=== PATIENT | male | born 1935 | race Caucasian/White ===

== ENCOUNTER 2019-06-08 06:17 | Inpatient (IN) ==
--- NOTE | 2019-05-16 09:43 | Anesthesiology Consultation ---
Date of Service May 16, 2019 Assessment & Plan (1) Encounter for pre-operative examination: - Awaiting review preop testing. - Awaiting surgeon-ordered PCP clearance done 05/11 (Dr. Verdin). Chart Review Chart Review: Patient seen in Pre Admission Testing Teaching & Discussion Pre-Anesthesia Teaching/Discussion Notes: Instructed NPO after midnight before surgery,except medications with 15 cc of water. Medication instructions provided according to the PAT guidelines. History Surgery Operation Date: 06/08/19 08:55 Proposed Procedures p Left Total Knee Arthroplasty - Flash Vogt MD Height/Weight Height: 5 ft 4 in Weight: 75.1 kg Allergies Allergy/AdvReac Type Severity Reaction Status Date / Time No Known Allergies Allergy Unknown Verified 05/10/19 10:14 Medications Home Medications Medication Instructions Recorded Confirmed Last Taken No Known Home Medications 05/09/18 05/10/19 Unknown Past Medical History Medical History Hearing deficit Osteoarthritis Prostate cancer 1993 s/p prostatectomy (per patient, unable to cath d/t scar tissue), no chemo/XRT Exercise / Class Metabolic Activity III < 4 Walking/Shop/Light housework Past Surgical History Surgical History H/O prostatectomy History of appendectomy History of cataract extraction right/left Hx of left inguinal hernia repair incarcerated hernia with bowel obstruction Past Anesthesia History No Family Hx of Anesthesia Complications and Other "Awareness" with colonoscopy/cataracts extraction. History of PONV No Hx of PONV and Hx of Motion Sickness ("seasick" x 1) Social History Smoking Status: Former smoker Do You Dip or Chew Tobacco: No Smoking End Date: QUIT 1985 Hx Alcohol Use: Yes Alcohol type: wine alcohol intake frequency: a few times a month Hx Substance Use: No substance use type: does not use Review of Systems Patient denies chest pain, shortness of breath, reflux, cough, wheezing, palpitations. Physical Exam Vital Signs VITALS BP 154/84 (Patient advised to followup with PCP regarding elevated BP) P 66 TEMP 97.5 SP02 95%RA RESP 16 PHYSICAL Full neck and c-spine range of motion. Full TMJ range of motion. TMD 3 finger breaths Mallampati Score 2 Dentition: full dentures upper/lower; edentulous Lungs: clear throughout to auscultation Cardiac: regular rate and rhythm, no murmurs noted Spine: normal Carotid arteries: negative bruit Extremities: no edema Testing Laboratory Results 05/16/19 10:03 05/16/19 10:03 PT 10.5 Seconds (9.0-12.0) 05/16/19 10:03 INR 1.0 (0.9-1.1) 05/16/19 10:03 APTT 26.9 Seconds (21.0-31.0) 05/16/19 10:03 Urine Color Yellow 05/16/19 10:03 Urine Appearance Clear (Clear) 05/16/19 10:03 Urine pH 7.0 (4.5-7.5) 05/16/19 10:03 Ur Specific Meade 1.015 (1.000-1.030) 05/16/19 10:03 Urine Protein Negative (Negative) 05/16/19 10:03 Urine Glucose (UA) Negative (Negative) 05/16/19 10:03 Urine Ketones Negative (Negative) 05/16/19 10:03 Urine Nitrite Negative (Negative) 05/16/19 10:03 Ur Leukocyte Esterase Negative (Negative) 05/16/19 10:03 Blood Type A Positive 05/16/19 10:03 Antibody Screen NEGATIVE 05/16/19 10:03 Electrocardiogram Date: 05/11/19 Findings: + NSR @ (68)
--- NOTE | 2019-05-16 10:49 | XRay Report ---
XR chest Pre-admission PA/Lat CLINICAL HISTORY: PAT preoperative COMPARISON STUDY: 01/23/2015 FINDINGS: The bones soft tissues and hemidiaphragms are normal. The cardiomediastinal silhouette is n ormal. The lungs are clear. The pulmonary vasculature is normal. IMPRESSION: Negative chest. The above report was generated using voice recognition software. It may contain grammatical, syntax or spelling errors. Electronically signed by: Omar Lindsay M.D. 05/16/2019 10:48 AM
[2019-05-16 10:54] LABS: Basophils # (auto) 0.01 K/uL (0-0.2); Basophils % (auto) 0.2 %; Eosinophils # (auto) 0.09 K/uL (0-0.5); Eosinophils % (auto) 2.1 %; Hematocrit (blood only) 38.3 % (42-52); Hemoglobin 12.7 g/dL (14.0-18.0); Immature Granulocytes # (auto) 0.02 K/uL (0.00-0.02); Immature Granulocytes % (auto) 0.5 %; Lymphocytes # (auto) 1.24 K/uL (1.2-3.4); Lymphocytes % (auto) 29.2 %; Mean Corpuscular Hemoglobin 30.6 pg (25-34); Mean Corpuscular Hgb Conc 33.2 g/dL (32-36); Mean Corpuscular Volume 92.3 fL (80-100); Mean Platelet Volume 11.3 fL (7.4-10.4); Monocytes # (auto) 1.02 K/uL (0.11-0.59); Monocytes % (auto) 24.1 %; Neutrophils # (auto) 1.86 K/uL (1.4-6.5); Neutrophils % (auto) 43.9 %; Platelet Count 230 K/uL (130-400); RDW Coefficient of Variation 12.7 % (11.5-14.5); RDW Standard Deviation 42.8 fL (36.4-46.3); Red Blood Count 4.15 M/uL (4.7-6.1); White Blood Count 4.24 K/uL (4.8-10.8)
[2019-05-16 10:57] LABS: Appearance Urine Clear (Clear); Bilirubin Urine Negative (Negative); Blood Urine Negative (Negative); Color Urine Yellow; Glucose Urine UA Negative (Negative); Ketones Urine Negative (Negative); Leukocyte Esterase Urine Negative (Negative); Nitrite Urine Negative (Negative); Protein Urine Negative (Negative); Specific Gravity Urine 1.015 (1.000-1.030); Urobilinogen Urine Negative (Negative)
[2019-05-16 11:02] LABS: BUN Creatinine Ratio 18.4 (10-20); Creatinine Clr Calc Pharmacy 56.7 ml/min; Est GFR (African American) 90.6; Est GFR (Non-African American) 78.2; Potassium 4.4 mmol/L (3.5-5.1)
[2019-05-16 11:09] LABS: Partial Thromboplastin Time 26.9 Seconds (21.0-31.0); Prothrombin Time 10.5 Seconds (9.0-12.0)
--- NOTE | 2019-05-17 15:47 | History and Physical Report ---
DATE OF ADMISSION: 06/08/2019 PATIENT OF: Flash Vogt MD. CHIEF COMPLAINT: Left knee pain. HISTORY OF PRESENT ILLNESS: This 83-year-old white male presents with his for evaluation of his left knee. He has had a longstanding history of left knee pain. He has been dealing with it for many years. He initially tried cortisone injections and viscosupplementation injections with fairly good relief. His last series in December did not change his knee pain. He has tried activity modification as well as oral pain medication without lasting improvement. He elects to proceed with total knee arthroplasty in hopes of alleviating his pain. Pain is worse with weightbearing. It is affecting his ADLs. No numbness or tingling. He denies any swelling. Frequent night pain. Preoperative imaging has been obtained. PAST MEDICAL HISTORY: Significant for osteoarthritis, history of prostate cancer, actinic keratosis and tinea corporis. FAMILY HISTORY: Significant for liver disease and hypertension. Parents are . SOCIAL HISTORY: The patient is . Retired. No tobacco use, quit smoking in 1985. Occasional ETOH use. PAST SURGICAL HISTORY: Cataract surgery, colonoscopy, prostatectomy, inguinal hernia repair in 2014. REVIEW OF SYSTEMS: A total of 10 systems are reviewed and are significant only for above-stated conditions. PHYSICAL EXAMINATION: VITAL SIGNS: Height 164 cm, weight 75.5 kg, temperature 98.2 oral, pulse 67, BP 150/80, O2 sat 97% on room air. GENERAL: Well-developed, well-nourished elderly white male in no acute distress. Sitting in a chair. Alert and oriented. SKIN: Warm and dry with good turgor. No rashes or lesions. No ecchymosis or erythema. No intraarticular effusion. HEENT: Normocephalic, atraumatic. Eyes PERRLA, EOMI. Nares patent bilaterally without turbinate enlargement. Oropharynx without erythema or exudate. No lesions noted. Uvula midline. Oral mucosa moist. Upper and lower denture plates are noted. Hearing aids are present bilaterally. HEART: RRR. No MGR. LUNGS: Clear to auscultation bilaterally. No crackles, rhonchi or wheezing. Good air movement. ABDOMEN: Bowel sounds present x4, soft, nontender. No organomegaly. No masses. MUSCULOSKELETAL: Left knee evaluation reveals obvious arthritic changes. He has palpable and audible crepitus with motion. Full terminal extension. Flexion to greater than 110 degrees. Strength is 5/5 with fairly good quad tone. Varus alignment. Lateral subluxation of the tibia. MCL and LCL are intact with stressing. Pseudovalgus laxity. No defect in the patellar tendon or quadriceps tendon. He does have discomfort with palpation over the medial and lateral joint lines today. Medial is worst. Ambulatory with an antalgic gait. NEUROLOGIC: Cranial nerves II through XII are intact. Gross sensation is intact across both lower extremities by soft touch. Peripheral pulses are 2+. DATA: Radiographic imaging previously obtained shows end-stage DJD of the left knee. Periarticular osteophytes, subchondral sclerosis, and joint space narrowing are all present. Marked subluxation of the tibia. IMPRESSION: Left knee end-stage degenerative joint disease. PLAN: Postoperative prescription for Percocet and Coumadin will be provided at discharge from the hospital. Anticipate discharge to home with home health services. He already has a walker. Preoperative lab work, EKG, and chest x-ray have been ordered. He has already seen his PCP for medical clearance.
[~2019-06-08 06:17] MED LIST: LR 15ML/HR IV SCH; LR 60ML/HR IV SCH; ROPIVACAINE 0.5% HCL/PF 150 MG, BUPIVACAINE 0.5% MPF 30 ML, EPINEPHrine 0.15 MG, Ketoro... INFIL SCH; TRANEXAMIC ACID 1,000 MG **IV Pre-op IV SCH
[2019-06-08] MEDS ORDERED: EPINEPHrine INJ 1 MG/ML AMP ONE (06:31)
[2019-06-08] MEDS ORDERED: ROPIVACAINE 0.5% 5 MG/ML 30 ML VIAL ONE (06:31)
[2019-06-08] MEDS ORDERED: BUPIVACAINE 0.5 % 5 MG/1 ML PF 10ML VIAL ONE (06:31)
--- NOTE | 2019-06-08 06:34 | History & Physical Bridge Note ---
Date of Service June 08, 2019 History & Physical Bridge Note I have examined the patient, reviewed the History & Physical and in the interval since the performance of the History & Physical I have noted the following changes of clinical significance: consent verified.no changes noted
[2019-06-08] MEDS ORDERED: LACTATED RINGER'S 500 ML IV ONE (07:14)
[2019-06-08] MEDS ORDERED: fentaNYL citrate 100 MCG/2 ML VIAL ONE (07:54)
[2019-06-08] MEDS ORDERED: MIDAZOLAM HCL 1 MG/ML 2ML VIAL ONE (07:54)
[2019-06-08] MEDS ORDERED: fentaNYL citrate 100 MCG/2 ML VIAL IV PRN (08:24)
[2019-06-08] MEDS ORDERED: ATROPINE SULFATE 0.1 MG/ML 10ML SYR IV PRN (08:24)
[2019-06-08] MEDS ORDERED: LABETALOL HCL IV 5 MG/ML 20ML IV PRN (08:24)
[2019-06-08] MEDS ORDERED: HYDROmorphone INJ 1 MG/ML SYRINGE IV PRN (08:24)
[2019-06-08] MEDS ORDERED: ePHEDrine sulfate 50 MG/ML AMP IV PRN (08:24)
[2019-06-08] MEDS ORDERED: ONDANSETRON INJ 2 MG/ML 2 ML VIAL IV PRN ×2 (08:24→11:56)
[2019-06-08] MEDS ORDERED: PHENYLEPHRINE 100MCG/ML 5ML SYR IV PRN (08:24)
[2019-06-08] MEDS ORDERED: PROPOFOL IV EMULSION 10 MG/ML 20 ML VIAL IV ONE ×2 (08:42→10:31)
[2019-06-08] MEDS ORDERED: ONDANSETRON INJ 2 MG/ML 2 ML VIAL ONE (08:42)
[2019-06-08] MEDS ORDERED: ORTHO JOINT ANESTHETIC ONE (08:43)
[2019-06-08] MEDS: CEFAZOLIN 2000MG 2,000 MG/15 ML SYR IV SCH ×3 (09:04→17:09)
[2019-06-08] MEDS ORDERED: CEFAZOLIN 250 MG/ML 1 GM VIAL ONE (10:08)
--- NOTE | 2019-06-08 10:37 | Post Operative Brief Note ---
Immediate Post Op Note v1 Date of Surgery June 08, 2019 Pre & Post Diagnosis Operation Date: 06/08/19 08:50 Pre-Op Diagnosis: Left Knee Degenerative Joint Disease Post-Op Diagnosis: Left Knee Degenerative Joint Disease Procedure Operation Date: 06/08/19 08:50 Actual Procedures p Left Total Knee Arthroplasty(Left) - Flash Vogt MD Surgeon Flash Vogt MD Chlorine Cell Tender tiffany/erlinda Estimated Blood Loss 50 Findings Consistent with Post-Op Diagnosis
--- NOTE | 2019-06-08 10:45 | Operative Report ---
Post Operative Report Pre & Post Diagnosis Operation Date: 06/08/19 08:50 Pre-Op Diagnosis: Left Knee Degenerative Joint Disease Post-Op Diagnosis: Left Knee Degenerative Joint Disease Procedure Operation Date: 06/08/19 08:50 Actual Procedures p Left Total Knee Arthroplasty(Left) - Flash Vogt MD Surgeon Flash Vogt MD Head Of Academic Technology tiffany/erlinda Estimated Blood Loss 50 Findings Consistent with Post-Op Diagnosis Specimens As per the procedure notes Disposition Accompanied Patient To Recovery: Yes Disposition: Recovery Room Description of Procedure Supine, standard prep and drape, tourniquet, timeout for patient safety Left total knee arthroplasty Please see Dr. Vogt's procedure notes for specific details I was present throughout the case, assisted for wound closure, and transfer the patient to PACU in stable condition. I attest to the content of the Intraoperative Record and any orders documented therein. Any exceptions are noted below.
--- NOTE | 2019-06-08 10:49 | Operative Report ---
Post Operative Report Pre & Post Diagnosis Operation Date: 06/08/19 08:50 Pre-Op Diagnosis: Left Knee Degenerative Joint Disease Post-Op Diagnosis: Left Knee Degenerative Joint Disease Procedure Operation Date: 06/08/19 08:50 Actual Procedures p Left Total Knee Arthroplasty(Left) - Flash Vogt MD Surgeon HUY Vogt MD Hazardous Materials Driver tiffany/erlinda Estimated Blood Loss 50 Findings Consistent with Post-Op Diagnosis Specimens see operative report Drains none Complications none Disposition Accompanied Patient To Recovery: Yes Disposition: Recovery Room Indications This 83-year-old white male presented to the office with complaints of intractable left knee pain. He had tried conservative care measures including activity modification, Visco supplementation and steroid injections without lasting relief. He elected to proceed with surgical intervention after being educated about potential risks and outcomes. Preoperative imaging was obtained. Description of Procedure Patient was administered a spinal anesthetic and then taken to the operating room where he was given sedation. He was prepped and draped in usual sterile fashion. Please see Dr. Vogt's operative report for specifics of the procedure. I was present for the entire case from initial patient positioning through final wound closure. Assistance was provided in tissue retraction, hemostasis, trial implant placement, final implant placement, and final wound closure. Patient was taken to the recovery room in satisfactory condition. I attest to the content of the Intraoperative Record and any orders documented therein. Any exceptions are noted below.
[2019-06-08] MEDS ORDERED: VANCOMYCIN HCL 1,000 MG in SODIUM CHLORIDE 0.9% 250 ML IV SCH (11:00)
--- NOTE | 2019-06-08 11:08 | Operative Report ---
DATE OF OPERATION: 06/08/2019 SURGEON: Flash Vogt MD SCREEN CLEANER: Vianey. SECOND SCREEN CLEANER: Davey Paris PA-C PREOPERATIVE DIAGNOSIS: Osteoarthritis with varus flexion deformity, left knee. POSTOPERATIVE DIAGNOSIS: Osteoarthritis with varus flexion deformity, left knee. OPERATION PERFORMED: Cemented left knee replacement. SUMMARY OF IMPLANTS: Size 3 left femur, posterior cruciate substituting size 4 mobile bearing tray, size 3 insert to match the femur, 10 mm thick posterior cruciate substituting patella resurfacing 38 three peg patella, 2 bags of Palacos G cement. ESTIMATED BLOOD LOSS: 50 mL. CRYSTALLOID: Per anesthesia. PATHOLOGY: Pending on resections. PERIOPERATIVE SITUATION: Medically cleared male with intractable knee pain, has bilateral severe knee disease with marked flexion varus deformity. At this point in time, x-rays reveal tricompartmental disease. He wished to proceed with the left since that is more symptomatic. He understands the risks and consequences, see consent. DESCRIPTION OF PROCEDURE: The patient appropriately identified, site verified, consent verified. Antibiotics confirmed as being given. The left lower extremity was prepped and draped in usual routine fashion. Tourniquet was inflated to 300 mmHg after exsanguination of limb with a rubber Esmarch bandage for a total of 52 minutes. Midline exposure utilized. Parapatellar arthrotomy performed. Synovectomy completed. Osteophytes resected. During resection, one of the medial osteophytes went airborn and may have inadvertently hit the light or my head set; because The area irrigated was with Betadine and gave an additional gram of Ancef at the end of the case; the area was also covered with fresh sheets. The femur was resected 14 mm. The tibia was resected 4 mm. The extension gap was excellent. The issue noted above occurred after the distal femur was resected. Once the extension gap was excellent, the femur was sized to between 4 and 3, was measured 4 cut 3. There was no notching. The flexion gap was then checked. It was excellent. The box cut was then made. The size 3 fit well. The tibia was broached and reamed to a size 4 and a trial spacer placed 10 mm. That allowed excellent extension, mid range flexion and full flexion stability and alignment was anatomic. The patella was then everted. The area was trimmed of any extra synovium resected leaving 15 mm and a 38 button fit best. Seating holes made and trial tracked well. The knee was then injected with the Orthomix anteriorly posteriorly. Through the notch, 2 syringes were placed back. The wound was irrigated with Betadine Pulsavac and then the implants were then cemented in position, tibia, femur and patella in that sequence. After 12 minutes, the tourniquet deflated. Minor bleeding points controlled with electrocautery. The wound was then irrigated with Betadine and Pulsavac after the trial liner was removed. There was no need for any cement removal. The permanent liner was then seated. The knee reduced and closed with #2 Vicryl and 2-0 Vicryl and stainless steel clips. Appropriate dressing applied. The patient transferred to recovery room in satisfactory condition having tolerated the procedure well. Pathology pending on bone. DVT prophylaxis per protocol. I attest to the content of the Intraoperative Record and any orders documented therein. Any exceptions are noted below. DIOMEDES
--- NOTE | 2019-06-08 11:11 | Anesthesiology Progress Note ---
Date of Service June 08, 2019 Anesthesia Post Procedure Vital Signs Vital Signs: Temp Pulse Pulse Resp BP Pulse Ox 06/08/19 11:00 71 16 125/74 94 06/08/19 10:50 73 14 126/71 96 06/08/19 10:44 36.0 C L 77 17 113/58 L 99 06/08/19 06:45 36.7 C 75 18 159/87 H 96 Pain Intensity Left Knee: Pain Intensity: 1 Transfer of Care Handoff Completed per policy Notes Mental Status: alert / awake / arousable Patient Amnestic to Procedure: Yes Nausea / Vomiting: adequately controlled Pain: adequately controlled Airway Patency, RR, SpO2: stable & adequate BP & HR: stable & adequate Hydration State: stable & adequate Neuraxial Anesthesia: was administered and sensory block is resolving Anesthetic Complications: no major complications apparent and Pt Satisfied with anesthetic care
--- NOTE | 2019-06-08 11:17 | XRay Report ---
XR knee LT 2V routine HISTORY: 83 years-old Male Surgical Post Op [total joint arthroplasty. History of degenerative joint disease COMPARISON: [Radiographs 05/16/2019 TECHNIQUE: 2 views of the left knee FINDINGS: Left knee total joint arthroplasty with patellar resurfacing. Satisfactory alignment without acute fr acture or retained foreign body. Anterior midline skin elizabeth with expected postsurgical soft tissue swelling and deep tissue air. IMPRESSION: Satisfactory alignment of the left knee total joint arthroplasty. The above report was generated using voice recognition software. It may contain grammatical, syntax o r spelling errors. Electronically signed by: Patrice Villaseñor M.D. 06/08/2019 11:15 AM
[2019-06-08] MEDS ORDERED: MAGNESIUM HYDROXIDE SUSP 30 ML UDC PO PRN (11:56)
[2019-06-08] MEDS ORDERED: OXYCODONE HCL IR 5 MG TAB (IMMEDIATE RELEASE) PO PRN (11:56)
[2019-06-08] MEDS ORDERED: ALUMINUM/MAGNESIUM SUSP 30 ML UDC PO PRN (11:56)
[2019-06-08] MEDS ORDERED: bisacodyL 10 MG SUPP PR PRN (11:56)
[2019-06-08] MEDS ORDERED: NALOXONE HCL 0.4 MG/1 ML VIAL/CARP IV PRN (11:56)
[2019-06-08] MEDS ORDERED: SODIUM CHLORIDE 0.9% 1000ML 1,000 ML IV SCH (11:56)
[2019-06-08] MEDS ORDERED: TAMSULOSIN HCL 0.4 MG CAP PO PRN (11:56)
[2019-06-08] MEDS ORDERED: METOCLOPRAMIDE HCL INJ 5 MG/ML 2 ML VIAL IV PRN (11:56)
[2019-06-08] MEDS ORDERED: DiphenhydrAMINE HCL 50 MG/ML VIAL IV PRN (11:56)
[2019-06-08] MEDS ORDERED: HYDROmorphone INJ 0.5 MG/0.5 ML SYR IV PRN (11:56)
[2019-06-08] MEDS: KETOROLAC TROMETHAMINE 15 MG/ML VIAL IV SCH ×2 (12:46→17:34)
[2019-06-08] MEDS ORDERED: ORTHO WARFARIN NOMOGRAM SCH (14:00)
[2019-06-08] MEDS ORDERED: WARFARIN SOD 5 MG TAB PO ONE (14:15)
[2019-06-08] MEDS: ORTHO WARFARIN NOMOGRAM SCH (14:18)
[2019-06-08] MEDS: ACETAMINOPHEN 500 MG TAB PO SCH ×2 (14:24→22:14)
[2019-06-08] MEDS ORDERED: TRANEXAMIC ACID 1,000 MG in 0.9 % SODIUM CHLORIDE 100 ML IV SCH (16:50)
[2019-06-08] MEDS: FERROUS GLUCONATE 324 MG TAB PO SCH (17:33)
[2019-06-08] MEDS: ASCORBIC ACID 500 MG TAB PO SCH (17:33)
--- NOTE | 2019-06-08 17:42 | Progress Note ---
DATE: 06/08/2019 Postop check status post left total knee replacement. The patient is doing extremely well, sitting up in bed, is happy, has minimal discomfort. He notes no nausea, vomiting, chest pain, shortness of breath, fever or chills. Vital signs are stable. He is afebrile. Neurovascular check femoral sciatic nerve is normal. Wound dressing clean, dry and intact. Postop x-rays look excellent. ASSESSMENT: Doing well. Continue with care pathway. Mobilize in the hallway with walking. Wear a knee immobilizer for the first 48-72 hours when he is up and walking only. I will discharge tomorrow. Saline lock IV fluids.
[2019-06-08] MEDS: DOCUSATE SODIUM 100 MG CAP PO SCH (20:22)
[2019-06-08] MEDS ORDERED: SENNA 8.6 MG TAB PO SCH (21:00)
--- NOTE | 2019-06-08 21:53 | Discharge Summary ---
CHIEF COMPLAINT: Left knee pain. HISTORY OF PRESENT ILLNESS: The patient underwent elective left total knee replacement. Today, his hospital course has been uneventful. He is sitting up in chair, eating, drinking, voiding and no issues. PAST MEDICAL HISTORY: Remarkable for osteoarthritis, prostate cancer, actinic keratosis, tinea corporis. FAMILY HISTORY: Remarkable for liver disease, hypertension. Parents are . SOCIAL HISTORY: Reveals he is , retired. No tobacco or alcohol use. Previous smoker, quit in 1985. PAST SURGICAL HISTORY: Remarkable for cataract surgery, colonoscopy, prostatectomy, inguinal hernia repair. REVIEW OF SYSTEMS: Reveals no chest pain, shortness of breath, fever, chills, nausea, vomiting or headache. HOSPITAL COURSE: Has been uneventful. At this point in time, he is up ambulatory. He is voiding. He is eating, is drinking well. Saline lock his IV. His x-rays look excellent postop. DVT prophylaxis per protocol and discharged tomorrow.
[2019-06-09] MEDS: CEFAZOLIN 2000MG 2,000 MG/15 ML SYR IV SCH (00:43)
[2019-06-09] MEDS: KETOROLAC TROMETHAMINE 15 MG/ML VIAL IV SCH ×2 (00:43→06:14)
[2019-06-09 05:35] LABS: Hematocrit (blood only) 31.4 % (42-52); Hemoglobin 10.8 g/dL (14.0-18.0); Mean Corpuscular Hemoglobin 31.6 pg (25-34); Mean Corpuscular Hgb Conc 34.4 g/dL (32-36); Mean Corpuscular Volume 91.8 fL (80-100); Mean Platelet Volume 10.9 fL (7.4-10.4); Platelet Count 193 K/uL (130-400); RDW Coefficient of Variation 12.5 % (11.5-14.5); RDW Standard Deviation 42.2 fL (36.4-46.3); Red Blood Count 3.42 M/uL (4.7-6.1); White Blood Count 9.52 K/uL (4.8-10.8)
[2019-06-09 06:02] LABS: INR 1.2 (0.9-1.1); Prothrombin Time 12.1 Seconds (9.0-12.0)
[2019-06-09 06:04] LABS: BUN Creatinine Ratio 15.4 (10-20); Calcium 7.9 mg/dl (8.5-10.1); Est GFR (African American) 83.8; Est GFR (Non-African American) 72.3; Potassium 4.1 mmol/L (3.5-5.1)
[2019-06-09] MEDS: ACETAMINOPHEN 500 MG TAB PO SCH (06:14)
--- NOTE | 2019-06-09 07:19 | Progress Note ---
DATE: 06/09/2019 SUBJECTIVE: Doing well status post left total knee replacement. He is active, is out of bed, moving around in the room, walking in the halls. He denies chest pain, shortness of breath, fever, chills, nausea, vomiting or headache. OBJECTIVE: Vital signs are stable. He is afebrile. Neurovascular check femoral sciatic nerve is normal. Can do straight leg raise. Wound dressing is clean, dry and intact. Calves nontender. Hematocrit stable at 31. INR is 1.2. Glucoses are good. ASSESSMENT AND PLAN: Doing well. Discharge to home today after PT, OT. Change dressing by PA today. Discharge on 4 mg Coumadin. Check INR on Thursday.
[2019-06-09] MEDS: ASCORBIC ACID 500 MG TAB PO SCH (07:51)
[2019-06-09] MEDS: FERROUS GLUCONATE 324 MG TAB PO SCH (07:52)
[2019-06-09] MEDS: DOCUSATE SODIUM 100 MG CAP PO SCH (07:52)
[2019-06-09] MEDS ORDERED: dexAMETHasone 10 MG in SYRINGE 0 ML IV SCH (08:00)
--- NOTE | 2019-06-09 08:21 | Anesthesiology Progress Note ---
Date of Service June 09, 2019 Anesthesia Post Procedure Vital Signs Vital Signs: Temp Pulse Pulse Resp BP Pulse Ox 06/09/19 07:18 36.5 C 68 16 127/75 97 06/09/19 03:55 36.5 C 66 18 130/72 96 06/09/19 00:13 36.5 C 70 17 117/64 95 06/08/19 20:05 36.3 C L 79 17 118/81 93 06/08/19 15:55 36.4 C L 75 18 143/77 H 92 06/08/19 13:46 36.4 C L 64 18 147/80 H 95 06/08/19 12:48 57 L 16 154/81 H 97 06/08/19 12:15 58 L 16 161/77 H 95 06/08/19 11:45 36.4 C L 64 16 149/77 H 96 06/08/19 11:30 66 15 139/76 96 06/08/19 11:20 36.2 C L 64 17 123/88 96 06/08/19 11:10 70 12 140/74 97 06/08/19 11:00 71 16 125/74 94 06/08/19 10:50 73 14 126/71 96 06/08/19 10:44 36.0 C L 77 17 113/58 L 99 Pain Intensity Left Knee: Pain Intensity: 0 Notes Mental Status: alert / awake / arousable and participated in evaluation Patient Amnestic to Procedure: Yes Nausea / Vomiting: adequately controlled Pain: adequately controlled Airway Patency, RR, SpO2: stable & adequate BP & HR: stable & adequate Hydration State: stable & adequate Neuraxial Anesthesia: was administered and sensory block resolved Anesthetic Complications: no major complications apparent
[2019-06-09] MEDS ORDERED: MULTIVITAMIN TAB PO SCH (09:00)
--- NOTE | 2019-06-09 10:11 | Orthopedic Progress Note ---
Date of Service June 09, 2019 Assessment & Plan (1) S/P total knee arthroplasty: Dressing was changed by me this morning. He will remain in place until Thursday and then change as needed for soiling. PT/OT this morning prior to discharge. Discharge to home with home health services. Coumadin 4 mg daily through the weekend and recheck his blood on Thursday Continue ANDRES hose for 20 hours a day Follow-up in the office in 2 weeks as scheduled Call the office with any other concerns Prescription was provided for a wheeled walker. He will use this at all times when ambulating. Subjective Patient is seen in his room this morning. He is in good spirits. He has already been out of bed and walked around the hallway with his walker. He feels ready for discharge. He states his knee pain is no worse than it was preop. No other complaints at this time. No chest pain, shortness of breath, nausea, vomiting, numbness, or tingling. Review of Systems Review of Systems: Unchanged from preop Physical Exam Physical Exam: General: Well-developed, well-nourished, elderly white male, in no acute distress. Laying in bed. Alert and oriented. Conversive. Skin: Bulky postop dressing is intact on the left leg. Upon removal, he has expected postoperative edema at the knee. No ecchymosis. No active drainage. Scant dry drainage on his dressings. Deion are intact. Wound edges well approximated. No warmth. Musculoskeletal: Patient has intact motor function to his ankles and toes. He is able to perform a straight leg raise without assistance. Very good knee flexion. Neurologic: Gross sensation is intact across all aspects of the left leg by soft touch. Peripheral pulses are 2+. Results & Data Vital Signs (Past 12 Hours) Vital Signs Temp Pulse Resp BP Pulse Ox 06/09/19 07:18 36.5 C 68 16 127/75 97 06/09/19 03:55 36.5 C 66 18 130/72 96 06/09/19 00:13 36.5 C 70 17 117/64 95 Laboratory Results H&H 10.8 and 31.4. INR 1.2. Glucose 115.
[2019-06-09] MEDS: ORTHO WARFARIN NOMOGRAM SCH (10:59)
[2019-06-09] MEDS ORDERED: WARFARIN SOD 5 MG TAB PO ONE (16:00)
== END 2019-06-09 11:53 | disposition home health service (06) | DRG 470 ==
LOC: ASU 06:17 → 3E 10:54

== ENCOUNTER 2022-04-19 07:20 | Inpatient (IN) ==
[2022-04-19 08:15] LABS: Basophils # (auto) 0.03 K/uL (0-0.2); Basophils % (auto) 0.5 %; Eosinophils # (auto) 0.48 K/uL (0-0.50); Eosinophils % (auto) 8.5 %; Hematocrit (blood only) 34.1 % (40.1-51.0); Hemoglobin 11.8 g/dl (14.0-18.0); Immature Granulocytes # (auto) 0.04 K/uL (0.00-0.02); Immature Granulocytes % (auto) 0.7 %; Lymphocytes # (auto) 1.62 K/uL (1.2-3.4); Lymphocytes % (auto) 28.5 %; Mean Corpuscular Hemoglobin 30.6 pg (25.0-34.0); Mean Corpuscular Hgb Conc 34.6 g/dL (32.0-36.0); Mean Corpuscular Volume 88.3 fL (80.0-100.0); Mean Platelet Volume 10.6 fL (9.4-12.4); Monocytes # (auto) 1.17 K/uL (0.24-0.82); Monocytes % (auto) 20.6 %; Neutrophils # (auto) 2.34 K/uL (1.4-6.5); Neutrophils % (auto) 41.2 %; Platelet Count 274 K/uL (130-400); RDW Coefficient of Variation 12.5 % (11.5-14.5); RDW Standard Deviation 40.1 fL (36.4-46.3); Red Blood Count 3.86 M/uL (4.63-6.08); White Blood Count 5.68 K/ul (4.8-10.8)
--- NOTE | 2022-04-19 08:26 | CT Scan Report ---
HEAD CT NONCONTRAST CT DOSE: HISTORY: dizziness TECHNIQUE: Multiaxial CT images of the head were performed without the use of intravenous contrast. A utomated exposure control was utilized for this study. A dose lowering technique was utilized adheri ng to the principles of ALARA. Comparison: None. Findings: Mild mucosal thickening within the right maxillary sinus. The mastoid air cells are clear. Prior bilateral lens replacement. The calvarium and skull base are intact. There is no mass, hematoma , midline shift, acute infarct. White matter hypodensity is nonspecific but suggestive of microvascul ar ischemic change. The ventricles and sulci demonstrate mild age-related involutional changes. 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 Impression: No acute intracranial abnormality. Atrophy and microvascular ischemic changes. ACT 112: Negative or not required by law. Electronically signed by: Zeferino Kruger M.D. 04/19/2022 8:24 AM
--- NOTE | 2022-04-19 08:28 | CT Scan Report ---
CT SCAN OF THE ABDOMEN AND PELVIS WITHOUT IV CONTRAST CLINICAL HISTORY: Left lower quadrant abdominal pain. COMPARISON STUDY: Abdominal CT dated 02/19/2021. TECHNIQUE: CT scan of the abdomen and pelvis is performed from the lung bases to the proximal femora. Images are reviewed in the axial, sagittal, and coronal planes. IV contrast was not administered for this examination. Note that the examination was performed in suboptimal fashion without oral and IV contrast. A dose lowering technique was utilized adhering to the principles of ALARA. CT DOSE: 963.90 mGy.cm FINDINGS: Lung bases: The heart is mildly enlarged and without pericardial effusion. The coronary arteries are densely calcified. Emphysematous change is suspected. There is bibasilar scarring/atelectasis. The sage ng bases are otherwise clear. There is a tiny hiatal hernia. Liver: The unenhanced liver is normal in size, contour, and attenuation. There is no intrahepatic paolo iary ductal dilatation. Gallbladder: The gallbladder is distended but otherwise normal as imaged. Spleen: Normal in size and attenuation. Pancreas: The unenhanced pancreas is atrophic. There is peripancreatic infiltration. No perihepatic f luid collection is identified. Adrenal glands: Unremarkable. Kidneys: The unenhanced kidneys demonstrate mild cortical atrophy and are without hydronephrosis. The re are no renal calculi identified. There is no evidence of contour deforming renal mass lesion. Abdominal vasculature: The abdominal aorta is normal in course and caliber noting advanced atheroscle rotic calcification. Bowel: There is advanced colonic diverticulosis without CT evidence of acute diverticulitis. Moderate fecal retention is noted throughout the colon. The appendix is not identified and reported surgical ly absent. There are numerous pericolonic lymph nodes adjacent to the sigmoid which measure up to 9 m m. Peritoneum: There is no intraperitoneal free air or abdominal ascites. There is a fat-containing umbi lical hernia. Lymphadenopathy: None. Pelvic viscera: The bladder is decompressed around a suprapubic catheter and not well evaluated. The prostate gland is surgically absent. Surgical clips are seen throughout the pelvis. Skeletal structures: The skeletal structures are osteopenic. There is mild number sacral spondylosis. No lytic or blastic lesions are seen. IMPRESSION: 1. 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 Correlate with clinical findings and se rum amylase/lipase levels for evidence of acute pancreatitis. 2. Advanced colonic diverticulosis without CT evidence of acute diverticulitis. 3. Moderate constipation. 4. There are numerous mildly enlarged pericolonic lymph nodes above the sigmoid. These are pathologic ally indeterminant but new as compared to 02/19/2021. These may be reactive. If warranted, a colonosco py could be considered for assessment of the underlying colon. Also consider correlation with serum P SA levels given the pelvic location and history of prostatectomy. 5. A suprapubic bladder catheter is in place. 6. Additional findings as above. ACT 112: Negative or not required by law. Electronically signed by: Matthieu Villa M.D. 04/19/2022 8:27 AM
[2022-04-19 08:47] LABS: BUN Creatinine Ratio 16.7 (10-20); Creatinine Clr Calc Pharmacy 55.9 ml/min; Est GFR (African American) 94.1 ml/min; Est GFR (Non-African American) 81.2 ml/min; Potassium 3.6 mmol/L (3.5-5.1)
[2022-04-19 08:51] LABS: Appearance Urine Cloudy (Clear); Bacteria Urine Automated 2+ (Negative); Bilirubin Urine Negative (Negative); Blood Urine Negative (Negative); Color Urine Yellow; Glucose Urine UA Negative (Negative); Ketones Urine Negative (Negative); Leukocyte Esterase Urine 2+ (Negative); Nitrite Urine Positive (Negative); RBC Urine Automated 0-4 /hpf (0-4); Specific Gravity Urine 1.016 (1.000-1.030); Urobilinogen Urine Negative (Negative); WBC Urine Automated >30 /hpf (0-5)
[2022-04-19 08:53] LABS: Protein Urine 1+ (Negative)
[2022-04-19 09:02] LABS: Triple Phosphate Crystal Urine Present (None Prsent)
[2022-04-19] MEDS ORDERED: SODIUM CHLORIDE 0.9% 1000ML 1,000 ML IV SCH (09:30)
--- NOTE | 2022-04-19 10:52 | History & Physical Report ---
Date of Service April 19, 2022 Assessment & Plan (1) Unsteady gait: Plan: Associated with inability to use upper extremities properlyunclear etiology; possible posterior circulation cerebrovascular ischemiaaspirin, lipid panel; carotid duplex; MRI brain nonacute; neurology input pending (2) Urinary retention: Plan: With some pericatheter bleeding; urology input; at present nothing to suggest fr ank UTIdefer antibiotics (3) Elevated lipase: Plan: Unclear significance; possible low-grade pancreatitis; noted CT scan findings; at some point might merit PET scan/MRI given history of prostate cancer; clear liquids for now; continue fluids (4) Hypertension: Plan: Hold thiazide (5) Constipation: Plan: Treat; magnesium citrate not feasible; later proper bowel regimen Plan DNR; SCDs Aileen surrogate decision maker History of Present Illness Chief Complaint: Gait unsteadiness, hand weakness Primary Care Provider: Avni Verdin DO 86-year-old male with a history of hypertension, prostate cancer, 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 that has resolved; in addition, has had some nausea, vomiting; abdominal discomfort 4 to 5 days and bleeding around suprapubic catheter since about a week. No bleeding into the bag. He does additionally report constipation. No known fever. No other specific symptoms. In the ER, basic work-up showed mild anemia mild hyponatremia, urinary abnormalities, mildly elevated lipase. CT brain was nonacute, CT abdomen showed some peripancreatic infiltration, constipation, pericolonic lymph nodes. Please refer to our service for admission for further management Allergies Allergy/AdvReac Type Severity Reaction Status Date / Time No Known Drug Allergies Allergy NKDA Verified 04/19/22 15:26 pollen AdvReac Intermediate nasal Uncoded 04/19/22 15:26 congestion Home Medications Medication Instructions Recorded Confirmed Type acetaminophen 325 mg tablet 650 mg PO QID PRN Pain 09/16/21 04/19/22 History (Tylenol) hydrochlorothiazide 12.5 mg capsule 12.5 mg PO DAILY 09/16/21 04/19/22 History cranberry 400 mg capsule 0 mg PO DAILY PRN .. 04/19/22 04/19/22 History diphenhydramine 25 1 tab PO HS PRN Sleep 04/19/22 04/19/22 History mg-acetaminophen 500 mg tablet (Tylenol PM Extra Strength) Past Med/Surg History Medical History Arthritis Chronic anemia Isaac catheter in place Placed 4 weeks ago d/t urinary retention Hearing deficit History of prostate cancer 1993 s/p prostatectomy (per patient, unable to cath d/t scar tissue), no chemo/XRT Hx of vertigo Hypertension Osteoarthritis Tinea corporis Surgical History H/O prostate biopsy H/O prostatectomy History of appendectomy History of cataract extraction R/L History of colonoscopy History of cystoscopy Internal Urethrotomy (DVIU) and Incision of Bladder Neck (02/28/21): MAC at [facility] History of tooth extraction History of total knee replacement Left TKA (06/08/19): SAB at L3/L4 (x1 attempt) + PNB at [facility] Hx of left inguinal hernia repair Incarcerated hernia with bowel obstruction Family History Father Prostate cancer Hypertension Mother Liver disease Brother Lung cancer Hypertension Other No family history of adverse response to anesthesia Social History Smoking Status: Former smoker Second Hand Exposure: Yes (IN THE PAST); Hx Alcohol Use: Yes Alcohol type: wine Preferred Language: Japanese Communication Ability: Impaired Visual Impairment: No Limitations Hearing Ability: Normal Quality Assurance Representative Required: No Beliefs That Will Affect Care: None marital status: Current Living Situation: Spouse current occupational status: retired Feels Safe at Home: Yes Assistive Devices: Denture - Upper, Denture - Lower, Glasses and Hearing Aid - Bilateral Review of Systems Review of Systems: All systems reviewed, negative except as noted in history of present illness Physical Exam Physical Exam: Constitutional and general: No acute distress, looks biologic age Head and face: No puffiness, atraumatic Eyes: No scleral icterus, extraocular movements normal Neck: Supple, no JVD Musculoskeletal: No acute joint swelling, no bony abnormalities Skin/dermatologic/integument: No rash, no purpura Hematologic and lymphatic: pallor +, no petechia Gastrointestinal/abdomen: Nondistended, soft, nonacute Neurologic: Cranial nerves intact, nonfocal Psychiatry: Awake, alert, pleasant, communicative Cardiovascular: Heart rhythm regular, no rub, no murmur, no gallop Respiratory: Chest movements equal, no use of accessory muscles, no adventitious sounds Extremities: No edema, no cyanosis Suprapubic catheter in place with some pericatheter bleeding Results & Data Results & Data ([facility]) Vital Signs (Past 12 Hours) Vital Signs Temp Pulse Pulse Resp BP BP Pulse Ox 04/19/22 10:00 72 19 131/85 99 04/19/22 07:42 97 04/19/22 07:42 71 19 131/85 97 04/19/22 07:42 36.5 C 73 19 131/85 96 O2 Del Method 04/19/22 10:00 Room Air 04/19/22 07:42 Room Air 04/19/22 07:42 Room Air 04/19/22 07:42 Room Air Laboratory Results Laboratory Results - last 24 hr 04/19/22 04/19/22 04/19/22 07:50 07:50 07:50 WBC 5.68 RBC 3.86 L Hgb 11.8 L Hct 34.1 L MCV 88.3 MCH 30.6 MCHC 34.6 RDW Std Deviation 40.1 RDW Coeff of Latasha 12.5 Plt Count 274 MPV 10.6 Immature Gran % (Auto) 0.7 Neut % (Auto) 41.2 Lymph % (Auto) 28.5 [place] % (Auto) 20.6 Eos % (Auto) 8.5 Baso % (Auto) 0.5 Neut # (Auto) 2.34 Lymph # (Auto) 1.62 [place] # (Auto) 1.17 H Eos # (Auto) 0.48 Baso # (Auto) 0.03 Immature Gran # (Auto) 0.04 H Sodium 135 L Potassium 3.6 Chloride 101 Carbon Dioxide 27 Anion Gap 7 BUN 13 Creatinine 0.78 Est Cr Clr Drug Dosing 55.9 Est GFR ( Amer) 94.1 Est GFR (Non-Af Amer) 81.2 BUN/Creatinine Ratio 16.7 Glucose 132 H Calcium 9.0 Lipase 160 H Urine Color Urine Appearance Urine pH Ur Specific [place] Urine Protein Urine Glucose (UA) Urine Ketones Urine Blood Urine Nitrite Urine Bilirubin Urine Urobilinogen Ur Leukocyte Esterase Urine WBC (Auto) Urine RBC (Auto) U Hyaline Cast (Auto) U Epithel Cells (Auto) Urine Bacteria (Auto) Triple Phos Crystals SARS-CoV-2, RNA, NAAT 04/19/22 04/19/22 08:38 09:25 WBC RBC Hgb Hct MCV MCH MCHC RDW Std Deviation RDW Coeff of [place]asha Plt Count MPV Immature Gran % (Auto) Neut % (Auto) Lymph % (Auto) [place] % (Auto) Eos % (Auto) Baso % (Auto) Neut # (Auto) Lymph # (Auto) [place] # (Auto) Eos # (Auto) Baso # (Auto) Immature Gran # (Auto) Sodium Potassium Chloride Carbon Dioxide Anion Gap BUN Creatinine Est Cr Clr Drug Dosing Est GFR ( Amer) Est GFR (Non-Af Amer) BUN/Creatinine Ratio Glucose Calcium Lipase Urine Color Yellow Urine Appearance Cloudy A Urine pH 8.0 H Ur Specific [place] 1.016 Urine Protein 1+ H Urine Glucose (UA) Negative Urine Ketones Negative Urine Blood Negative Urine Nitrite Positive A Urine Bilirubin Negative Urine Urobilinogen Negative Ur Leukocyte Esterase 2+ H Urine WBC (Auto) >30 H Urine RBC (Auto) 0-4 U Hyaline Cast (Auto) 1-5 U Epithel Cells (Auto) 5-10 H Urine Bacteria (Auto) 2+ H Triple Phos Crystals Present A SARS-CoV-2, RNA, NAAT NEGATIVE Diagnostic Findings Abdomen/Pelvis CT 04/19/22 07:47 CT SCAN OF THE ABDOMEN AND PELVIS WITHOUT IV CONTRAST CLINICAL HISTORY: Left lower quadrant abdominal pain. COMPARISON STUDY: Abdominal CT dated 02/19/2021. TECHNIQUE: CT scan of the abdomen and pelvis is performed from the lung bases to the proximal femora. Images are reviewed in the axial, sagittal, and coronal planes. IV contrast was not administered for this examination. Note that the examination was performed in suboptimal fashion without oral and IV contrast. A dose lowering technique was utilized adhering to the principles of ALARA. CT DOSE: 963.90 mGy.cm FINDINGS: Lung bases: The heart is mildly enlarged and without pericardial effusion. The coronary arteries are densely calcified. Emphysematous change is suspected. There is bibasilar scarring/atelectasis. The lung bases are otherwise clear. There is a tiny hiatal hernia. Liver: The unenhanced liver is normal in size, contour, and attenuation. There is no intrahepatic biliary ductal dilatation. Gallbladder: The gallbladder is distended but otherwise normal as imaged. Spleen: Normal in size and attenuation. Pancreas: The unenhanced pancreas is atrophic. There is peripancreatic infiltration. No perihepatic fluid collection is identified. Adrenal glands: Unremarkable. Kidneys: The unenhanced kidneys demonstrate mild cortical atrophy and are without hydronephrosis. There are no renal calculi identified. There is no evidence of contour deforming renal mass lesion. Abdominal vasculature: The abdominal aorta is normal in course and caliber noting advanced atherosclerotic calcification. Bowel: There is advanced colonic diverticulosis without CT evidence of acute diverticulitis. Moderate fecal retention is noted throughout the colon. The appendix is not identified and reported surgically absent. There are numerous pericolonic lymph nodes adjacent to the sigmoid which measure up to 9 mm. Peritoneum: There is no intraperitoneal free air or abdominal ascites. There is a fat-containing umbilical hernia. Lymphadenopathy: None. Pelvic viscera: The bladder is decompressed around a suprapubic catheter and not well evaluated. The prostate gland is surgically absent. Surgical clips are seen throughout the pelvis. Skeletal structures: The skeletal structures are osteopenic. There is mild number sacral spondylosis. No lytic or blastic lesions are seen. IMPRESSION: 1. 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 Correlate with clinical findings and serum amylase/lipase levels for evidence of acute pancreatitis. 2. Advanced colonic diverticulosis without CT evidence of acute diverticulitis. 3. Moderate constipation. 4. There are numerous mildly enlarged pericolonic lymph nodes above the sigmoid. These are pathologically indeterminant but new as compared to 02/19/2021. These may be reactive. If warranted, a colonoscopy could be considered for assessment of the underlying colon. Also consider correlation with serum PSA levels given the pelvic location and history of prostatectomy. 5. A suprapubic bladder catheter is in place. 6. Additional findings as above. ACT 112: Negative or not required by law. Electronically signed by: Matthieu Villa M.D. 04/19/2022 8:[address] 04/19/22 07:[address] DOSE: HISTORY: dizziness TECHNIQUE: Multiaxial CT images of the head were performed without the use of intravenous contrast. Automated exposure control was utilized for this study. A dose lowering technique was utilized adhering to the principles of ALARA. Comparison: None. Findings: Mild mucosal thickening within the right maxillary sinus. The mastoid air cells are clear. Prior bilateral lens replacement. The calvarium and skull base are intact. There is no mass, hematoma, midline shift, acute infarct. White matter hypodensity is nonspecific but suggestive of microvascular ischemic change. The ventricles and sulci demonstrate mild age-related involutional changes. 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 Impression: No acute intracranial abnormality. Atrophy and microvascular ischemic changes. ACT 112: Negative or not required by law. Electronically signed by: Zeferino Kruger M.D. 04/19/2022 8:24 AM Code Status & VTE Plan Code Status DNR PG Care Time/CCT Total # of Minutes Spent Total Time Spent with Patient: Total time spent is greater than 50% in coordination of care (as documented) at patient's floor/unit and/or counseling patient: Coding Level of Care Code 11986 Initial Inpt Care Lvl 2 Diagnoses Unsteady gait R26.81 Urinary retention R33.9 Elevated lipase R74.8 Hypertension I10 Constipation K59.00
[2022-04-19] MEDS ORDERED: ASPIRIN 81 MG CHEW PO STA (12:02)
--- NOTE | 2022-04-19 12:02 | Emergency Department Note ---
History of Present Illness General Chief complaint: Dizziness Stated complaint: Dizziness Time Seen by Provider: 04/19/22 07:30 History of Present Illness Provider complaint: Dizziness Onset (ago): hour(s) 1 Associated symptoms: + nausea/vomiting and + weakness; no chest pain, no cough, no fever/chills, no headaches or no shortness of breath 86-year-old male presents emergency department dizziness. Patient states he woke up approximately 1 hour ago and felt like the room was spinning. Patient reports nausea and vomiting. The patient reports he felt like his hands were not working and he could not move them. The patient denies any recent falls or traumas. No blood thinners. No difficulty speaking. No numbness. No chest pain or difficulty breathing. Patient does report more blood and discoloration of his urine from his suprapubic catheter. Home Medications Medication Instructions Recorded Confirmed Type acetaminophen 325 mg tablet 650 mg PO QID PRN Pain 09/16/21 12/31/21 History (Tylenol) hydrochlorothiazide 12.5 mg capsule 12.5 mg PO DAILY 09/16/21 12/31/21 History Allergies Allergy/AdvReac Type Severity Reaction Status Date / Time No Known Drug Allergies Allergy Verified 12/31/21 09:01 pollen AdvReac Intermediate nasal Uncoded 12/31/21 09:01 congestion Past Med/Surg History Medical History Arthritis Chronic anemia Isaac catheter in place Placed 4 weeks ago d/t urinary retention Hearing deficit History of prostate cancer 1993 s/p prostatectomy (per patient, unable to cath d/t scar tissue), no chemo/XRT Hx of vertigo Hypertension Osteoarthritis Tinea corporis Surgical History H/O prostate biopsy H/O prostatectomy History of appendectomy History of cataract extraction R/L History of colonoscopy History of cystoscopy Internal Urethrotomy (DVIU) and Incision of Bladder Neck (02/28/21): MAC at [facility] History of tooth extraction History of total knee replacement Left TKA (06/08/19): SAB at L3/L4 (x1 attempt) + PNB at [facility] Hx of left inguinal hernia repair Incarcerated hernia with bowel obstruction Family History Father Prostate cancer Hypertension Mother Liver disease Brother Lung cancer Hypertension Other No family history of adverse response to anesthesia Social History Smoking Status: Former smoker Second Hand Exposure: Yes (IN THE PAST); Hx Alcohol Use: Yes Alcohol type: wine Preferred Language: Luxembourgish Communication Ability: Effective Visual Impairment: No Limitations Hearing Ability: Normal Manager Learning Required: No Beliefs That Will Affect Care: None marital status: Current Living Situation: Spouse current occupational status: retired Feels Safe at Home: Yes Assistive Devices: Denture - Upper, Denture - Lower, Glasses and Hearing Aid - Bilateral Review of Systems A total of 10 systems reviewed and were otherwise negative Physical Exam Vital Signs Vital Signs - 24 hr 04/19/22 07:42 04/19/22 07:42 04/19/22 07:42 Temperature 36.5 C Temperature Source Oral Pulse Rate 73 Pulse Rate [Apical] 71 Pulse Rhythm Regular Pulse Rhythm [Apical] Pulse Strength Normal Pulse Strength [Apical] Respiratory Rate 19 19 Respiratory Effort / Characteristics Non-Labored Non-Labored Respiratory Depth Normal Normal Respiratory Pattern Regular Regular Blood Pressure 131/85 Blood Pressure [Left Arm] 131/85 Blood Pressure Mean 100 Blood Pressure Mean [Left Arm] 100 Blood Pressure Position Lying Blood Pressure Position [Left Arm] Lying Pulse Oximetry 96 97 97 Oxygen Delivery Method Room Air Room Air Room Air Sepsis Recent Fever Within 48 Hours No Sepsis New/Unexplained Change in Mental Status No Sepsis Action Taken by Nursing No Action Required 04/19/22 10:00 Temperature Temperature Source Pulse Rate Pulse Rate [Apical] 72 Pulse Rhythm Pulse Rhythm [Apical] Regular Pulse Strength Pulse Strength [Apical] Normal Respiratory Rate 19 Respiratory Effort / Characteristics Non-Labored Respiratory Depth Normal Respiratory Pattern Regular Blood Pressure Blood Pressure [Left Arm] 131/85 Blood Pressure Mean Blood Pressure Mean [Left Arm] 100 Blood Pressure Position Blood Pressure Position [Left Arm] Lying Pulse Oximetry 99 Oxygen Delivery Method Room Air Sepsis Recent Fever Within 48 Hours Sepsis New/Unexplained Change in Mental Status Sepsis Action Taken by Nursing Physical Exam GENERAL: He is oriented to person, place, and time. He appears well-developed and well-nourished. He does not appear distressed. HENT: Exam performed. - Head: Normocephalic and atraumatic. - Right Ear: External ear normal. No mastoid tenderness. - Left Ear: External ear normal. No mastoid tenderness. - Mouth/Throat: The oropharynx is clear and moist. No trismus in the jaw. No dental abscesses or uvula swelling. No oropharyngeal exudate or tonsillar abscesses. EYES: Conjunctivae and EOM are normal. Pupils are equal, round, and reactive to light. Right eye exhibits no discharge. Left eye exhibits no discharge. No scleral icterus. NECK: Normal range of motion. Neck supple. No JVD present. No spinous process tenderness present. No carotid bruit present. No rigidity. No tracheal deviation and normal range of motion present. No Brudzinski's sign and no Kernig's sign noted. CV: Normal rate, regular rhythm, normal heart sounds and intact distal pulses. There is no peripheral edema. Palpable radial pulses bue. PULM/CHEST: Effort normal and breath sounds normal. No respiratory distress. No stridor. He has no wheezes. He has no rales. - Chest Wall: He exhibits no tenderness. ABD: The abdomen is soft. Bowel sounds are normal. He has no distension. No mass is present. There is tenderness to palpation of the left lower quadrant. There is no rebound, no guarding, no Muñoz's sign and no tenderness at McBurney's point. Rovsig negative. Suprapubic catheter present. MUSC/SKEL: Normal range of motion. There is no peripheral edema, tenderness or deformity. LYMPH: No cervical adenopathy. NEURO: He is alert and oriented to person, place, and time. He has normal strength. No cranial nerve deficit or sensory deficit. GCS eye subscore is 4. GCS verbal subscore is 5. GCS motor subscore is 6. NIHSS: 0 cerebellar tests wnl. SKIN: Skin is warm and dry. He is not diaphoretic. PSYCH: He has a normal mood and affect. Behavior is normal. Judgment and thought content normal. Course Course 07: The patient was evaluated in room B7. A complete history and physical exam was performed Cardiac monitoring: An order was placed for continuous cardiac monitoring. The monitor shows a rate of 70 with sinus rhythm Patient's symptoms have completely resolved. NIHSS 0. No code stroke called at this time. 0915: Vital signs stable. Patient CT of the head was within normal limits. CT of the abdomen was conducted which showed some possible inflammation of the pancreas. Serum lipase was added to the blood work that was sent down on the patient. Patient's lipase is 160. Thought that the patient could be suffering from pancreatitis given the CT findings as well as elevated lipase. There is also thought that the patient had a TIA given his neurologic symptoms have returned to baseline he has no upper extremity weakness at this time. Patient states his dizziness is improved. Discussed with patient and family members, [facility]. Administered Medications Sodium Chloride (Nss 1000ml) 1,000 mls @ 125 mls/hr IV .Q8H CARLOS Stop: 05/19/22 09:29 Last Admin: 04/19/22 10:32 Dose: 125 mls/hr Documented By: JUANITA Medical Decision Making Laboratory Data Result diagrams: 04/19/22 07:50 04/19/22 07:50 Lab Results 04/19/22 04/19/22 04/19/22 Range/Units 07:50 07:50 07:50 WBC 5.68 (4.8-10.8) K/ul RBC 3.86 L (4.63-6.08) M/uL Hgb 11.8 L (14.0-18.0) g/dl Hct 34.1 L (40.1-51.0) % MCV 88.3 (80.0-100.0) fL MCH 30.6 (25.0-34.0) pg MCHC 34.6 (32.0-36.0) g/dL RDW Std Deviation 40.1 (36.4-46.3) fL RDW Coeff of Latasha 12.5 (11.5-14.5) % Plt Count 274 (130-400) K/uL MPV 10.6 (9.4-12.4) fL Immature Gran % (Auto) 0.7 % Neut % (Auto) 41.2 % Lymph % (Auto) 28.5 % Perry % (Auto) 20.6 % Eos % (Auto) 8.5 % Baso % (Auto) 0.5 % Neut # (Auto) 2.34 (1.4-6.5) K/uL Lymph # (Auto) 1.62 (1.2-3.4) K/uL Perry # (Auto) 1.17 H (0.24-0.82) K/uL Eos # (Auto) 0.48 (0-0.50) K/uL Baso # (Auto) 0.03 (0-0.2) K/uL Immature Gran # (Auto) 0.04 H (0.00-0.02) K/uL Sodium 135 L (136-145) mmol/L Potassium 3.6 (3.5-5.1) mmol/L Chloride 101 (98-107) mmol/L Carbon Dioxide 27 (21-32) mmol/L Anion Gap 7 (3-11) BUN 13 (6-23) mg/dl Creatinine 0.78 (0.6-1.4) mg/dl Est Cr Clr Drug Dosing 55.9 ml/min Est GFR ( Amer) 94.1 ml/min Est GFR (Non-Af Amer) 81.2 ml/min BUN/Creatinine Ratio 16.7 (10-20) Glucose 132 H (70-99(Fasting)) mg/dl Calcium 9.0 (8.5-10.1) mg/dl Lipase 160 H (11-82) U/L Urine Color Urine Appearance (Clear) Urine pH (4.5-7.5) Ur Specific Rudyard (1.000-1.030) Urine Protein (Negative) Urine Glucose (UA) (Negative) Urine Ketones (Negative) Urine Blood (Negative) Urine Nitrite (Negative) Urine Bilirubin (Negative) Urine Urobilinogen (Negative) Ur Leukocyte Esterase (Negative) Urine WBC (Auto) (0-5) /hpf Urine RBC (Auto) (0-4) /hpf U Hyaline Cast (Auto) (0-5) /lpf U Epithel Cells (Auto) (0-5) /lpf Urine Bacteria (Auto) (Negative) Triple Phos Crystals (None Prsent) SARS-CoV-2, RNA, NAAT (NEGATIVE) 04/19/22 04/19/22 Range/Units 08:38 09:25 WBC (4.8-10.8) K/ul RBC (4.63-6.08) M/uL Hgb (14.0-18.0) g/dl Hct (40.1-51.0) % MCV (80.0-100.0) fL MCH (25.0-34.0) pg MCHC (32.0-36.0) g/dL RDW Std Deviation (36.4-46.3) fL RDW Coeff of Latasha (11.5-14.5) % Plt Count (130-400) K/uL MPV (9.4-12.4) fL Immature Gran % (Auto) % Neut % (Auto) % Lymph % (Auto) % Perry % (Auto) % Eos % (Auto) % Baso % (Auto) % Neut # (Auto) (1.4-6.5) K/uL Lymph # (Auto) (1.2-3.4) K/uL Perry # (Auto) (0.24-0.82) K/uL Eos # (Auto) (0-0.50) K/uL Baso # (Auto) (0-0.2) K/uL Immature Gran # (Auto) (0.00-0.02) K/uL Sodium (136-145) mmol/L Potassium (3.5-5.1) mmol/L Chloride (98-107) mmol/L Carbon Dioxide (21-32) mmol/L Anion Gap (3-11) BUN (6-23) mg/dl Creatinine (0.6-1.4) mg/dl Est Cr Clr Drug Dosing ml/min Est GFR ( Amer) ml/min Est GFR (Non-Af Amer) ml/min BUN/Creatinine Ratio (10-20) Glucose (70-99(Fasting)) mg/dl Calcium (8.5-10.1) mg/dl Lipase (11-82) U/L Urine Color Yellow Urine Appearance Cloudy A (Clear) Urine pH 8.0 H (4.5-7.5) Ur Specific Rudyard 1.016 (1.000-1.030) Urine Protein 1+ H (Negative) Urine Glucose (UA) Negative (Negative) Urine Ketones Negative (Negative) Urine Blood Negative (Negative) Urine Nitrite Positive A (Negative) Urine Bilirubin Negative (Negative) Urine Urobilinogen Negative (Negative) Ur Leukocyte Esterase 2+ H (Negative) Urine WBC (Auto) >30 H (0-5) /hpf Urine RBC (Auto) 0-4 (0-4) /hpf U Hyaline Cast (Auto) 1-5 (0-5) /lpf U Epithel Cells (Auto) 5-10 H (0-5) /lpf Urine Bacteria (Auto) 2+ H (Negative) Triple Phos Crystals Present A (None Prsent) SARS-CoV-2, RNA, NAAT NEGATIVE (NEGATIVE) Imaging Data Radiologist's Impression: Abdomen/Pelvis CT 04/19/22 07:47 CT SCAN OF THE ABDOMEN AND PELVIS WITHOUT IV CONTRAST CLINICAL HISTORY: Left lower quadrant abdominal pain. COMPARISON STUDY: Abdominal CT dated 02/19/2021. TECHNIQUE: CT scan of the abdomen and pelvis is performed from the lung bases to the proximal femora. Images are reviewed in the axial, sagittal, and coronal planes. IV contrast was not administered for this examination. Note that the examination was performed in suboptimal fashion without oral and IV contrast. A dose lowering technique was utilized adhering to the principles of ALARA. CT DOSE: 963.90 mGy.cm FINDINGS: Lung bases: The heart is mildly enlarged and without pericardial effusion. The coronary arteries are densely calcified. Emphysematous change is suspected. There is bibasilar scarring/atelectasis. The lung bases are otherwise clear. There is a tiny hiatal hernia. Liver: The unenhanced liver is normal in size, contour, and attenuation. There is no intrahepatic biliary ductal dilatation. Gallbladder: The gallbladder is distended but otherwise normal as imaged. Spleen: Normal in size and attenuation. Pancreas: The unenhanced pancreas is atrophic. There is peripancreatic infiltration. No perihepatic fluid collection is identified. Adrenal glands: Unremarkable. Kidneys: The unenhanced kidneys demonstrate mild cortical atrophy and are without hydronephrosis. There are no renal calculi identified. There is no evidence of contour deforming renal mass lesion. Abdominal vasculature: The abdominal aorta is normal in course and caliber not ing advanced atherosclerotic calcification. Bowel: There is advanced colonic diverticulosis without CT evidence of acute diverticulitis. Moderate fecal retention is noted throughout the colon. The appendix is not identified and reported surgically absent. There are numerous pericolonic lymph nodes adjacent to the sigmoid which measure up to 9 mm. Peritoneum: There is no intraperitoneal free air or abdominal ascites. There is a fat-containing umbilical hernia. Lymphadenopathy: None. Pelvic viscera: The bladder is decompressed around a suprapubic catheter and not well evaluated. The prostate gland is surgically absent. Surgical clips are seen throughout the pelvis. Skeletal structures: The skeletal structures are osteopenic. There is mild number sacral spondylosis. No lytic or blastic lesions are seen. IMPRESSION: 1. 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 Correlate with c linical findings and serum amylase/lipase levels for evidence of acute pancreatitis. 2. Advanced colonic diverticulosis without CT evidence of acute diverticulitis. 3. Moderate constipation. 4. There are numerous mildly enlarged pericolonic lymph nodes above the sigmoid. These are pathologically indeterminant but new as compared to 02/19/2021. These may be reactive. If warranted, a colonoscopy could be considered for assessment of the underlying colon. Also consider correlation with serum PSA levels given the pelvic location and history of prostatectomy. 5. A suprapubic bladder catheter is in place. 6. Additional findings as above. ACT 112: Negative or not required by law. Electronically signed by: Matthieu Villa M.D. 04/19/2022 8:[address] 04/19/22 07:[address] DOSE: HISTORY: dizziness TECHNIQUE: Multiaxial CT images of the head were performed without the use of intravenous contrast. Automated exposure control was utilized for this study. A dose lowering technique was utilized adhering to the principles of ALARA. Comparison: None. Findings: Mild mucosal thickening within the right maxillary sinus. The mastoid air cells are clear. Prior bilateral lens replacement. The calvarium and skull base are intact. There is no mass, hematoma, midline shift, acute infarct. White matter hypodensity is nonspecific but suggestive of microvascular ischemic change. The ventricles and sulci demonstrate mild age-related involutional changes. 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 Impression: No acute intracranial abnormality. Atrophy and microvascular ischemic changes. ACT 112: Negative or not required by law. Electronically signed by: Zeferino Kruger M.D. 04/19/2022 8:24 AM ECG Data Indication: + abdominal pain and + weakness Rate (beats per minute): 71 Rhythm: + normal sinus ECG Intervals/blocks: + Normal QRS, + Normal MS and + Normal QT-c ECG ST segments: + Normal ST segments MDM Narrative 0730: The patient was evaluated in room B7. A complete history and physical exam was performed Cardiac monitoring: An order was placed for continuous cardiac monitoring. The monitor shows a rate of 70 with sinus rhythm Patient's symptoms have completely resolved. NIHSS 0. No code stroke called at this time. 0915: Vital signs stable. Patient CT of the head was within normal limits. CT of the abdomen was conducted which showed some possible inflammation of the pancreas. Serum lipase was added to the blood work that was sent down on the patient. Patient's lipase is 160. Thought that the patient could be suffering from pancreatitis given the CT findings as well as elevated lipase. There is also thought that the patient had a TIA given his neurologic symptoms have returned to baseline he has no upper extremity weakness at this time. Patient states his dizziness is improved. Discussed with patient and family members, the patient will be brought into the [facility] hospitalist team for further evaluation for TIA and pancreatitis. [facility]. Impression & Plan TIA (transient ischemic attack), Acute pancreatitis Discharge Plan Visit Data Chief Complaint: Dizziness Stated Complaint: Dizziness ED Provider: Diego Muñoz Discharge Problem: TIA (transient ischemic attack), Acute pancreatitis Patient Disposition: Being Evaluated by Hospitalist Forms Stand Alone Forms: [facility] Prescriptions Prescriptions: No Action acetaminophen [Tylenol] 325 mg Tablet 650 mg PO QID PRN (Reason: Pain) hydrochlorothiazide 12.5 mg capsule 12.5 mg PO DAILY Referrals Referrals: Avni Verdin DO [Primary Care Provider] - : Acute pancreatitis Qualifiers: Pancreatitis type: unspecified pancreatitis type Acute pancreatitis complicati on: unspecified Qualified Code(s): K85.90 - Acute pancreatitis without necrosis or infection, unspecified
[2022-04-19] MEDS ORDERED: ASPIRIN 81 MG ECTAB PO SCH (13:57)
[2022-04-19] MEDS ORDERED: MAGNESIUM HYDROXIDE SUSP 30 ML UDC PO ONE (13:57)
--- NOTE | 2022-04-19 15:06 | Magnetic Resonance Report ---
MRI OF THE BRAIN WITHOUT IV CONTRAST CLINICAL HISTORY: Upper extremity weakness. Gait instability. COMPARISON STUDY: CT of the brain performed the same day 04/19/2022. TECHNIQUE: MRI of the brain was performed utilizing various T1 and T2-weighted sequences in the axial , sagittal, and coronal planes. IV contrast was not administered for this examination. FINDINGS: Brain parenchyma: There is age-related involutional change noting moderate subcortical and periventri cular microangiopathic disease. There is no hemorrhage or mass effect. There is no restricted diffusi on to suggest acute ischemia. There are tiny chronic lacunar infarcts within both cerebellar hemisphe res, as well as the left thalamus and left basal ganglia. Seymour-white matter differentiation is preser fransisco. No extra-axial fluid collection is seen. The cerebellar tonsils are normal in configuration. Ventricles, sulci, and cisterns: Prominent secondary to involutional change. Pituitary and sella: Unremarkable. Intracranial vasculature: Normal flow voids are maintained at the skull base. There is dolichoectasia of the basilar artery. Orbits: The bony orbits are grossly intact. Orbital contents are normal in appearance noting bilatera l ocular lens implants. Sinuses and mastoids: Mild mucosal thickening is noted within the right maxillary antrum and the ethm oid sinuses. The mastoid air cells are clear. Calvarium: Unremarkable. Cervical cord: Partially visualized cervical spinal cord is normal in morphology and signal intensity . IMPRESSION: No acute intracranial abnormality. ACT 112: Negative or not required by law. Electronically signed by: Matthieu Villa M.D. 04/19/2022 3:03 PM
[2022-04-19] MEDS: LACTATED RINGER'S 1,000 ML IV SCH (15:32)
[2022-04-19] MEDS ORDERED: bisacodyL 10 MG SUPP PR STA (18:24)
--- NOTE | 2022-04-19 18:31 | Neurology Consultation ---
Date of Consultation April 19, 2022 Assessment & Plan (1) Vertigo: Impression: The patient had short lasting really vertigo this morning, with additional nausea, vomiting, unsteady gait, and altered coordination of upper extremities, which resolved in 15 to 20 minutes, without additional neurological symptoms. Underlying etiology is unclear at this time. Posterior circulation TIA and short lasting canalith detachment are in differential. Plan: CT angiography of head and neck to assess primarily posterior circulation. We will start patient on aspirin 81 mg daily. We will reassess the patient if the patient experienced similar symptoms. Thank you for the consultation. History of Present Illness Reason for Consultation: Vertigo Requesting Physician: Maria Ines Wilkinson MD Attending Physician: Maria Ines Wilkinson MD History of Present Illness The patient is a 86-year-old pleasant gentleman, who woke up this morning and went to the bathroom. After emptying urostomy bag, he felt pubic pain, then suddenly felt vertiginous, which was described as room spinning. He was hardly walking with unsteadiness, had nausea and vomiting. He was having difficulty using hands but some coordination problems. After laying down and resting, symptoms resolved gradually in 15 minutes. He has not noticed any additional neurological symptoms including facial asymmetry, speech disturbance, sensory or motor dysfunction. He has no history of stroke symptoms. In the past, he had 1 similar occasion, which was considered to be related to dehydration. In emergency department, the patient was back to his baseline. He was admitted for further evaluation. Urinalysis showed questionable findings for urinary tract infection. Brain MRI was negative for acute pathology. Telemetry monitoring has been showing sinus rhythm. Other laboratory work-up did not show abnormality to explain the patient's symptoms. The patient is currently symptom-free, eats well without nausea. He can ambulate independently without any difficulty. I have reviewed the patient's chart including imaging studies and visualized them personally. I have discussed the case with the patient and hospitalist physician. Allergies Allergy/AdvReac Type Severity Reaction Status Date / Time No Known Drug Allergies Allergy NKDA Verified 04/19/22 15:26 pollen AdvReac Intermediate nasal Uncoded 04/19/22 15:26 congestion Home Medications Medication Instructions Recorded Confirmed Type acetaminophen 325 mg tablet 650 mg PO QID PRN Pain 09/16/21 04/19/22 History (Tylenol) hydrochlorothiazide 12.5 mg capsule 12.5 mg PO DAILY 09/16/21 04/19/22 History cranberry 400 mg capsule 0 mg PO DAILY PRN .. 04/19/22 04/19/22 History diphenhydramine 25 1 tab PO HS PRN Sleep 04/19/22 04/19/22 History mg-acetaminophen 500 mg tablet (Tylenol PM Extra Strength) Patient History Medical History Arthritis Chronic anemia Isaac catheter in place Placed 4 weeks ago d/t urinary retention Hearing deficit History of prostate cancer 1993 s/p prostatectomy (per patient, unable to cath d/t scar tissue), no chemo/XRT Hx of vertigo Hypertension Osteoarthritis Tinea corporis Surgical History H/O prostate biopsy H/O prostatectomy History of appendectomy History of cataract extraction R/L History of colonoscopy History of cystoscopy Internal Urethrotomy (DVIU) and Incision of Bladder Neck (02/28/21): MAC at [facility] History of tooth extraction History of total knee replacement Left TKA (06/08/19): SAB at L3/L4 (x1 attempt) + PNB at [facility] Hx of left inguinal hernia repair Incarcerated hernia with bowel obstruction Family History Father Prostate cancer Hypertension Mother Liver disease Brother Lung cancer Hypertension Other No family history of adverse response to anesthesia Social History Smoking Status: Former smoker Second Hand Exposure: Yes (IN THE PAST); Hx Alcohol Use: Yes Alcohol type: wine Preferred Language: Portuguese Communication Ability: Impaired Visual Impairment: No Limitations Hearing Ability: Normal 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 HENT: Normal exam with inspection. Wearing hearing aids. CV: Hearth rhtyhm is regular. Neck: Supple, no carotid bruits. Lungs: Non-labored and comfortable breathing. Abdomen: Soft, non-tender, non-distended. Some suprapubic discomfort with palpation. Skin: No rash or ecchymosis. Extremities: No edema or cyanosis NEUROLOGICAL EXAMINATION: Mental Status: Alert and oriented to place, person and time. Cranial Nerves: II-XII are intact except bilateral SNHI. No nystagmus. Funduscopy: Normal looking optic discs. Motor: 5/5 in all extremities without asymmetry. Tone: Normal without spasticity or rigidity. Sensory: Intact grossly. Coordination: No dysmetria with FTN testing. Speech: Fluent. Comprehension is intact. Gait: Normal. No ataxia or abnormal walking pattern. Musculoskeletal: Normal muscle bulk, no atrophy. Luis-Hallpike: Negative bilaterally. Results & Data ([facility]) Vital Signs (Past 12 Hours) Vital Signs Temp Pulse Pulse Resp BP BP Pulse Ox 04/19/22 16:42 36.6 C 84 18 142/80 H 94 04/19/22 15:00 76 19 134/85 97 04/19/22 15:36 74 19 134/85 97 04/19/22 15:36 04/19/22 13:02 69 18 160/80 H 99 04/19/22 10:00 72 19 131/85 99 04/19/22 07:42 97 04/19/22 07:42 71 19 131/85 97 04/19/22 07:42 36.5 C 73 19 131/85 96 Pulse Ox O2 Del Method O2 Del Method 04/19/22 16:42 Room Air 04/19/22 15:00 Room Air 04/19/22 15:36 Room Air 04/19/22 15:36 97 Room Air 04/19/22 13:02 Room Air 04/19/22 10:00 Room Air 04/19/22 07:42 Room Air 04/19/22 07:42 Room Air 04/19/22 07:42 Room Air Laboratory Results Laboratory Results - last 24 hr 04/19/22 04/19/22 04/19/22 07:50 07:50 07:50 WBC 5.68 RBC 3.86 L Hgb 11.8 L Hct 34.1 L MCV 88.3 MCH 30.6 MCHC 34.6 RDW Std Deviation 40.1 RDW Coeff of Latasha 12.5 Plt Count 274 MPV 10.6 Immature Gran % (Auto) 0.7 Neut % (Auto) 41.2 Lymph % (Auto) 28.5 Wirt % (Auto) 20.6 Eos % (Auto) 8.5 Baso % (Auto) 0.5 Neut # (Auto) 2.34 Lymph # (Auto) 1.62 Wirt # (Auto) 1.17 H Eos # (Auto) 0.48 Baso # (Auto) 0.03 Immature Gran # (Auto) 0.04 H Sodium 135 L Potassium 3.6 Chloride 101 Carbon Dioxide 27 Anion Gap 7 BUN 13 Creatinine 0.78 Est Cr Clr Drug Dosing 55.9 Est GFR ( Amer) 94.1 Est GFR (Non-Af Amer) 81.2 BUN/Creatinine Ratio 16.7 Glucose 132 H Calcium 9.0 Lipase 160 H Procalcitonin Urine Color Urine Appearance Urine pH Ur Specific [place] Urine Protein Urine Glucose (UA) Urine Ketones Urine Blood Urine Nitrite Urine Bilirubin Urine Urobilinogen Ur Leukocyte Esterase Urine WBC (Auto) Urine RBC (Auto) U Hyaline Cast (Auto) U Epithel Cells (Auto) Urine Bacteria (Auto) Triple Phos Crystals SARS-CoV-2, RNA, NAAT 04/19/22 04/19/22 04/19/22 08:20 08:38 09:25 WBC RBC Hgb Hct MCV MCH MCHC RDW Std Deviation RDW Coeff of Latasha Plt Count MPV Immature Gran % (Auto) Neut % (Auto) Lymph % (Auto) Wirt % (Auto) Eos % (Auto) Baso % (Auto) Neut # (Auto) Lymph # (Auto) Wirt # (Auto) Eos # (Auto) Baso # (Auto) Immature Gran # (Auto) Sodium Potassium Chloride Carbon Dioxide Anion Gap BUN Creatinine Est Cr Clr Drug Dosing Est GFR ( Amer) Est GFR (Non-Af Amer) BUN/Creatinine Ratio Glucose Calcium Lipase Procalcitonin < 0.05 Urine Color Yellow Urine Appearance Cloudy A Urine pH 8.0 H Ur Specific [place] 1.016 Urine Protein 1+ H Urine Glucose (UA) Negative Urine Ketones Negative Urine Blood Negative Urine Nitrite Positive A Urine Bilirubin Negative Urine Urobilinogen Negative Ur Leukocyte Esterase 2+ H Urine WBC (Auto) >30 H Urine RBC (Auto) 0-4 U Hyaline Cast (Auto) 1-5 U Epithel Cells (Auto) 5-10 H Urine Bacteria (Auto) 2+ H Triple Phos Crystals Present A SARS-CoV-2, RNA, NAAT NEGATIVE Diagnostic Findings Abdomen/Pelvis CT 04/19/22 07:47 CT SCAN OF THE ABDOMEN AND PELVIS WITHOUT IV CONTRAST CLINICAL HISTORY: Left lower quadrant abdominal pain. COMPARISON STUDY: Abdominal CT dated 02/19/2021. TECHNIQUE: CT scan of the abdomen and pelvis is performed from the lung bases to the proximal femora. Images are reviewed in the axial, sagittal, and coronal planes. IV contrast was not administered for this examination. Note that the examination was performed in suboptimal fashion without oral and IV contrast. A dose lowering technique was utilized adhering to the principles of ALARA. CT DOSE: 963.90 mGy.cm FINDINGS: Lung bases: The heart is mildly enlarged and without pericardial effusion. The coronary arteries are densely calcified. Emphysematous change is suspected. There is bibasilar scarring/atelectasis. The lung bases are otherwise clear. There is a tiny hiatal hernia. Liver: The unenhanced liver is normal in size, contour, and attenuation. There is no intrahepatic biliary ductal dilatation. Gallbladder: The gallbladder is distended but otherwise normal as imaged. Spleen: Normal in size and attenuation. Pancreas: The unenhanced pancreas is atrophic. There is peripancreatic infiltration. No perihepatic fluid collection is identified. Adrenal glands: Unremarkable. Kidneys: The unenhanced kidneys demonstrate mild cortical atrophy and are without hydronephrosis. There are no renal calculi identified. There is no evidence of contour deforming renal mass lesion. Abdominal vasculature: The abdominal aorta is normal in course and caliber noting advanced atherosclerotic calcification. Bowel: There is advanced colonic diverticulosis without CT evidence of acute diverticulitis. Moderate fecal retention is noted throughout the colon. The appendix is not identified and reported surgically absent. There are numerous pericolonic lymph nodes adjacent to the sigmoid which measure up to 9 mm. Peritoneum: There is no intraperitoneal free air or abdominal ascites. There is a fat-containing umbilical hernia. Lymphadenopathy: None. Pelvic viscera: The bladder is decompressed around a suprapubic catheter and not well evaluated. The prostate gland is surgically absent. Surgical clips are seen throughout the pelvis. Skeletal structures: The skeletal structures are osteopenic. There is mild number sacral spondylosis. No lytic or blastic lesions are seen. IMPRESSION: 1. 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 Correlate with clinical findings and serum amylase/lipase levels for evidence of acute pancreatitis. 2. Advanced colonic diverticulosis without CT evidence of acute diverticulitis. 3. Moderate constipation. 4. There are numerous mildly enlarged pericolonic lymph nodes above the sigmoid. These are pathologically indeterminant but new as compared to 02/19/2021. These may be reactive. If warranted, a colonoscopy could be considered for assessment of the underlying colon. Also consider correlation with serum PSA levels given the pelvic location and history of prostatectomy. 5. A suprapubic bladder catheter is in place. 6. Additional findings as above. ACT 112: Negative or not required by law. Electronically signed by: Matthieu Villa M.D. 04/19/2022 8:[address] 04/19/22 07:[address] DOSE: HISTORY: dizziness TECHNIQUE: Multiaxial CT images of the head were performed without the use of intravenous contrast. Automated exposure control was utilized for this study. A dose lowering technique was utilized adhering to the principles of ALARA. Comparison: None. Findings: Mild mucosal thickening within the right maxillary sinus. The mastoid air cells are clear. Prior bilateral lens replacement. The calvarium and skull base are intact. There is no mass, hematoma, midline shift, acute infarct. White matter hypodensity is nonspecific but suggestive of microvascular ischemic change. The ventricles and sulci demonstrate mild age-related involutional changes. 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 Impression: No acute intracranial abnormality. Atrophy and microvascular ischemic changes. ACT 112: Negative or not required by law. Electronically signed by: Zeferino Kruger M.D. 04/19/2022 8:24 AM Brain MRI 04/19/22 13:57 MRI OF THE BRAIN WITHOUT IV CONTRAST CLINICAL HISTORY: Upper extremity weakness. Gait instability. COMPARISON STUDY: CT of the brain performed the same day 04/19/2022. TECHNIQUE: MRI of the brain was performed utilizing various T1 and T2-weighted sequences in the axial, sagittal, and coronal planes. IV contrast was not administered for this examination. FINDINGS: Brain parenchyma: There is age-related involutional change noting moderate subcortical and periventricular microangiopathic disease. There is no hemorrhage or mass effect. There is no restricted diffusion to suggest acute ischemia. There are tiny chronic lacunar infarcts within both cerebellar hemispheres, as well as the left thalamus and left basal ganglia. Seymour-white matter differentiation is preserved. No extra-axial fluid collection is seen. The cerebellar tonsils are normal in configuration. Ventricles, sulci, and cisterns: Prominent secondary to involutional change. Pituitary and sella: Unremarkable. Intracranial vasculature: Normal flow voids are maintained at the skull base. There is dolichoectasia of the basilar artery. Orbits: The bony orbits are grossly intact. Orbital contents are normal in appea kaylen noting bilateral ocular lens implants. Sinuses and mastoids: Mild mucosal thickening is noted within the right maxillary antrum and the ethmoid sinuses. The mastoid air cells are clear. Calvarium: Unremarkable. Cervical cord: Partially visualized cervical spinal cord is normal in morphology and signal intensity. IMPRESSION: No acute intracranial abnormality. ACT 112: Negative or not required by law. Electronically signed by: Matthieu Villa M.D. 04/19/2022 3:03 PM
[2022-04-19] MEDS ORDERED: bisacodyL 5 MG TABEC PO ONE (18:38)
[2022-04-19] MEDS: MELATONIN 3 MG TAB PO PRN (21:21)
[2022-04-19] MEDS: ACETAMINOPHEN 325 MG TAB PO PRN (21:21)
[2022-04-20] MEDS: LACTATED RINGER'S 1,000 ML IV SCH (02:45)
--- NOTE | 2022-04-20 07:22 | Electrocardiogram Report ---
Test Reason : Blood Pressure : / mmHG Vent. Rate : 071 BPM Atrial Rate : 071 BPM P-R Int : 194 ms QRS Dur : 094 ms QT Int : 428 ms P-R-T Axes : 042 -10 049 degrees QTc Int : 465 ms Poor data quality, interpretation may be adversely affected Normal sinus rhythm Incomplete right bundle branch block Cannot rule out Anterior infarct , age undetermined Abnormal ECG When compared with ECG of 25-FEB-2021 14:56, Questionable change in QRS axis Confirmed by Rafael Belcher ([id number]) on 04/20/2022 7:22:05 AM Referred By: REFERRED SELF Confirmed By:Rafael Belcher
[2022-04-20 07:33] LABS: Basophils # (auto) 0.03 K/uL (0-0.2); Basophils % (auto) 0.7 %; Eosinophils # (auto) 0.38 K/uL (0-0.50); Eosinophils % (auto) 8.2 %; Hemoglobin 10.5 g/dl (14.0-18.0); Immature Granulocytes # (auto) 0.04 K/uL (0.00-0.02); Immature Granulocytes % (auto) 0.9 %; Lymphocytes # (auto) 1.14 K/uL (1.2-3.4); Lymphocytes % (auto) 24.7 %; Mean Corpuscular Hemoglobin 30.3 pg (25.0-34.0); Mean Corpuscular Hgb Conc 33.9 g/dL (32.0-36.0); Mean Corpuscular Volume 89.6 fL (80.0-100.0); Mean Platelet Volume 10.7 fL (9.4-12.4); Monocytes # (auto) 1.05 K/uL (0.24-0.82); Monocytes % (auto) 22.8 %; Neutrophils # (auto) 1.97 K/uL (1.4-6.5); Neutrophils % (auto) 42.7 %; Platelet Count 243 K/uL (130-400); RDW Coefficient of Variation 12.5 % (11.5-14.5); RDW Standard Deviation 40.8 fL (36.4-46.3); Red Blood Count 3.46 M/uL (4.63-6.08); White Blood Count 4.61 K/ul (4.8-10.8)
[2022-04-20] MEDS: ASPIRIN 81 MG ECTAB PO SCH (07:39)
[2022-04-20 07:52] LABS: Albumin Globulin Ratio 1.4 (0.9-2); Albumin Level 3.4 gm/dl (3.4-5.0); Bilirubin,Total 0.6 mg/dl (0.2-1.0); Calcium 8.4 mg/dl (8.5-10.1); Chol HDL Ratio 3.8 (0-5); Creatinine Clr Calc Pharmacy 59.7 ml/min; Est GFR (African American) 96.7 ml/min; Est GFR (Non-African American) 83.4 ml/min; Globulin 2.4 gm/dl (2.5-4.0); Phosphorus 2.3 mg/dl (2.5-4.9); Potassium 3.9 mmol/L (3.5-5.1); Total Protein 5.8 gm/dl (6.0-8.3)
--- NOTE | 2022-04-20 08:38 | Urology Consultation ---
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 Admitted for dizziness and unsteady gait and reported some bleeding at the SP tube site and discomfort. No acute urologic intervention needed SP tube site is clean without any bleeding today. It is not uncommon for some of the granulation tissue to intermittently bleed from this area. There was significant tension on his SP tube and so I instructed him and also recommend that they move up his leg bag so there is less tension. Patient can apply Vaseline around the insertion site for increased comfort Unless there is significant concerns for infection causing his issues, do not recommend treating for UTI as patient is chronically colonized. He has follow-up scheduled with urology. We can keep this as previously scheduled. Urology to sign off. History of Present Illness Reason for Consultation: Hematuria from SP tube Attending Physician: Maria Ines Wilkinson MD History of Present Illness 86-year-old male with a history of prostate cancer and bladder neck contractures who currently is managed with an SP tube. He presented to the emergency department yesterday due to unsteady gait. He had had some bleeding around his suprapubic catheter so urology was consulted. Reviewed labs from today. White blood cell count is 4.6, hemoglobin is 10.5, creatinine is 0.73 which is his baseline. Urine culture finalized mixed mitchell, which is not unexpected this patient is colonized from chronic SP tube. I independently reviewed an abdominal and pelvic CT scan from 04/19/2022 which shows a decompressed bladder with an appropriate position SP tube. Patient reports feeling better since admission with regards to dizziness and unsteady gait. He reports that he has had some soreness at the SP tube site and some bleeding. It has resolved since admission. Allergies Allergy/AdvReac Type Severity Reaction Status Date / Time No Known Drug Allergies Allergy NKDA Verified 04/19/22 15:26 pollen AdvReac Intermediate nasal Uncoded 04/19/22 15:26 congestion Home Medications Medication Instructions Recorded Confirmed Type acetaminophen 325 mg tablet 650 mg PO QID PRN Pain 09/16/21 04/19/22 History (Tylenol) hydrochlorothiazide 12.5 mg capsule 12.5 mg PO DAILY 09/16/21 04/19/22 History cranberry 400 mg capsule 0 mg PO DAILY PRN .. 04/19/22 04/19/22 History diphenhydramine 25 1 tab PO HS PRN Sleep 04/19/22 04/19/22 History mg-acetaminophen 500 mg tablet (Tylenol PM Extra Strength) Patient History Medical History Arthritis Chronic anemia Isaac catheter in place Placed 4 weeks ago d/t urinary retention Hearing deficit History of prostate cancer 1993 s/p prostatectomy (per patient, unable to cath d/t scar tissue), no chemo/XRT Hx of vertigo Hypertension Osteoarthritis Tinea corporis Surgical History H/O prostate biopsy H/O prostatectomy History of appendectomy History of cataract extraction R/L History of colonoscopy History of cystoscopy Internal Urethrotomy (DVIU) and Incision of Bladder Neck (02/28/21): MAC at [facility] History of tooth extraction History of total knee replacement Left TKA (06/08/19): SAB at L3/L4 (x1 attempt) + PNB at [facility] Hx of left inguinal hernia repair Incarcerated hernia with bowel obstruction Family History Father Prostate cancer Hypertension Mother Liver disease Brother Lung cancer Hypertension Other No family history of adverse response to anesthesia Social History Smoking Status: Former smoker Second Hand Exposure: Yes (IN THE PAST); Hx Alcohol Use: Yes Alcohol type: wine Preferred Language: Kyrgyz Communication Ability: Impaired Visual Impairment: No Limitations Hearing Ability: Normal Welt Sewer Required: No Beliefs That Will Affect Care: None marital status: Current Living Situation: Spouse current occupational status: retired Feels Safe at Home: Yes Assistive Devices: Denture - Upper, Denture - Lower, Glasses and Hearing Aid - Bilateral Review of Systems Review of Systems: 14 point review of systems negative outside of what is listed above in HPI Physical Exam Physical Exam: General: Alert and oriented, no acute distress HEENT: Normocephalic, mucous membranes moist Pulmonary: Nonlabored respirations Abdomen: Nondistended : SP tube in lower abdomen, site clean dry and intact with no bleeding. Draining clear yellow urine. There is tension on the SP tube which is likely causing his discomfort.. Extremities: Moves all 4 spontaneously Neuro: No gross deficits Skin: Warm, dry, no rashes noted Results & Data ([facility]) Vital Signs (Past 12 Hours) Vital Signs Temp Pulse Pulse Resp BP Pulse Ox O2 Del Method 04/20/22 07:38 36.7 C 68 18 137/78 96 Room Air 04/20/22 04:53 36.8 C 67 18 130/75 97 Room Air 04/19/22 22:22 64 04/19/22 23:28 36.8 C 62 20 116/64 97 Room Air PG Care Time/CCT Total # of Minutes Spent Total Time Spent with Patient: Total time spent is greater than 50% in coordination of care (as documented) at patient's floor/unit and/or counseling patient: Coding Level of Care Code 02030 Initial Inpt Care Lvl 2 Diagnoses Bladder neck contracture N32.0 Urinary retention R33.9 Prostate cancer C61
[2022-04-20 11:52] LABS: A calco-baum cmplx NotReported Not Detected (NotDetected); Bact fragilis Not Reported Not Detected (NotDetected); C auris Not Reported Not Detected (NotDetected); Calbicans Not Reported Not Detected (NotDetected); Candida glabrata Not Reported Not Detected (NotDetected); Candida krusei Not Reported Not Detected (NotDetected); Cneoformans/gatti Not Reported Not Detected (NotDetected); Cparapsilosis Not Reported Not Detected (NotDetected); Ctropicalis Not Reported Not Detected (NotDetected); E cloacae compx Not Reported Not Detected (NotDetected); Efaecalis Not Reported Not Detected (NotDetected); Efaecium Not Reported Not Detected (NotDetected); Enterobacterales Not Reported Not Detected (NotDetected); Escherichia coli Not Reported Not Detected (NotDetected); H influenzae Not Reported Not Detected (NotDetected); K aerogenes Not Reported Not Detected (NotDetected); Koxytoca Not Reported Not Detected (NotDetected); Kpneumoniae grp Not Reported Not Detected (NotDetected); Lmonocyt Not Reported Not Detected (NotDetected); N meningitidis Not Reported Not Detected (NotDetected); P aeruginosa Not Reported Not Detected (NotDetected); Proteus spp Not Reported Not Detected (NotDetected); Salmonella spp Not Reported Not Detected (NotDetected); Smarcescens Not Reported Not Detected (NotDetected); Staph lugdunensis Not Reported Not Detected (NotDetected); Staph spp. Not Reported DETECTED (NotDetected); Staphaureus Not Reported Not Detected (NotDetected); Staphepi Not Reported Not Detected (NotDetected); Stenmaltophilia Not Reported Not Detected (NotDetected); Strep agal(GrpB) Not Reported Not Detected (NotDetected); Strep pneum Not Reported Not Detected (NotDetected); Strep pyog (GrpA) Not Reported Not Detected (NotDetected); Strep spp Not Reported Not Detected (NotDetected)
[2022-04-20 12:01] LABS: Staphylococcus spp. DETECTED (NotDetected)
[2022-04-20] MEDS ORDERED: VANCOMYCIN CONSULT ACTIVE PRN (12:25)
[2022-04-20] MEDS ORDERED: VANCOMYCIN HCL 1,500 MG in SODIUM CHLORIDE 0.9% 500 ML IV ONE (12:25)
--- NOTE | 2022-04-20 13:00 | Hospitalist Progress Note ---
Date of Service April 20, 2022 Assessment & Plan (1) Unsteady gait: Plan: Associated with inability to use upper extremities properlyunclear etiology; possible posterior circulation cerebrovascular ischemiaaspirin, LDL notedlow- dose statin; CTA head and neck pending per discussion and input from neurology OT/PT (2) Urinary retention: Plan: With some pericatheter bleeding; urology input appreciated; at present nothing to suggest art UTIdefer antibiotics (3) Elevated lipase: Plan: Unclear significance; possible low-grade pancreatitis; noted CT scan findings; at some point might merit PET scan/MRI given history of prostate cancer; advance diet; symptoms resolved (4) Hypertension: Plan: Still hold thiazide; stop IV fluid and observe (5) Constipation: Plan: Bowel regimen - has been explained that he is constipated but he keeps refusing Rx; yesterday had also refused suppository (6) Gram-positive bacteremia: Plan: Appears contaminant, not staph aureus; Pro-Andres negative twice and clinically improvedobserve pending identification; repeat culture Plan DNR; SCDs Aileen surrogate decision maker Admission and Anticipated Discharge Date Admission Date: April 19, 2022 Subjective Follow-up of presentation of inability to use hands properly, dizziness and unsteady gait; associated symptomology some abdominal discomfort and very supr apubic hematuriafeels much better, wants to eat Physical Exam Physical Exam: Constitutional and general: No acute distress, looks biologic age Head and face: No puffiness, atraumatic Eyes: No scleral icterus, extraocular movements normal Neck: Supple, no JVD Musculoskeletal: No acute joint swelling, no bony abnormalities Skin/dermatologic/integument: No rash, no purpura Hematologic and lymphatic: pallor +, no petechia Gastrointestinal/abdomen: Nondistended, soft, nonacute Neurologic: Cranial nerves intact, nonfocal Psychiatry: Awake, alert, pleasant, communicative Cardiovascular: Heart rhythm regular, no rub, no murmur, no gallop Respiratory: Chest movements equal, no use of accessory muscles, no adventitious sounds Extremities: No edema, no cyanosis Results & Data Results & Data ([facility]) Vital Signs (Past 12 Hours) Vital Signs Temp Pulse Pulse Resp BP Pulse Ox O2 Del Method 04/20/22 12:05 36.6 C 72 18 123/70 98 Room Air 04/20/22 08:00 58 L 04/20/22 07:38 36.7 C 68 18 137/78 96 Room Air 04/20/22 04:53 36.8 C 67 18 130/75 97 Room Air Laboratory Results Laboratory Results - last 24 hr 04/19/22 04/19/22 04/20/22 08:20 14:22 06:43 WBC 4.61 L RBC 3.46 L Hgb 10.5 L Hct 31.0 L MCV 89.6 MCH 30.3 MCHC 33.9 RDW Std Deviation 40.8 RDW Coeff of Latasha 12.5 Plt Count 243 MPV 10.7 Immature Gran % (Auto) 0.9 Neut % (Auto) 42.7 Lymph % (Auto) 24.7 Campbell % (Auto) 22.8 Eos % (Auto) 8.2 Baso % (Auto) 0.7 Neut # (Auto) 1.97 Lymph # (Auto) 1.14 L Campbell # (Auto) 1.05 H Eos # (Auto) 0.38 Baso # (Auto) 0.03 Immature Gran # (Auto) 0.04 H Sodium Potassium Chloride Carbon Dioxide Anion Gap BUN Creatinine Est Cr Clr Drug Dosing Est GFR ( Amer) Est GFR (Non-Af Amer) Fasting Glucose Calcium Phosphorus Magnesium Total Bilirubin AST ALT Alkaline Phosphatase Total Protein Albumin Globulin Albumin/Globulin Ratio Triglycerides Cholesterol LDL Cholesterol, Calc VLDL Cholesterol, Calc HDL Cholesterol Cholesterol/HDL Ratio Lipase Procalcitonin < 0.05 Staphylococcus sp PCR DETECTED A Bld Cult ID Panel PCR See PCR Comment 04/20/22 04/20/22 06:43 06:43 WBC RBC Hgb Hct MCV MCH MCHC RDW Std Deviation RDW Coeff of Latasha Plt Count MPV Immature Gran % (Auto) Neut % (Auto) Lymph % (Auto) Campbell % (Auto) Eos % (Auto) Baso % (Auto) Neut # (Auto) Lymph # (Auto) Campbell # (Auto) Eos # (Auto) Baso # (Auto) Immature Gran # (Auto) Sodium 135 L Potassium 3.9 Chloride 104 Carbon Dioxide 28 Anion Gap 3 BUN 8 Creatinine 0.73 Est Cr Clr Drug Dosing 59.7 Est GFR ( Amer) 96.7 Est GFR (Non-Af Amer) 83.4 Fasting Glucose 105 H Calcium 8.4 L Phosphorus 2.3 L Magnesium 2.0 Total Bilirubin 0.6 AST 9 L ALT 8 Alkaline Phosphatase 55 Total Protein 5.8 L Albumin 3.4 Globulin 2.4 L Albumin/Globulin Ratio 1.4 Triglycerides 65 Cholesterol 121 LDL Cholesterol, Calc 76 VLDL Cholesterol, Calc 13 HDL Cholesterol 32 Cholesterol/HDL Ratio 3.8 Lipase 106 H Procalcitonin < 0.05 Staphylococcus sp PCR Bld Cult ID Panel PCR PG Care Time/CCT Total # of Minutes Spent Total Time Spent with Patient: Total time spent is greater than 50% in coordination of care (as documented) at patient's floor/unit and/or counseling patient: Coding Level of Care Code 45173 Subseq Hosp Care Lvl 2 Diagnoses Unsteady gait R26.81 Urinary retention R33.9 Elevated lipase R74.8 Hypertension I10 Constipation K59.00 Gram-positive bacteremia R78.81
[2022-04-20] MEDS ORDERED: POT PHOSPHATE MONOBASIC W/ SOD TAB PO ONE (13:30)
[2022-04-20] MEDS: DOCUSATE SODIUM/SENNA 50/8.6MG TAB PO SCH ×2 (13:42→13:44)
[2022-04-20] MEDS ORDERED: OPTIRAY 300 500mL IV ONE (18:54)
--- NOTE | 2022-04-20 20:34 | CT Scan Report ---
HEAD & NECK CTA HISTORY: Gait unsteadiness, possible TIA TECHNIQUE: Multiaxial CT images of the head were performed following the intravenous administration o f contrast to evaluate the major cerebral vessels. Multiaxial CT images of the neck were also perform ed following the intravenous administration of contrast to evaluate the major cervical vessels. Maxim um intensity projection images were also obtained. A dose lowering technique was utilized adhering to the principles of ALARA. COMPARISON: Brain MRI 04/19/2022. FINDINGS: There is no mass, hematoma, midline shift, or acute infarct. Visualized intracranial internal carotid arteries, distal vertebral arteries, and basilar artery are widely patent. There is no significant s tenosis, occlusion, or aneurysm seen within the bilateral ACAs, MCAs, or manufacturing sr engineer. The major dural venous sinuses are patent. The incomplete contrast opacification of the left transverse sinus is likely due to the timing of contrast rather than a filling defect. The aortic arch and proximal great vessels are widely patent. There is no significant stenosis, occ lusion, or dissection identified within the bilateral common carotid, internal carotid, or vertebral arteries. There is a 1 cm irregular nodule within the left lung apex on image 80. This is suspicious for a primary bronchogenic malignancy. Slightly hypoplastic right vertebral artery in comparison to t he left. There is a tortuous mid left cervical internal carotid artery demonstrating mild fusiform an eurysmal dilatation. This measures up to 7 mm in diameter. IMPRESSION: 1. No significant stenosis, occlusion, or aneurysm within the [place]. 2. No significant stenosis, occlusion, or dissection identified within the carotid or vertebral arter ies. 3. A 1 cm irregular nodule within the left lung apex. This is suspicious for a primary bronchogenic m alignancy. Pulmonary consultation recommended. 4. 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 ACT 112: Negative or not required by law. Electronically signed by: Zeferino Kruger M.D. 04/20/2022 8:32 PM
--- NOTE | 2022-04-20 20:34 | CT Scan Report ---
HEAD & NECK CTA HISTORY: Gait unsteadiness, possible TIA TECHNIQUE: Multiaxial CT images of the head were performed following the intravenous administration o f contrast to evaluate the major cerebral vessels. Multiaxial CT images of the neck were also perform ed following the intravenous administration of contrast to evaluate the major cervical vessels. Maxim um intensity projection images were also obtained. A dose lowering technique was utilized adhering to the principles of ALARA. COMPARISON: Brain MRI 04/19/2022. FINDINGS: There is no mass, hematoma, midline shift, or acute infarct. Visualized intracranial internal carotid arteries, distal vertebral arteries, and basilar artery are widely patent. There is no significant s tenosis, occlusion, or aneurysm seen within the bilateral ACAs, MCAs, or medical imaging specialist. The major dural venous sinuses are patent. The incomplete contrast opacification of the left transverse sinus is likely due to the timing of contrast rather than a filling defect. The aortic arch and proximal great vessels are widely patent. There is no significant stenosis, occ lusion, or dissection identified within the bilateral common carotid, internal carotid, or vertebral arteries. There is a 1 cm irregular nodule within the left lung apex on image 80. This is suspicious for a primary bronchogenic malignancy. Slightly hypoplastic right vertebral artery in comparison to t he left. There is a tortuous mid left cervical internal carotid artery demonstrating mild fusiform an eurysmal dilatation. This measures up to 7 mm in diameter. IMPRESSION: 1. No significant stenosis, occlusion, or aneurysm within the [place]. 2. No significant stenosis, occlusion, or dissection identified within the carotid or vertebral arter ies. 3. A 1 cm irregular nodule within the left lung apex. This is suspicious for a primary bronchogenic m alignancy. Pulmonary consultation recommended. 4. 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 ACT 112: Negative or not required by law. Electronically signed by: Zeferino Kruger M.D. 04/20/2022 8:32 PM
[2022-04-20] MEDS ORDERED: ATORVASTATIN 20 MG TAB PO SCH (21:00)
[2022-04-20] MEDS: MELATONIN 3 MG TAB PO PRN (21:03)
[2022-04-20] MEDS: ACETAMINOPHEN 325 MG TAB PO PRN (21:03)
[2022-04-21 06:32] LABS: Basophils # (auto) 0.03 K/uL (0-0.2); Basophils % (auto) 0.5 %; Eosinophils # (auto) 0.41 K/uL (0-0.50); Eosinophils % (auto) 6.9 %; Hematocrit (blood only) 32.8 % (40.1-51.0); Hemoglobin 11.1 g/dl (14.0-18.0); Immature Granulocytes # (auto) 0.03 K/uL (0.00-0.02); Immature Granulocytes % (auto) 0.5 %; Lymphocytes # (auto) 1.26 K/uL (1.2-3.4); Lymphocytes % (auto) 21.2 %; Mean Corpuscular Hemoglobin 30.2 pg (25.0-34.0); Mean Corpuscular Hgb Conc 33.8 g/dL (32.0-36.0); Mean Corpuscular Volume 89.4 fL (80.0-100.0); Mean Platelet Volume 10.3 fL (9.4-12.4); Monocytes # (auto) 1.13 K/uL (0.24-0.82); Neutrophils # (auto) 3.09 K/uL (1.4-6.5); Neutrophils % (auto) 51.9 %; Platelet Count 262 K/uL (130-400); RDW Coefficient of Variation 12.4 % (11.5-14.5); Red Blood Count 3.67 M/uL (4.63-6.08); White Blood Count 5.95 K/ul (4.8-10.8)
[2022-04-21 06:58] LABS: Albumin Globulin Ratio 1.5 (0.9-2); Albumin Level 3.8 gm/dl (3.4-5.0); Bilirubin,Total 0.5 mg/dl (0.2-1.0); Calcium 8.6 mg/dl (8.5-10.1); Creatinine Clr Calc Pharmacy 53.8 ml/min; Est GFR (African American) 92.6 ml/min; Est GFR (Non-African American) 79.9 ml/min; Globulin 2.5 gm/dl (2.5-4.0); Phosphorus 2.4 mg/dl (2.5-4.9); Potassium 3.9 mmol/L (3.5-5.1); Total Protein 6.3 gm/dl (6.0-8.3)
[2022-04-21] MEDS: ASPIRIN 81 MG ECTAB PO SCH (09:15)
[2022-04-21] MEDS: DOCUSATE SODIUM/SENNA 50/8.6MG TAB PO SCH (09:15)
--- NOTE | 2022-04-21 11:53 | CT Scan Report ---
CT chest diagnostic wo con CLINICAL HISTORY: Lung nodule; look for lymphadenopathy pls TECHNIQUE: Multidetector row helical CT of the chest was performed. Coronal and sagittal reformations were obtained. Automated dose lowering techniques and/or adjustment according to patient size were u tilized for this exam. CT DOSE: 218.49 mGycm Comparison: Comparison is made to CTA head and neck 04/20/2022 FINDINGS: Lungs and pleura: There is a mildly spiculated nodule in the left apex measuring 8 x 7 x 8 mm contain ing a tiny focus of cavitation. There is also a 4 mm nodule in the left lower lobe (series 4 image 17 4). There is adjacent pleural thickening containing a focus of calcification. Heart and pericardium: Heart size is normal. No pericardial effusion. Vessels: Moderate atherosclerotic changes in the aorta and coronary arteries. Mediastinum and ibeth: Subcentimeter lymph nodes are seen. Although evaluation is limited by noncontra st technique, no left hilar lymphadenopathy is definitely seen. Chest wall and lower neck: Unremarkable. Abdomen: Unremarkable. Bones: Degenerative changes in the thoracic spine. IMPRESSION: Redemonstration of a millimeter nodule in the left upper lobe containing a focus of calcification. Th ere is also a 4 mm nodule in the left lower lobe with adjacent pleural thickening. No lymphadenopathy is seen. Findings are concerning for primary bronchogenic malignancy. PET/CT, tissue sampling, and/o r three-month follow-up chest CT can be performed. ACT 112: Positive. There are findings on this exam that require communication between the performing entity and the patient following Patient Test Result Information Act ([place] Act 112) guidelines. Electronically signed by: Gil Rivera M.D. 04/21/2022 11:51 AM
--- NOTE | 2022-04-21 12:33 | Neurology Progress Note ---
Date of Service April 21, 2022 Assessment & Plan (1) Vertigo: Plan: Impression:The patient had short lasting real vertigo, with additional nausea, vomiting, unsteady gait, and altered coordination of upper extremities, which resolved in 15 to 20 minutes, without additional neurological symptoms. Underlying etiology is unclear at this time. Posterior circulation TIA and short lasting canalith detachment are in differential. Brain MRI and CTA of head and neck did not show pathology to explain vertiginous episode. Plan: We will keep the patient on aspirin 81 mg daily for stroke prevention based on unclear etiology of the recent event. -If he experience similar episodes, neurology clinic f/u. -Neurologically stable to discharge home. -We will sign off. (2) Carotid aneurysm, left: Plan: Impression: CT angiography of head and neck did not show any hemodynamically significant stenosis, primarily involving posterior circulation. 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 Plan: Complication risk is very low from fusiform aneurysm of internal carotid artery. There is no indication for intervention or vascular consultation. Admission and Anticipated Discharge Date Admission Date: April 19, 2022 Subjective The patient has been symptom-free since admission. He has not had dizziness, or vertiginous symptoms. He eats and sleeps well. He ambulates without difficulty. He has not developed any new neurological symptoms. CT angiography findings are explained to the patient and family. Review of Systems Review of Systems: All systems reviewed & are unremarkable except as noted in HPI & below Physical Exam Physical Exam: General Examination: Constitutional:Well developed person in no acute distress. HENT:Normal exam with inspection. Wearing hearing aids. CV:Hearth rhythm is regular. Neck:Supple, no carotid bruits. Lungs:Non-labored and comfortable breathing. Abdomen:Soft, non-tender, non-distended. Some suprapubic discomfort with palpation. Skin:No rash or ecchymosis. Extremities:No edema or cyanosis NEUROLOGICAL EXAMINATION: Mental Status:Alert and oriented to place, person and time. Cranial Nerves:II-XII are intact except bilateral SNHI. No nystagmus. Funduscopy:Normal looking optic discs. Motor:5/5 in all extremities without asymmetry. Tone:Normal without spasticity or rigidity. Sensory:Intact grossly. Coordination:No dysmetria with FTN testing. Speech:Fluent. Comprehension is intact. Gait:Normal. No ataxia or abnormal walking pattern. Musculoskeletal:Normal muscle bulk, no atrophy. Luis-Hallpike:Negative bilaterally. Results & Data ([facility]) Vital Signs (Past 12 Hours) Vital Signs Temp Pulse Pulse Resp BP Pulse Ox O2 Del Method 04/21/22 11:06 36.3 C L 73 18 140/68 98 Room Air 04/21/22 10:53 58 L 04/21/22 07:53 36.8 C 75 18 120/63 96 Room Air 04/21/22 03:44 36.8 C 79 18 117/63 96 Room Air Laboratory Results Abnormal Lab Results 04/21/22 04/21/22 06:14 06:14 WBC 5.95 RBC 3.67 L Hgb 11.1 L Hct 32.8 L MCV 89.4 MCH 30.2 MCHC 33.8 RDW Std Deviation 40.0 RDW Coeff of Latasha 12.4 Plt Count 262 MPV 10.3 Immature Gran % (Auto) 0.5 Neut % (Auto) 51.9 Lymph % (Auto) 21.2 [place] % (Auto) 19.0 Eos % (Auto) 6.9 Baso % (Auto) 0.5 Neut # (Auto) 3.09 Lymph # (Auto) 1.26 [place] # (Auto) 1.13 H Eos # (Auto) 0.41 Baso # (Auto) 0.03 Immature Gran # (Auto) 0.03 H Sodium 134 L Potassium 3.9 Chloride 102 Carbon Dioxide 27 Anion Gap 5 BUN 9 Creatinine 0.81 Est Cr Clr Drug Dosing 53.8 Est GFR ( Amer) 92.6 Est GFR (Non-Af Amer) 79.9 Fasting Glucose 105 H Calcium 8.6 Phosphorus 2.4 L Magnesium 2.0 Total Bilirubin 0.5 AST 10 L ALT 8 Alkaline Phosphatase 62 Total Protein 6.3 Albumin 3.8 Globulin 2.5 Albumin/Globulin Ratio 1.5 Diagnostic Findings Brain MRI 04/19/22 13:57 MRI OF THE BRAIN WITHOUT IV CONTRAST CLINICAL HISTORY: Upper extremity weakness. Gait instability. COMPARISON STUDY: CT of the brain performed the same day 04/19/2022. TECHNIQUE: MRI of the brain was performed utilizing various T1 and T2-weighted sequences in the axial, sagittal, and coronal planes. IV contrast was not administered for this examination. FINDINGS: Brain parenchyma: There is age-related involutional change noting moderate subcortical and periventricular microangiopathic disease. There is no hemorrhage or mass effect. There is no restricted diffusion to suggest acute ischemia. There are tiny chronic lacunar infarcts within both cerebellar hemispheres, as well as the left thalamus and left basal ganglia. Seymour-white matter differentiation is preserved. No extra-axial fluid collection is seen. The cerebellar tonsils are normal in configuration. Ventricles, sulci, and cisterns: Prominent secondary to involutional change. Pituitary and sella: Unremarkable. Intracranial vasculature: Normal flow voids are maintained at the skull base. There is dolichoectasia of the basilar artery. Orbits: The bony orbits are grossly intact. Orbital contents are normal in appearance noting bilateral ocular lens implants. Sinuses and mastoids: Mild mucosal thickening is noted within the right maxillary antrum and the ethmoid sinuses. The mastoid air cells are clear. Calvarium: Unremarkable. Cervical cord: Partially visualized cervical spinal cord is normal in morphology and signal intensity. IMPRESSION: No acute intracranial abnormality. ACT 112: Negative or not required by law. Electronically signed by: Matthieu Villa M.D. 04/19/2022 3:03 PM Head CTA 04/19/22 18:39 HEAD & NECK CTA HISTORY: Gait unsteadiness, possible TIA TECHNIQUE: Multiaxial CT images of the head were performed following the intravenous administration of contrast to evaluate the major cerebral vessels. Multiaxial CT images of the neck were also performed following the intravenous administration of contrast to evaluate the major cervical vessels. Maximum intensity projection images were also obtained. A dose lowering technique was utilized adhering to the principles of ALARA. COMPARISON: Brain MRI 04/19/2022. FINDINGS: There is no mass, hematoma, midline shift, or acute infarct. Visualized intracranial internal carotid arteries, distal vertebral arteries, and basilar artery are widely patent. There is no significant stenosis, occlusion, or aneurysm seen within the bilateral ACAs, MCAs, or trains dispatcher supervisor. The major dural venous sinuses are patent. The incomplete contrast opacification of the left transverse sinus is likely due to the timing of contrast rather than a filling defect. The aortic arch and proximal great vessels are widely patent. There is no significant stenosis, occlusion, or dissection identified within the bilateral common carotid, internal carotid, or vertebral arteries. There is a 1 cm irregular nodule within the left lung apex on image 80. This is suspicious for a primary bronchogenic malignancy. Slightly hypoplastic right vertebral artery in comparison to the left. There is a tortuous mid left cervical internal carotid artery demonstrating mild fusiform aneurysmal dilatation. This measures up to 7 mm in diameter. IMPRESSION: 1. No significant stenosis, occlusion, or aneurysm within the [place]. 2. No significant stenosis, occlusion, or dissection identified within the carotid or vertebral arteries. 3. A 1 cm irregular nodule within the left lung apex. This is suspicious for a primary bronchogenic malignancy. Pulmonary consultation recommended. 4. 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 ACT 112: Negative or not required by law. Electronically signed by: Zeferino Kruger M.D. 04/20/2022 8:32 PM Neck CTA 04/19/22 18:39 HEAD & NECK CTA HISTORY: Gait unsteadiness, possible TIA TECHNIQUE: Multiaxial CT images of the head were performed following the intravenous administration of contrast to evaluate the major cerebral vessels. Multiaxial CT images of the neck were also performed following the intravenous administration of contrast to evaluate the major cervical vessels. Maximum intensity projection images were also obtained. A dose lowering technique was utilized adhering to the principles of ALARA. COMPARISON: Brain MRI 04/19/2022. FINDINGS: There is no mass, hematoma, midline shift, or acute infarct. Visualized intracranial internal carotid arteries, distal vertebral arteries, and basilar artery are widely patent. There is no significant stenosis, occlusion, or aneurysm seen within the bilateral ACAs, MCAs, or trains dispatcher supervisor. The major dural venous sinuses are patent. The incomplete contrast opacification of the left transverse sinus is likely due to the timing of contrast rather than a filling defect. The aortic arch and proximal great vessels are widely patent. There is no significant stenosis, occlusion, or dissection identified within the bilateral common carotid, internal carotid, or vertebral arteries. There is a 1 cm irregular nodule within the left lung apex on image 80. This is suspicious for a primary bronchogenic malignancy. Slightly hypoplastic right vertebral artery in comparison to the left. There is a tortuous mid left cervical internal carotid artery demonstrating mild fusiform aneurysmal dilatation. This measures up to 7 mm in diameter. IMPRESSION: 1. No significant stenosis, occlusion, or aneurysm within the [place]. 2. No significant stenosis, occlusion, or dissection identified within the carotid or vertebral arteries. 3. A 1 cm irregular nodule within the left lung apex. This is suspicious for a primary bronchogenic malignancy. Pulmonary consultation recommended. 4. 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 ACT 112: Negative or not required by law. Electronically signed by: Zeferino Kruger M.D. 04/20/2022 8:[address] 04/21/22 08:18 CT chest diagnostic wo con CLINICAL HISTORY: Lung nodule; look for lymphadenopathy pls TECHNIQUE: Multidetector row helical CT of the chest was performed. Coronal and sagittal reformations were obtained. Automated dose lowering techniques and/or adjustment according to patient size were utilized for this exam. CT DOSE: 218.49 mGycm Comparison: Comparison is made to CTA head and neck 04/20/2022 FINDINGS: Lungs and pleura: There is a mildly spiculated nodule in the left apex measuring 8 x 7 x 8 mm containing a tiny focus of cavitation. There is also a 4 mm nodule in the left lower lobe (series 4 image 174). There is adjacent pleural thickening containing a focus of calcification. Heart and pericardium: Heart size is normal. No pericardial effusion. Vessels: Moderate atherosclerotic changes in the aorta and coronary arteries. Mediastinum and ibeth: Subcentimeter lymph nodes are seen. Although evaluation is limited by noncontrast technique, no left hilar lymphadenopathy is definitely seen. Chest wall and lower neck: Unremarkable. Abdomen: Unremarkable. Bones: Degenerative changes in the thoracic spine. IMPRESSION: Redemonstration of a millimeter nodule in the left upper lobe containing a focus of calcification. There is also a 4 mm nodule in the left lower lobe with adjacent pleural thickening. No lymphadenopathy is seen. Findings are concerning for primary bronchogenic malignancy. PET/CT, tissue sampling, and/or three-month follow-up chest CT can be performed. ACT 112: Positive. There are findings on this exam that require communication between the performing entity and the patient following Patient Test Result Information Act ([place] Act 112) guidelines. Electronically signed by: Gil Rivera M.D. 04/21/2022 11:51 AM
--- NOTE | 2022-04-21 15:16 | Discharge Summary ---
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 that has resolved; in addition, has had some nausea, vomiting; abdominal discomfort 4 to 5 days and bleeding around suprapubic catheter since about a week. No bleeding into the bag. He does additionally report constipation. No known fever. No other specific symptoms. In the ER, basic work-up showed mild anemia mild hyponatremia, urinary abnorm alities, mildly elevated lipase. CT brain was nonacute, CT abdomen showed some peripancreatic infiltration, constipation, pericolonic lymph nodes. Please refer to our service for admission for further management Principal Diagnosis Dizziness, vertigo, transient upper extremity weakness New lung nodule Discharge Exam Comfortable, RRR, normal strength Discharge Data Allergies Allergy/AdvReac Type Severity Reaction Status Date / Time No Known Drug Allergies Allergy NKDA Verified 04/19/22 15:26 pollen AdvReac Intermediate nasal Uncoded 04/19/22 15:26 congestion Consultations 04/19/22 09:19 ED Decision to Admit Stat 04/19/22 13:57 Consult Neurology Routine Consult Urology Routine 04/21/22 11:41 Consult Lung Nodule Program Routine Ordered Studies 04/19/22 07:47 CT abd pelvis wo con Stat CT head/brain wo con Stat 04/19/22 13:57 MRI Brain [MR brain wo con] Urgent 04/19/22 18:39 CTA head w con [CT angio head w con] Urgent CTA neck with con [CT angio neck with con] Urgent 04/21/22 08:18 CT chest diagnostic wo con Routine Hospital Course (1) Unsteady gait: Associated with inability to use upper extremities properlyunclear etiology; possible posterior circulation cerebrovascular ischemia vs. BPPV. 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 - Seen by neurology; discharged on: ASA 81 mg daily, atorvastatin 20 mg HS - No need for follow-up on aneurysm per neurology (2) Lung nodule: Chest CT on 04/21 -> Mildly spiculated nodule in the left apex measuring 8 x 7 x 8 mm containing a tiny focus of cavitation. - Follow-up with [facility] - Discussed with pulmonary - Will see him in clinic and likely just repeat chest CT in 3 months. Discussed with patient and son. (3) Urinary retention: With some pericatheter bleeding; urology input appreciated; at present nothing to suggest art UTIdefer antibiotics. (4) Elevated lipase: Unclear significance; possible low-grade pancreatitis; noted CT scan findings; at some point might merit PET scan/MRI given history of prostate cancer; advance diet; symptoms resolved. (5) Hypertension: Continue home HCTZ on discharge. (6) Constipation: Bowel regimen - has been explained that he is constipated but he keeps refusing Rx; yesterday had also refused suppository - Outpatient f/u (7) Gram-positive bacteremia: Contaminant, not staph aureus. Repeats negative so far. Total Time Total Time Spent Total Time Spent (In Minutes): 35 Discharge Plan Discharge Items Patient Disposition: Home - Home Health Services Reason For Visit: UE WEAKNESS, GAIT UNSTEADINESS Discharge Diagnosis: Arm weakness, unsteadiness, dizziness Activity: Resume your previous activity Non-emergency contact: Primary Care Provider Call non-emergency contact if: your pain is not controlled Follow-up/Referrals: [facility] [place] [facility] [Provider Group] (Please follow up with the [facility].) Avni Verdin, [Primary Care Provider] - Yanick Knight MD [Physician] - (Please see him in follow-up for your small aneursym.) Diet: Heart Healthy Addtl Attending Provider Instructions: Mr. Edward, You were admitted to the hospital with an episode of dizziness/vertigo as well as some upper arm weakness. Fortunately, this resolved very quickly, and has not returned. We had a neurologist (Dr. Randall) see you, and he felt you were doing well. The episode has resolved. He recommended you start taking a baby aspirin. A small aneurysm was seen on our testing near the left internal carotid artery. It is small enough that it does not need to be treated. It is only 7 mm, so it is quite small. Finally, on the testing of the neck, there was a small nodule that was noticed on the left upper lung. We did a CT scan of your lungs and only saw one other very small nodule. You can follow up with pulmonology for this nodule. As we discussed, the biggest concern could be cancer, but we certainly aren't sure about that. Please see Dr. Hernadez in the office with plans to repeat your testing in 3 months. Pending Studies at Discharge: Yes Studies:: Final read of your chest CT scan. Stand-Alone Forms: My [facility], Smoking Cessation Medications and DC Order Prescriptions: New atorvastatin 20 mg Tablet 20 mg PO HS Qty: 30 0RF aspirin 81 mg Tablet,Delayed Release (Dr/Ec) 81 mg PO QAM Qty: 0 0RF Continued acetaminophen [Tylenol] 325 mg Tablet 650 mg PO QID PRN (Reason: Pain) hydrochlorothiazide 12.5 mg capsule 12.5 mg PO DAILY cranberry 400 mg Capsule 0 mg PO DAILY PRN (Reason: ..) Rx Instructions: administer with a meal diphenhydramine-acetaminophen [Tylenol PM Extra Strength] 25-500 mg Tablet 1 tab PO HS PRN (Reason: Sleep) Discharge Orders: Discharge Order (Routine); Ordered 04/21/22 Ordered By: Lamin Berry Admission Data Admit Date/Time: 04/19/22 11:08 Attending Provider: Lamin Berry Admit Provider: Maria Ines Wilkinson Primary Care Provider: Avni Verdin Other Providers: Maria Ines Wilkinson ; Ovi Randall ; Boyd Giraldo Other Interventions: Discharge Summary Assessment (RN) Last Done: 04/21/22 13:45 Coding Level of Care Code D/C DAY MANAGEMENT >30 MINS Diagnoses Unsteady gait R26.81 Lung nodule R91.1 Urinary retention R33.9 Elevated lipase R74.8 Hypertension I10 Constipation K59.00 Gram-positive bacteremia R78.81
== END 2022-04-21 14:25 | disposition home or self-care (01) | DRG 149 ==
LOC: ED 07:20 → SUATTDRO 11:08 → EDINP 11:08 → 2E 13:58
DX: I10 Essential (primary) hypertension; R33.9 Retention of urine, unspecified; R42 Dizziness and giddiness; E87.1 Hypo-osmolality and hyponatremia; R26.81 Unsteadiness on feet; C61 Malignant neoplasm of prostate; R29.700 NIHSS score 0; N32.0 Bladder-neck obstruction; R91.1 Solitary pulmonary nodule; Z87.891 Personal history of nicotine dependence; D64.9 Anemia, unspecified; K85.90 Acute pancreatitis without necrosis or infection, unspecified; K59.00 Constipation, unspecified; Z93.51 Cutaneous-vesicostomy status

== ENCOUNTER 2024-02-24 10:25 | Inpatient (IN) ==
--- NOTE | 2024-02-24 11:51 | Emergency Department Note ---
Impression & Plan Diverticulitis of intestine with perforation ED Provider Note Diagnosis: Diverticulitis with perforation Disposition: Admit CHIEF COMPLAINT: Abdominal pain HPI: Patient is an 88-year-old male presenting with complaint of lower abdominal pain. Patient states symptoms started this morning. Patient states he had an episode of feeling lightheaded like he was going to pass out. Patient denies any active chest pain. Patient states he had chills and was feeling weak. Patient has urostomy at baseline and it has been draining appropriately. Patient does have history of diverticulitis previously. Patient states he was trying to have a bowel movement this morning it was constipated. Patient states he took his vital signs at home and was hypotensive with a blood pressure of 80 systolic. Patient upon arrival in the emergency room had a blood pressure above 130 systolic. PAST MEDICAL HISTORY: See Below PAST SURGICAL HISTORY: See Below SOCIAL HISTORY: See Below HOME MEDICATIONS: See Below ALLERGIES: See Below VITALS: See Below PHYSICAL EXAMINATION: GENERAL: Well appearing, well nourished, NAD, non-toxic. EYE EXAM: Normal conjunctiva. OROPHARYNX: Moist mucus membranes. Grossly normal dentition. NECK: Supple, LUNGS: Clear to auscultation. Normal chest wall mechanics. HEART: NSR ABDOMEN: Abdomen soft, tenderness lower abdomen bilaterally, urostomy in place BACK: No CVA TTP. SKIN: No rashes and no bruising. UPPER EXTREMITIES: Upper extremities are grossly normal LOWER EXTREMITIES: Grossly normal, no edema. NEURO EXAM: A&O x3,, normal speech, moves all 4 extremities PSYCH: Cooperative MEDICAL DECISION MAKING: Reviewed external documents: History obtained from: Patient, and daughters ER Course: Patient is an 88-year-old male presenting with complaint of lower abdominal pain. Patient was having generalized weakness earlier today. Patient does have a urostomy and has been draining fluid regularly. Patient found to have a leukocytosis on blood work. Patient had CT scan performed of abdomen pelvis due to pain and history of diverticulitis. Patient CT scan today shows perforated diverticulitis with pneumoperitoneum. Patient started on Zosyn. General surgery was paged to discuss findings of CT scan. Please see discussion below. Labs (independently interpreted) are significant for: Leukocytosis Imaging results (independently interpreted): Chest x-ray clear EKG interpretation (independently interpreted): Normal sinus rhythm no ST segment elevation or depression Medications given: Zosyn, normal saline bolus Consultants: General surgery team. Discussion was had with the physician assistant broker who reviewed the case with her attending. They will come down and evaluate the patient in the emergency room. Recommend admission to medicine service due to patient's comorbidities. Discussion with hospital service accepts patient for further treatment and evaluation Triage Nursing notes reviewed and agree them. 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 Knight Medical History VIEJAS (hard of hearing) pt is VERY VIEJAS--had some difficulty with PAT assessment Chronic anemia Arthritis History of prostate cancer 1993 s/p prostatectomy (per patient, unable to cath d/t scar tissue), no chemo/XRT Hx of vertigo Hypertension Tinea corporis Osteoarthritis Hearing deficit Surgical History Chronic suprapubic catheter History of cystoscopy multiple: last 05/09/21 @ [facility] Internal Urethrotomy (DVIU) and Incision of Bladder Neck (02/28/21): MAC at [facility] History of total knee replacement Left TKA (06/08/19): SAB at L3/L4 (x1 attempt) + PNB at [facility] H/O prostate biopsy History of colonoscopy History of tooth extraction History of cataract extraction R/L History of appendectomy Hx of left inguinal hernia repair Incarcerated hernia with bowel obstruction H/O prostatectomy Family History Father Prostate cancer Hypertension Mother Liver disease Brother Lung cancer Hypertension Other No family history of adverse response to anesthesia Social History Smoking Status: Former smoker Second Hand Exposure: No; Do You Dip or Chew Tobacco: No; Hx Alcohol Use: Yes Alcohol type: wine Hx Substance Use: No Preferred Language: Vietnamese Communication Ability: Effective Visual Impairment: No Limitations Hearing Ability: Normal Jboss Architect Required: No Beliefs That Will Affect Care: None marital status: Current Living Situation: Spouse current occupational status: retired Feels Safe at Home: Yes Diet: regular Assistive Devices: Denture - Upper, Denture - Lower, Glasses and Hearing Aid - Bilateral Allergies Allergies Allergy/AdvReac Type Severity Reaction Status Date / Time pollen extracts Allergy Intermediate NASAL Verified 02/24/24 13:03 CONGESTION Home Meds Home Medications Medication Instructions Recorded Confirmed polyethylene glycol 3350 17 8.5 g PO DAILY PRN Constipation 05/09/22 02/24/24 gram/dose oral powder (Miralax) lisinopril 10 mg tablet 10 mg PO DAILY 11/04/22 02/24/24 meloxicam 15 mg tablet 15 mg PO DAILY PRN Pain 11/07/23 02/24/24 Previous Rx's Medication Instructions Recorded aspirin 81 mg tablet,delayed 81 mg PO QAM #0 tabs 04/21/22 release Results & Data (ED) Vital Signs Vital Signs - 24 hr 02/24/24 10:56 02/24/24 11:23 02/24/24 12:58 Temperature 36.6 C Temperature Source Temporal Artery Scan Pulse Rate 89 Pulse Rate [Apical] 91 H 99 H Respiratory Rate 18 18 19 Respiratory Effort / Characteristics Non-Labored Spontaneous Respiratory Depth Normal Blood Pressure 109/67 Blood Pressure [Left Arm] 142/70 H 158/89 H Blood Pressure Mean 81 Blood Pressure Mean [Left Arm] 94 112 Blood Pressure Position [Left Arm] Sitting Lying Pulse Oximetry 96 95 96 Oxygen Delivery Method Room Air Room Air Sepsis Recent Fever Within 48 Hours No Sepsis New/Unexplained Change in Mental Status N/A Sepsis Action Taken by Nursing No Action Required 02/24/24 14:00 02/24/24 16:07 Temperature Temperature Source Pulse Rate 89 Pulse Rate [Apical] 93 H Respiratory Rate 18 Respiratory Effort / Characteristics Non-Labored Spontaneous Respiratory Depth Normal Blood Pressure Blood Pressure [Left Arm] 123/75 Blood Pressure Mean Blood Pressure Mean [Left Arm] 91 Blood Pressure Position [Left Arm] Lying Pulse Oximetry 96 Oxygen Delivery Method Room Air Sepsis Recent Fever Within 48 Hours Sepsis New/Unexplained Change in Mental Status Sepsis Action Taken by Nursing Laboratory Data 02/24/24 11:41 02/24/24 11:41 Lab Results 02/24/24 Range/Units 11:41 WBC 14.99 H (4.8-10.8) K/ul RBC 4.58 L (4.70-6.10) M/uL Hgb 13.8 L (14.0-18.0) g/dl Hct 41.0 L (42.0-52.0) % MCV 89.5 (80.0-100.0) fL MCH 30.1 (25.0-34.0) pg MCHC 33.7 (32.0-36.0) g/dL RDW Std Deviation 41.1 (36.4-46.3) fL RDW Coeff of Latasha 12.5 (11.5-14.5) % Plt Count 296 (130-400) K/uL MPV 10.9 (9.4-12.4) fL Immature Gran % (Auto) 0.7 % Neut % (Auto) 76.2 % Lymph % (Auto) 3.3 % [place] % (Auto) 19.5 % Eos % (Auto) 0.1 % Baso % (Auto) 0.2 % Neut # (Auto) 11.42 H (1.40-6.50) K/uL Lymph # (Auto) 0.49 L (1.20-3.40) K/uL [place] # (Auto) 2.93 H (0.11-0.59) K/uL Eos # (Auto) 0.01 (0.00-0.50) K/uL Baso # (Auto) 0.03 (0.00-0.20) K/uL Immature Gran # (Auto) 0.11 (0.01-0.20) K/uL Sodium 131 L (136-145) mmol/L Potassium 4.6 (3.5-5.1) mmol/L Chloride 98 (98-107) mmol/L Carbon Dioxide 23 (21-32) mmol/L Anion Gap 10 (3-11) BUN 19 (6-23) mg/dl Creatinine 0.98 (0.6-1.4) mg/dl Est Cr Clr Drug Dosing 42.8 ml/min Est GFR ( Amer) 78.9 ml/min Est GFR (Non-Af Amer) 68.1 ml/min BUN/Creatinine Ratio 19.4 (10-20) Glucose 127 H (70-99(Fasting)) mg/dl Lactate 1.8 (0.4-2.0) mmol/L Calcium 10.0 (8.6-10.3) mg/dl Total Bilirubin 1.2 H (0.2-1.0) mg/dl AST 13 (13-39) U/L ALT 8 (7-52) U/L Alkaline Phosphatase 70 (34-104) U/L Troponin I High Sens 5.2 (0-20) pg/ml Total Protein 8.6 H (6.0-8.3) gm/dl Albumin 5.0 (3.4-5.0) gm/dl Globulin 3.6 (2.5-4.0) gm/dl Albumin/Globulin Ratio 1.4 (0.9-2) Lipase < 3 L (11-82) U/L Administered Medications Lactated Ringer's (Lr) 1,000 mls @ 75 mls/hr IV .[id number] CARLOS Stop: 03/25/24 16:14 Last Admin: 02/24/24 16:54 Dose: 75 mls/hr Documented By: MIGUEL ANGEL Discontinued Medications Fentanyl Citrate (Fentanyl Citrate Pf 100 Mcg/2 Ml Vial) 25 mcg IV NOW STA Stop: 02/24/24 14:26 Last Admin: 02/24/24 14:29 Dose: 25 mcg Documented By: CC Sodium Chloride (Nss) 500 mls @ 999 mls/hr IV .Q31M ONE Stop: 02/24/24 12:16 Last Infusion: 02/24/24 13:36 Dose: Infused Documented By: Admin: 02/24/24 12:03 Dose: 999 mls/hr Documented By: MIGUEL ANGEL Piperacillin Sod/Tazobactam (Sod 4.5 gm/ Dextrose) 100 mls @ 200 mls/hr IV NOW ONE; Protocol Stop: 02/24/24 14:03 Last Infusion: 02/24/24 14:45 Dose: Infused Documented By: Admin: 02/24/24 14:06 Dose: 200 mls/hr Documented By: CC Ioversol (Optiray 320 100ml) 93 ml IV ONCE ONE Stop: 02/24/24 12:48 Last Admin: 02/24/24 12:48 Dose: 93 ml Documented By: SEJ Imaging Data Radiologist's Impression: Chest X-Ray 02/24/24 11:03 XR chest 1V portable CLINICAL HISTORY: Abdominal Pain COMPARISON STUDY: Chest CT and chest radiograph January 05, 2024. FINDINGS: Lung volumes are normal. There is no consolidation. Linear left basilar densities favor atelectasis. There is no pneumothorax or pleural effusion. Mild cardiomegaly. Mediastinal contours are normal. There is no evidence for pulmonary edema. Multiple healing left-sided rib fractures are noted. IMPRESSION: No acute cardiopulmonary findings. ACT 112: Negative or not required by law. Electronically signed by: Josef Hall M.D. 02/24/2024 12:24 PM Abdomen/Pelvis CT 02/24/24 11:45 CT OF THE ABDOMEN AND PELVIS WITH CONTRAST CLINICAL HISTORY: Lower abdominal pain. COMPARISON STUDY: CT of the abdomen and pelvis January 05, 2024. TECHNIQUE: Following IV administration of 93 mL of Optiray, axial images of the abdomen and pelvis were obtained from the lung bases to the proximal femurs. Images were reviewed in the axial, sagittal, and coronal planes. IV contrast was administered without complication. Automated exposure control was utilized for the study. A dose lowering technique was utilized adhering to the principles of ALARA. CT DOSE: 674.85 mGy.cm FINDINGS: Lung bases are unremarkable. No pneumatosis or portal venous gas is present. Subcentimeter hypodense hepatic lesions are unchanged. These favor cysts. Spleen, adrenal glands and kidneys are unremarkable. Pancreatic glandular atrophy is unchanged. The gallbladder is mildly distended. No pericholecystic infiltration. No evidence for a bowel obstruction. Extensive sigmoid diverticulosis is noted. There is a small amount of pneumoperitoneum. In addition, there is a 2.2 cm pocket of gas within the sigmoid mesentery on image 233 of 349. Associated moderate mesenteric stranding is noted. There is a small amount of fluid. The findings suggest a perforated sigmoid diverticulitis. Mild wall thickening of the adjacent small bowel loop is likely reactive. Suprapubic catheter is in place. Right inguinal hernia contains a small bowel loop without resultant bowel obstruction. A small amount of fluid within a left inguinal hernia is present. There is no hydronephrosis. IMPRESSION: 1. Small amount of pneumoperitoneum consistent with perforated hollow viscus. The sigmoid colon is the likely source and the findings are highly suggestive of perforated sigmoid diverticulitis. Small amount of gas within the sigmoid mesentery with moderate mesenteric and pericolonic stranding. No rim-enhancing fluid collection. 2. Mild gallbladder distention. No pericholecystic stranding to strongly suggest acute cholecystitis. ACT 112: Negative or not required by law. Electronically signed by: Josef Hall M.D. 02/24/2024 1:30 PM Discharge Plan Visit Data Chief Complaint: Hypotension Stated Complaint: LOW OXYGEN, SOB, LOW PULSE, CONSTIPATION ED Provider: Yadiel Toussaint Discharge Problem: Diverticulitis of intestine with perforation Patient Disposition: Admitted As Inpatient Discharge Instructions Interventions: ED Discharge Assessment Last Done: 02/24/24 17:27
[2024-02-24] MEDS: SODIUM CHLORIDE 0.9% 500 ML IV ONE (12:03)
[2024-02-24 12:08] LABS: Basophils # (auto) 0.03 K/uL (0.00-0.20); Basophils % (auto) 0.2 %; Eosinophils # (auto) 0.01 K/uL (0.00-0.50); Eosinophils % (auto) 0.1 %; Hemoglobin 13.8 g/dl (14.0-18.0); Immature Granulocytes # (auto) 0.11 K/uL (0.01-0.20); Immature Granulocytes % (auto) 0.7 %; Lymphocytes # (auto) 0.49 K/uL (1.20-3.40); Lymphocytes % (auto) 3.3 %; Mean Corpuscular Hemoglobin 30.1 pg (25.0-34.0); Mean Corpuscular Hgb Conc 33.7 g/dL (32.0-36.0); Mean Corpuscular Volume 89.5 fL (80.0-100.0); Mean Platelet Volume 10.9 fL (9.4-12.4); Monocytes # (auto) 2.93 K/uL (0.11-0.59); Monocytes % (auto) 19.5 %; Neutrophils # (auto) 11.42 K/uL (1.40-6.50); Neutrophils % (auto) 76.2 %; Platelet Count 296 K/uL (130-400); RDW Coefficient of Variation 12.5 % (11.5-14.5); RDW Standard Deviation 41.1 fL (36.4-46.3); Red Blood Count 4.58 M/uL (4.70-6.10); White Blood Count 14.99 K/ul (4.8-10.8)
[2024-02-24 12:22] LABS: Anion Gap 10 (3-11); BUN Creatinine Ratio 19.4 (10-20); Blood Urea Nitrogen 19 mg/dl (6-23); Carbon Dioxide 23 mmol/L (21-32); Chloride 98 mmol/L (98-107); Creatinine Clr Calc Pharmacy 42.8 ml/min; Est GFR (African American) 78.9 ml/min; Est GFR (Non-African American) 68.1 ml/min; Glucose 127 mg/dl (70-99(Fasting)); Potassium 4.6 mmol/L (3.5-5.1); Sodium 131 mmol/L (136-145)
--- NOTE | 2024-02-24 12:25 | XRay Report ---
XR chest 1V portable CLINICAL HISTORY: Abdominal Pain COMPARISON STUDY: Chest CT and chest radiograph January 05, 2024. FINDINGS: Lung volumes are normal. There is no consolidation. Linear left basilar densities favor ate lectasis. There is no pneumothorax or pleural effusion. Mild cardiomegaly. Mediastinal contours are n ormal. There is no evidence for pulmonary edema. Multiple healing left-sided rib fractures are noted. IMPRESSION: No acute cardiopulmonary findings. ACT 112: Negative or not required by law. Electronically signed by: Josef Hall M.D. 02/24/2024 12:24 PM
[2024-02-24 12:28] LABS: Troponin I High Sensitivity 5.2 pg/ml (0-20)
[2024-02-24 12:36] LABS: Alanine Aminotransferase 8 U/L (7-52); Albumin Globulin Ratio 1.4 (0.9-2); Alkaline Phosphatase 70 U/L (34-104); Aspartate Aminotransferase 13 U/L (13-39); Bilirubin,Total 1.2 mg/dl (0.2-1.0); Globulin 3.6 gm/dl (2.5-4.0); Lipase < 3 U/L (11-82); Total Protein 8.6 gm/dl (6.0-8.3)
[2024-02-24] MEDS: OPTIRAY 320 100ml IV ONE (12:48)
--- NOTE | 2024-02-24 13:32 | CT Scan Report ---
CT OF THE ABDOMEN AND PELVIS WITH CONTRAST CLINICAL HISTORY: Lower abdominal pain. COMPARISON STUDY: CT of the abdomen and pelvis January 05, 2024. TECHNIQUE: Following IV administration of 93 mL of Optiray, axial images of the abdomen and pelvis we re obtained from the lung bases to the proximal femurs. Images were reviewed in the axial, sagittal, and coronal planes. IV contrast was administered without complication. Automated exposure control wa s utilized for the study. A dose lowering technique was utilized adhering to the principles of ALARA . CT DOSE: 674.85 mGy.cm FINDINGS: Lung bases are unremarkable. No pneumatosis or portal venous gas is present. Subcentimeter hypodense hepatic lesions are unchanged. These favor cysts. Spleen, adrenal glands and kidneys are un remarkable. Pancreatic glandular atrophy is unchanged. The gallbladder is mildly distended. No perich olecystic infiltration. No evidence for a bowel obstruction. Extensive sigmoid diverticulosis is note d. There is a small amount of pneumoperitoneum. In addition, there is a 2.2 cm pocket of gas within t he sigmoid mesentery on image 233 of 349. Associated moderate mesenteric stranding is noted. There is a small amount of fluid. The findings suggest a perforated sigmoid diverticulitis. Mild wall thicken ing of the adjacent small bowel loop is likely reactive. Suprapubic catheter is in place. Right ingui nal hernia contains a small bowel loop without resultant bowel obstruction. A small amount of fluid w ithin a left inguinal hernia is present. There is no hydronephrosis. IMPRESSION: 1. Small amount of pneumoperitoneum consistent with perforated hollow viscus. The sigmoid colon is th e likely source and the findings are highly suggestive of perforated sigmoid diverticulitis. Small am ount of gas within the sigmoid mesentery with moderate mesenteric and pericolonic stranding. No rim-e nhancing fluid collection. 2. Mild gallbladder distention. No pericholecystic stranding to strongly suggest acute cholecystitis. ACT 112: Negative or not required by law. Electronically signed by: Josef Hall M.D. 02/24/2024 1:30 PM
[2024-02-24] MEDS: PIPERACILLIN/TAZOBACTAM 4.5 GM in DEXTROSE 5% MINI-B 100 ML IV ONE (14:06)
[2024-02-24] MEDS: fentaNYL citrate PF 100 MCG/2 ML VIAL IV STA (14:29)
--- NOTE | 2024-02-24 15:01 | Electrocardiogram Report ---
Test Reason : Blood Pressure : / mmHG Vent. Rate : 088 BPM Atrial Rate : 088 BPM P-R Int : 184 ms QRS Dur : 084 ms QT Int : 372 ms P-R-T Axes : 049 -23 062 degrees QTc Int : 450 ms Normal sinus rhythm Normal ECG When compared with ECG of 05-JAN-2024 15:46, Premature atrial complexes are no longer Present NM interval has decreased Confirmed by Edgar Pleitez ([id number]) on 02/24/2024 3:01:38 PM Referred By: Confirmed By:Edgar Pleitez
--- NOTE | 2024-02-24 15:12 | Surgery Consultation ---
Date of Consultation February 24, 2024 Assessment & Plan (1) Perforation of sigmoid colon due to diverticulitis: This is an 88yM with a PMH of COPD, HTN, TIA, prostate ca, supra-pubic catheter, who presents to the [facility] ED on 02/24/24 with complaints of abdominal pain that started this AM. In the ER a CT a/p was obtained that revealed a small amount of pneumoperitoneum consistent with perforated hollow viscus. The sigmoid colon is the likely source and the findings are highly suggestive of perforated sigmoid diverticulitis. Small amount of gas within the sigmoid mesentery with moderate mesenteric and pericolonic stranding. No rim-enhancing fluid collection. Today's labs show an elevated WBC 14.9, hgb 13.8, lactate 1.8, cr 0.9. Vitals are stable with HRs in the 90s and pt afebrile with stable blood pressure. On exam abdomen is soft, non distended, with generalized discomfort in abdomen worse in the LLQ. Findings consistent with perforated diverticulitis. Would admit to the hospital for supportive care with bowel rest, IVF hydration, and the initiation of IV abx. Discussed should his condition deteriorate the possibility of a colostomy and family/patient wish to avoid surgical intervention if possible. Hopefully patient will recover with conservative measures. Medicine will admit. We will follow closely. Supervising Physician Co-Signing Physician Notes I personally saw and evaluated the patient with Clover Melton PA-C and agree with the assessment and plan. 88 yo male with perforated diverticulitis His CT images and results were personally viewed and interpreted by myself He has some scattered pneumoperitoneum and a large walled off area in the pelvis He has no peritoneal signs and will try to treat him non-operatively Keep NPO, IV ABX History of Present Illness History of Present Illness This is an 88yM with a PMH of COPD, HTN, TIA, prostate ca, supra-pubic catheter, who presents to the [facility] ED on 02/24/24 with complaints of abdominal pain. Patient states his pain started in the lower abdomen around 7 this AM, rating it a 6-7/10 in severity. There was also some concern for hypotension. Due to his symptoms he presented to the ER for further evaluation. A CT a/p was obtained that revealed a small amount of pneumoperitoneum consistent with perforated hollow viscus. The sigmoid colon is the likely source and the findings are h ighly suggestive of perforated sigmoid diverticulitis. Small amount of gas within the sigmoid mesentery with moderate mesenteric and pericolonic stranding. No rim-enhancing fluid collection. The patient reports + chills, no fevers. He denies nausea/vomiting, or chest pain. Reports some SOB possibily 2/2 to abdominal pain with deep breaths. He states he had a colonoscopy 9 months ago, but last I see is from 2021 where he had findings of diverticulosis and a couple polyps removed. He states he had diverticulitis years ago and was admitted here without requiring surgical intervention. He last ate some izabella snap cookies and coffee this AM. Allergies Allergy/AdvReac Type Severity Reaction Status Date / Time pollen extracts Allergy Intermediate NASAL Verified 02/24/24 13:03 CONGESTION Home Medications Medication Instructions Recorded Confirmed Type aspirin 81 mg tablet,delayed 81 mg PO QAM #0 tabs 04/21/22 02/24/24 Rx release polyethylene glycol 3350 17 8.5 g PO DAILY PRN Constipation 05/09/22 02/24/24 History gram/dose oral powder (Miralax) lisinopril 10 mg tablet 10 mg PO DAILY 11/04/22 02/24/24 History meloxicam 15 mg tablet 15 mg PO DAILY PRN Pain 11/07/23 02/24/24 History Patient History Medical History [place] (hard of hearing) pt is VERY [place]--had some difficulty with PAT assessment Chronic anemia Arthritis History of prostate cancer 1993 s/p prostatectomy (per patient, unable to cath d/t scar tissue), no chemo/XRT Hx of vertigo Hypertension Tinea corporis Osteoarthritis Hearing deficit Surgical History Chronic suprapubic catheter History of cystoscopy multiple: last 05/09/21 @ [facility] Internal Urethrotomy (DVIU) and Incision of Bladder Neck (02/28/21): MAC at [facility] History of total knee replacement Left TKA (06/08/19): SAB at L3/L4 (x1 attempt) + PNB at [facility] H/O prostate biopsy History of colonoscopy History of tooth extraction History of cataract extraction R/L History of appendectomy Hx of left inguinal hernia repair Incarcerated hernia with bowel obstruction H/O prostatectomy Family History Father Prostate cancer Hypertension Mother Liver disease Brother Lung cancer Hypertension Other No family history of adverse response to anesthesia Social History Smoking Status: Never smoker Second Hand Exposure: No; Do You Dip or Chew Tobacco: No; Hx Alcohol Use: Yes Alcohol type: beer Hx Substance Use: No Preferred Language: Kyrgyz Communication Ability: Effective Visual Impairment: No Limitations Hearing Ability: Normal Retail And Promotions Coordinator Required: No Beliefs That Will Affect Care: None marital status: Current Living Situation: Alone current occupational status: retired Other Information That Helps Us Care for You: No Feels Safe at Home: Yes Safety Concerns: Feels Safe At This Time Diet: regular Assistive Devices: Glasses and Hearing Aid - Bilateral Review of Systems Constitutional: + chills and + fatigue; no fever Respiratory: + dyspnea Cardiovascular: no chest pain Gastrointestinal: + abdominal pain, + bloating and + const ipation; no nausea and no vomiting Genitourinary: no problem reported Physical Exam Physical Exam: awake, no distress Respiratory: normal respiratory effort Cardiovascular: Rate/Rhythm: regular rate Gastrointestinal (Abdomen): Inspection/Auscultation: abdomen not distended Percussion/Palpation: + abdomen tender (generalized discomfort, but worse in b/l lower abdomen greatest in LLQ) and abdomen soft; abdomen not rigid + suprapubic catheter Results & Data Vital Signs (Past 12 Hours) Vital Signs Temp Pulse Pulse Resp BP BP Pulse Ox 02/24/24 14:00 93 H 18 123/75 96 02/24/24 12:58 99 H 19 158/89 H 96 02/24/24 11:23 91 H 18 142/70 H 95 02/24/24 10:56 97.9 F 89 18 109/67 96 O2 Del Method 02/24/24 14:00 Room Air 02/24/24 12:58 Room Air 02/24/24 11:23 Room Air 02/24/24 10:[address] OF THE ABDOMEN AND PELVIS WITH CONTRAST CLINICAL HISTORY: Lower abdominal pain. COMPARISON STUDY: CT of the abdomen and pelvis January 05, 2024. TECHNIQUE: Following IV administration of 93 mL of Optiray, axial images of the abdomen and pelvis were obtained from the lung bases to the proximal femurs. Images were reviewed in the axial, sagittal, and coronal planes. IV contrast was administered without complication. Automated exposure control was utilized for the study. A dose lowering technique was utilized adhering to the principles of ALARA. CT DOSE: 674.85 mGy.cm FINDINGS: Lung bases are unremarkable. No pneumatosis or portal venous gas is present. Subcentimeter hypodense hepatic lesions are unchanged. These favor cysts. Spleen, adrenal glands and kidneys are unremarkable. Pancreatic glandular atrophy is unchanged. The gallbladder is mildly distended. No pericholecystic infiltration. No evidence for a bowel obstruction. Extensive sigmoid diverticulosis is noted. There is a small amount of pneumoperitoneum. In addition, there is a 2.2 cm pocket of gas within the sigmoid mesentery on image 233 of 349. Associated moderate mesenteric stranding is noted. There is a small amount of fluid. The findings suggest a perforated sigmoid diverticulitis. Mild wall thickening of the adjacent small bowel loop is likely reactive. Suprapubic catheter is in place. Right inguinal hernia contains a small bowel loop without resultant bowel obstruction. A small amount of fluid within a left inguinal hernia is present. There is no hydronephrosis. IMPRESSION: 1. Small amount of pneumoperitoneum consistent with perforated hollow viscus. The sigmoid colon is the likely source and the findings are highly suggestive of perforated sigmoid diverticulitis. Small amount of gas within the sigmoid m esentery with moderate mesenteric and pericolonic stranding. No rim-enhancing fluid collection. 2. Mild gallbladder distention. No pericholecystic stranding to strongly suggest acute cholecystitis. ACT 112: Negative or not required by law. Electronically signed by: Josef Hall M.D. 02/24/2024 1:30 PM PG Care Time/CCT Total # of Minutes Spent Total Time Spent with Patient: Total time spent is greater than 50% in coordination of care (as documented) at patient's floor/unit and/or counseling patient: Coding Level of Care Code 56217 INT INP/OBS CARE 3/75MIN Diagnoses Perforation of sigmoid colon due to diverticulitis K57.20
[2024-02-24] MEDS ORDERED: ONDANSETRON INJ 2 MG/ML 2 ML VIAL IV PRN (16:13)
--- NOTE | 2024-02-24 16:36 | History & Physical Report ---
Date of Service February 24, 2024 Assessment & Plan (1) Perforation of sigmoid colon due to diverticulitis: Plan: recurrent diverticulitis with perforation surgery input appreciated colonoscopy in the last year no cancer IV fluids IV antibiotics ice chips pain control (2) COPD (chronic obstructive pulmonary disease): Plan: stable no signs of exacerbation (3) Prostate cancer: Plan: chronic suprapubic cath (4) Hypertension: Plan: stable continue Lisinopril History of Present Illness Chief Complaint: abdominal pain Primary Care Provider: Alexandra Ellis DO This is an 88yM with a PMH of COPD, HTN, TIA, prostate ca, supra-pubic catheter, who presents to the [facility] ED on 02/24/24 with complaints of abdominal pain. Patient states his pain started in the lower abdomen around 7 this AM, rating it a 6-7/10 in severity, reports having chills, denies nausea, vomiting. A CT a/p was obtained that revealed a small amount of pneumoperitoneum consistent with perforated hollow viscus. The sigmoid colon is the likely source and the findings are highly suggestive of perforated sigmoid diverticulitis. Small amount of gas within the sigmoid mesentery with moderate mesenteric and pericolonic stranding. No rim-enhancing fluid collection. He states he had a colonoscopy 9 months ago, but last I see is from 2021 where he had findings of diverticulosis and a couple polyps removed. He states he had diverticulitis years ago and was admitted here without requiring surgical intervention. He was started on IV antibiotics, received Fentanyl, reports his pain 2/10. He has suprapubic cath Allergies Allergy/AdvReac Type Severity Reaction Status Date / Time pollen extracts Allergy Intermediate NASAL Verified 02/24/24 13:03 CONGESTION Home Medications Medication Instructions Recorded Confirmed Type aspirin 81 mg tablet,delayed 81 mg PO QAM #0 tabs 04/21/22 02/24/24 Rx release polyethylene glycol 3350 17 8.5 g PO DAILY PRN Constipation 05/09/22 02/24/24 History gram/dose oral powder (Miralax) lisinopril 10 mg tablet 10 mg PO DAILY 11/04/22 02/24/24 History meloxicam 15 mg tablet 15 mg PO DAILY PRN Pain 11/07/23 02/24/24 History Past Med/Surg History Problem List (Updated 02/24/24 @ 15:41 by Clover Melton PA-C) Perforation of sigmoid colon due to diverticulitis Osteoarthritis of left shoulder COPD (chronic obstructive pulmonary disease) Ex-smoker Pulmonary nodule Tubular adenoma LLQ abdominal pain Constipation 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 Knight Medical History [place] (hard of hearing) pt is VERY [place]--had some difficulty with PAT assessment Chronic anemia Arthritis History of prostate cancer 1993 s/p prostatectomy (per patient, unable to cath d/t scar tissue), no chemo/XRT Hx of vertigo Hypertension Tinea corporis Osteoarthritis Hearing deficit Surgical History Chronic suprapubic catheter History of cystoscopy multiple: last 05/09/21 @ [facility] Internal Urethrotomy (DVIU) and Incision of Bladder Neck (02/28/21): MAC at [facility] History of total knee replacement Left TKA (06/08/19): SAB at L3/L4 (x1 attempt) + PNB at [facility] H/O prostate biopsy History of colonoscopy History of tooth extraction History of cataract extraction R/L History of appendectomy Hx of left inguinal hernia repair Incarcerated hernia with bowel obstruction H/O prostatectomy Family History Father Prostate cancer Hypertension Mother Liver disease Brother Lung cancer Hypertension Other No family history of adverse response to anesthesia Social History Smoking Status: Former smoker Second Hand Exposure: No; Do You Dip or Chew Tobacco: No; Hx Alcohol Use: Yes Alcohol type: wine Hx Substance Use: No Preferred Language: Cuban Communication Ability: Effective Visual Impairment: No Limitations Hearing Ability: Normal Product Representative Required: No Beliefs That Will Affect Care: None marital status: Current Living Situation: Spouse current occupational status: retired Feels Safe at Home: Yes Diet: regular Assistive Devices: Denture - Upper, Denture - Lower, Glasses and Hearing Aid - Bilateral Review of Systems Review of Systems: All systems reviewed & are unremarkable except as noted in Subjective Physical Exam Physical Exam: head atraumatic neck supple chest CTA b/l heart S1S2 regular abdomen tender in the lower abdomen, BS decreased, not distended extremities no swelling neuro AAO times 3 Results & Data Results & Data Vital Signs (Past 12 Hours) Vital Signs Temp Pulse Pulse Resp BP BP Pulse Ox 02/24/24 16:07 89 02/24/24 14:00 93 H 18 123/75 96 02/24/24 12:58 99 H 19 158/89 H 96 02/24/24 11:23 91 H 18 142/70 H 95 02/24/24 10:56 36.6 C 89 18 109/67 96 O2 Del Method 02/24/24 16:07 02/24/24 14:00 Room Air 02/24/24 12:58 Room Air 02/24/24 11:23 Room Air 02/24/24 10:56 Laboratory Results Abnormal lab results 02/24/24 Range/Units 11:41 WBC 14.99 H (4.8-10.8) K/ul RBC 4.58 L (4.70-6.10) M/uL Hgb 13.8 L (14.0-18.0) g/dl Hct 41.0 L (42.0-52.0) % Neut # (Auto) 11.42 H (1.40-6.50) K/uL Lymph # (Auto) 0.49 L (1.20-3.40) K/uL Green # (Auto) 2.93 H (0.11-0.59) K/uL Sodium 131 L (136-145) mmol/L Glucose 127 H (70-99(Fasting)) mg/dl Total Bilirubin 1.2 H (0.2-1.0) mg/dl Total Protein 8.6 H (6.0-8.3) gm/dl Lipase < 3 L (11-82) U/L Diagnostic Findings Chest X-Ray 02/24/24 11:03 XR chest 1V portable CLINICAL HISTORY: Abdominal Pain COMPARISON STUDY: Chest CT and chest radiograph January 05, 2024. FINDINGS: Lung volumes are normal. There is no consolidation. Linear left basilar densities favor atelectasis. There is no pneumothorax or pleural effu jonah. Mild cardiomegaly. Mediastinal contours are normal. There is no evidence for pulmonary edema. Multiple healing left-sided rib fractures are noted. IMPRESSION: No acute cardiopulmonary findings. ACT 112: Negative or not required by law. Electronically signed by: Josef Hall M.D. 02/24/2024 12:24 PM Abdomen/Pelvis CT 02/24/24 11:45 CT OF THE ABDOMEN AND PELVIS WITH CONTRAST CLINICAL HISTORY: Lower abdominal pain. COMPARISON STUDY: CT of the abdomen and pelvis January 05, 2024. TECHNIQUE: Following IV administration of 93 mL of Optiray, axial images of the abdomen and pelvis were obtained from the lung bases to the proximal femurs. Images were reviewed in the axial, sagittal, and coronal planes. IV contrast was administered without complication. Automated exposure control was utilized for the study. A dose lowering technique was utilized adhering to the principles of ALARA. CT DOSE: 674.85 mGy.cm FINDINGS: Lung bases are unremarkable. No pneumatosis or portal venous gas is present. Subcentimeter hypodense hepatic lesions are unchanged. These favor cysts. Spleen, adrenal glands and kidneys are unremarkable. Pancreatic glandular atrophy is unchanged. The gallbladder is mildly distended. No pericholecystic infiltration. No evidence for a bowel obstruction. Extensive sigmoid diverticulosis is noted. There is a small amount of pneumoperitoneum. In addition, there is a 2.2 cm pocket of gas within the sigmoid mesentery on image 233 of 349. Associated moderate mesenteric stranding is noted. There is a small amount of fluid. The findings suggest a perforated sigmoid diverticulitis. Mild wall thickening of the adjacent small bowel loop is likely reactive. Suprapubic catheter is in place. Right inguinal hernia contains a small bowel loop without resultant bowel obstruction. A small amount of fluid within a left inguinal hernia is present. There is no hydronephrosis. IMPRESSION: 1. Small amount of pneumoperitoneum consistent with perforated hollow viscus. The sigmoid colon is the likely source and the findings are highly suggestive of perforated sigmoid diverticulitis. Small amount of gas within the sigmoid mesentery with moderate mesenteric and pericolonic stranding. No rim-enhancing fluid collection. 2. Mild gallbladder distention. No pericholecystic stranding to strongly suggest acute cholecystitis. ACT 112: Negative or not required by law. Electronically signed by: Josef Hall M.D. 02/24/2024 1:30 PM PG Care Time/CCT Total # of Minutes Spent Total Time Spent with Patient: Total time spent is greater than 50% in coordination of care (as documented) at patient's floor/unit and/or counseling patient: Coding Level of Care Code 63474 INT INP/OBS CARE 3/75MIN Diagnoses Perforation of sigmoid colon due to diverticulitis K57.20 COPD (chronic obstructive pulmonary disease) J44.9 Prostate cancer C61 Hypertension I10
[2024-02-24] MEDS: LACTATED RINGER'S 1,000 ML IV SCH (16:54)
[2024-02-24] MEDS: PIPERACILLIN/TAZOBACTAM 4.5 GM in DEXTROSE 5% MINI-B 100 ML IV SCH (18:09)
[2024-02-24] MEDS: ACETAMINOPHEN 325 MG TAB PO PRN (20:42)
[2024-02-24] MEDS: HEPARIN SOD 5,000 UNIT/0.5 ML VIAL SQ SCH (22:02)
[2024-02-24 22:36] LABS: Appearance Urine Cloudy (Clear); Bacteria Urine Automated 4+ (None Seen); Bilirubin Urine Negative (Negative); Blood Urine Negative (Negative); Cast Urine Automated >20 /lpf (0-2); Color Urine Yellow; Glucose Urine UA Negative (Negative); Ketones Urine Trace (Negative); Leukocyte Esterase Urine 2+ (Negative); Nitrite Urine Positive (Negative); Protein Urine 1+ (Negative); Specific Gravity Urine > 1.045 (1.000-1.030); Urobilinogen Urine Negative (Negative); pH Urine >= 9.0 (4.5-7.5)
[2024-02-24 22:47] LABS: Triple Phosphate Crystal Urine Present (None Prsent)
[2024-02-24 22:50] LABS: Amorphous Sediment Urine Present (None Prsent)
[2024-02-25] MEDS: SODIUM CHLORIDE 0.9% 500 ML IV SCH (00:06)
[2024-02-25] MEDS: ACETAMINOPHEN 1,000 MG/100 ML VIAL IV PRN (03:45)
--- NOTE | 2024-02-25 08:08 | Surgery Progress Note ---
Date of Service February 25, 2024 Assessment & Plan (1) Diverticulitis of intestine with perforation: Plan: Pt here w/ perforated sigmoid diverticulitis Labs are pending this AM, yesterday WBC was 14.9. Afebrile overnight, some soft pressures running 90/50s. HRs 70s Pt reports some improvement in pain, had a looser BM this AM. no flatus Abdomen soft with generalized discomfort, worse in b/l lower abdomen Continue on IV abx for treatment, okay for ice/small sips of water Hopeful for ongoing improvement with supportive care, no indications for acute surgical intervention at this time Will follow closely Admission and Anticipated Discharge Date Admission Date: February 24, 2024 Supervising Physician Co-Signing Physician Notes I personally saw and evaluated the patient with Clover Melton PA-C and agree with the assessment and plan. 88 yo male with perforated diverticulitis He remains clinically stable hemodynamically His WBC did go up to 21 which is concerning Abdominal exam remains without peritoneal signs Aggressive IVF resuscitation, follow abdominal exam If he worsens clinically, he would likely need exploration with colostomy creation Subjective Patient feeling a bit better. Reports some abdominal soreness, but improved since admission. He had a loose BM this AM, but not passing much gas. No nausea/vomiting. Physical Exam Physical Exam: awake, no distress Gastrointestinal (Abdomen): Inspection/Auscultation: abdomen not distended Percussion/Palpation: + abdomen tender (generalized discomfort but worse in b/l lower abdomen ) and abdomen soft Results & Data Vital Signs (Past 12 Hours) Vital Signs Temp Pulse Pulse Resp BP BP Pulse Ox 02/25/24 07:52 97.5 F L 76 18 110/53 L 96 02/25/24 03:51 97.9 F 79 18 90/50 L 91 02/24/24 23:33 76 02/24/24 23:28 97.9 F 76 18 91/47 L 95 02/24/24 23:00 75 18 90/52 L 94 02/24/24 20:16 79 18 94/53 L 94 O2 Del Method 02/25/24 07:52 Room Air 02/25/24 03:51 Room Air 02/24/24 23:33 02/24/24 23:28 Room Air 02/24/24 23:00 Room Air 02/24/24 20:16 Room Air PG Care Time/CCT Total # of Minutes Spent Total Time Spent with Patient: Total time spent is greater than 50% in coordination of care (as documented) at patient's floor/unit and/or counseling patient: Coding Level of Care Code 78716 SUB INP/OBS CARE Diagnoses Diverticulitis of intestine with perforation K57.80
[2024-02-25 08:31] LABS: Hematocrit (blood only) 33.3 % (42.0-52.0); Hemoglobin 11.2 g/dl (14.0-18.0); Mean Corpuscular Hemoglobin 30.5 pg (25.0-34.0); Mean Corpuscular Hgb Conc 33.6 g/dL (32.0-36.0); Mean Corpuscular Volume 90.7 fL (80.0-100.0); Platelet Count 228 K/uL (130-400); RDW Coefficient of Variation 13.1 % (11.5-14.5); RDW Standard Deviation 43.2 fL (36.4-46.3); Red Blood Count 3.67 M/uL (4.70-6.10); White Blood Count 21.52 K/ul (4.8-10.8)
[2024-02-25] MEDS: lisinopril 10 MG TAB PO SCH (08:38)
[2024-02-25 08:53] LABS: Albumin Globulin Ratio 1.3 (0.9-2); Albumin Level 3.5 gm/dl (3.4-5.0); BUN Creatinine Ratio 22.8 (10-20); Bilirubin,Total 1.1 mg/dl (0.2-1.0); Calcium 8.1 mg/dl (8.6-10.3); Creatinine Clr Calc Pharmacy 36.8 ml/min; Est GFR (African American) 65.7 ml/min; Est GFR (Non-African American) 56.7 ml/min; Globulin 2.6 gm/dl (2.5-4.0); Potassium 4.1 mmol/L (3.5-5.1); Total Protein 6.1 gm/dl (6.0-8.3)
[2024-02-25 09:02] LABS: Basophils # (auto) 0.03 K/uL (0.00-0.20); Basophils % (auto) 0.1 %; Echinocytes 1+; Eosinophils # (auto) 0.01 K/uL (0.00-0.50); Immature Granulocytes # (auto) 0.36 K/uL (0.01-0.20); Immature Granulocytes % (auto) 1.7 %; Lymphocytes # (auto) 0.86 K/uL (1.20-3.40); Monocytes % (auto) 15.8 %; Neutrophils # (auto) 16.86 K/uL (1.40-6.50); Neutrophils % (auto) 78.4 %
[2024-02-25] MEDS: FAMOTIDINE 20MG IV PUSH 20 MG/5 ML SYR IV SCH (10:05)
--- NOTE | 2024-02-25 12:32 | Hospitalist Progress Note ---
Date of Service February 25, 2024 Assessment & Plan (1) Perforation of sigmoid colon due to diverticulitis: Plan: recurrent diverticulitis, now with perforation . Continue intravenous Zosyn, day 2. N.p.o. with IV fluids. Appreciate general surgery consultation and recommendations. Hopefully surgery can be avoided. (2) COPD (chronic obstructive pulmonary disease): Plan: stable. Continue current medical management (3) Prostate cancer: Plan: chronic suprapubic catheter in place. (4) Hypertension: Plan: stable. Continue Lisinopril Plan To be determined Admission and Anticipated Discharge Date Admission Date: February 24, 2024 Subjective Alert and oriented. No distress. Surgery entry noted. Daughter is at the bedside. Will try to avoid surgical intervention. He remains on intravenous Zosyn therapy, day 2. White count jumped to 21,000 today, February 24, but no significant change in symptoms. If white count rises further tomorrow, February 17, will repeat abdominal CT scan. Review of Systems 2 Review of Systems: Constitutional-no fever or chills ENT-no blurred vision, no double vision, no epistaxis, no sore throat Respiratory-no cough, no wheezing, no shortness of breath Cardiac-no palpitations, no chest pain, no syncope GI-no nausea, vomiting, diarrhea, melena, hematochezia. He does have abdominal discomfort -no urinary retention, no urinary incontinence, no dysuria, no hematuria Musculoskeletal-no joint pain, no muscle tenderness Skin-no bruising, no rashes, no pruritus Neuro-no isolated weakness, no paresthesia, no weakness Psych-no depression, no anxiety Physical Exam 2 Physical Exam: General-alert and oriented x3, no fever, no chills HEENT-head atraumatic and normocephalic, pupils equal and reactive to light, extraocular muscles intact Neck-no lymphadenopathy or thyromegaly, trachea midline Chest-clear to auscultation. No rales, wheezing or rhonchi Cardiac-regular rate and rhythm, normal S1 and S2 Abdomen-normal bowel sounds, no hepatosplenomegaly. Tender to palpation in the lower midline. No masses. No rebound or guarding Extremities-no cyanosis, clubbing, or edema Neuro-cranial nerves II through XII intact, motor and sensory function within normal limits, strength symmetrical, no focal deficits Psych-normal affect, normal mood Results & Data Results & Data Vital Signs (Past 12 Hours) Vital Signs Temp Pulse Resp BP Pulse Ox O2 Del Method 02/25/24 11:24 36.6 C 77 18 101/56 L 94 Room Air 02/25/24 07:52 36.4 C L 76 18 110/53 L 96 Room Air 02/25/24 03:51 36.6 C 79 18 90/50 L 91 Room Air Laboratory Results 02/25/24 07:43 02/25/24 07:43 PG Care Time/CCT Total # of Minutes Spent Total Time Spent with Patient: Total time spent is greater than 50% in coordination of care (as documented) at patient's floor/unit and/or counseling patient: Coding Level of Care Code 66488 SUB INP/OBS CARE 3/50MIN Diagnoses Perforation of sigmoid colon due to diverticulitis K57.20 COPD (chronic obstructive pulmonary disease) J44.9 Prostate cancer C61 Hypertension I10
--- NOTE | 2024-02-25 14:33 | Communication Note ---
Date of Service: February 25, 2024 Patient reports feeling fine. He remains with abdominal pain and discomfort to palpation, but his pain is improved since admission. Abdominal exam unchanged from this AM. No nausea/vomiting. Vitals remain stable. + urine output from supra-pubic tube catheter. He and daughter are in the room and some discussions were had regarding that if he does not improve with supportive care/conservative measures would he be agreeable to surgical intervention which would include exlap, partial colon resection, and colostomy formation. He and his daughter would like to discuss this further as he is unsure whether or not he would want surgery. He has been made aware of the risks that should he get to the point where surgery is necessary and he refuses that he would likely become septic and be the cause of his demise.
[2024-02-25] MEDS ORDERED: STAT IV Infusion **Titration per Protocol STA ×2 (16:52→21:08)
[2024-02-25] MEDS: dilTIAZem HCl 5 MG/ML 5 ML VIAL IV STA (17:13)
[2024-02-25] MEDS: SODIUM CHLORIDE 0.9% 250 ML IV ONE ×2 (17:21→18:22)
[2024-02-25] MEDS: dilTIAZem HCL 125 MG in DEXTROSE 5% 100 ML IV SCH (17:40)
[2024-02-25] MEDS: HEPARIN SOD 5,000 UNIT/0.5 ML VIAL SQ SCH (17:51)
[2024-02-25] MEDS: DIGOXIN 500 MCG in SYRINGE 8 ML IV STA (18:47)
[2024-02-25] MEDS ORDERED: 0.2 MICRON FILTER SET 1 EACH IV STA (21:08)
[2024-02-25] MEDS ORDERED: AMIODARONE IV BOLUS & DRIP IV STA (21:08)
[2024-02-25] MEDS: AMIODARONE / D5W 150 MG/100 ML BAG IV STA (21:25)
[2024-02-25] MEDS: AMIODARONE / D5W 360 MG/200 ML BAG IV ONE (21:39)
[2024-02-25 21:58] LABS: A calco-baum cmplx NotReported Not Detected (NotDetected); Bact fragilis Not Reported Not Detected (NotDetected); Blood Culture Id Panel See PCR Comment (NotDetected); C auris Not Reported Not Detected (NotDetected); Calbicans Not Reported Not Detected (NotDetected); Candida glabrata Not Reported Not Detected (NotDetected); Candida krusei Not Reported Not Detected (NotDetected); Cneoformans/gatti Not Reported Not Detected (NotDetected); Cparapsilosis Not Reported Not Detected (NotDetected); E cloacae compx Not Reported Not Detected (NotDetected); Efaecalis Not Reported Not Detected (NotDetected); Efaecium Not Reported Not Detected (NotDetected); Enterobacterales Not Reported Not Detected (NotDetected); Escherichia coli Not Reported Not Detected (NotDetected); H influenzae Not Reported Not Detected (NotDetected); K aerogenes Not Reported Not Detected (NotDetected); Koxytoca Not Reported Not Detected (NotDetected); Kpneumoniae grp Not Reported Not Detected (NotDetected); Lmonocyt Not Reported Not Detected (NotDetected); N meningitidis Not Reported Not Detected (NotDetected); P aeruginosa Not Reported Not Detected (NotDetected); Proteus spp Not Reported Not Detected (NotDetected); Salmonella spp Not Reported Not Detected (NotDetected); Staph lugdunensis Not Reported Not Detected (NotDetected); Staph spp. Not Reported DETECTED (NotDetected); Staphaureus Not Reported Not Detected (NotDetected); Staphepi Not Reported Not Detected (NotDetected); Stenmaltophilia Not Reported Not Detected (NotDetected); Strep agal(GrpB) Not Reported Not Detected (NotDetected); Strep pneum Not Reported Not Detected (NotDetected); Strep pyog (GrpA) Not Reported Not Detected (NotDetected); Strep spp Not Reported DETECTED (NotDetected); Streptococcus spp DETECTED (NotDetected)
[2024-02-25] MEDS: DIGOXIN 250 MCG in SYRINGE 9 ML IV ONE (22:23)
[2024-02-25 22:30] LABS: Staphylococcus spp. DETECTED (NotDetected)
[2024-02-26] MEDS: AMIODARONE / D5W 360 MG/200 ML BAG IV SCH (03:08)
[2024-02-26 06:45] LABS: Basophils # (auto) 0.02 K/uL (0.00-0.20); Basophils % (auto) 0.1 %; Hematocrit (blood only) 31.7 % (42.0-52.0); Hemoglobin 10.8 g/dl (14.0-18.0); Immature Granulocytes # (auto) 0.24 K/uL (0.01-0.20); Immature Granulocytes % (auto) 1.4 %; Lymphocytes # (auto) 0.56 K/uL (1.20-3.40); Lymphocytes % (auto) 3.2 %; Mean Corpuscular Hemoglobin 30.2 pg (25.0-34.0); Mean Corpuscular Hgb Conc 34.1 g/dL (32.0-36.0); Mean Corpuscular Volume 88.5 fL (80.0-100.0); Mean Platelet Volume 11.3 fL (9.4-12.4); Monocytes # (auto) 2.05 K/uL (0.11-0.59); Monocytes % (auto) 11.6 %; Neutrophils # (auto) 14.74 K/uL (1.40-6.50); Neutrophils % (auto) 83.7 %; Platelet Count 215 K/uL (130-400); RDW Coefficient of Variation 13.2 % (11.5-14.5); RDW Standard Deviation 43.2 fL (36.4-46.3); Red Blood Count 3.58 M/uL (4.70-6.10); White Blood Count 17.61 K/ul (4.8-10.8)
[2024-02-26 07:34] LABS: Albumin Globulin Ratio 1.1 (0.9-2); Albumin Level 3.3 gm/dl (3.4-5.0); Bilirubin,Total 0.6 mg/dl (0.2-1.0); Calcium 8.2 mg/dl (8.6-10.3); Creatinine Clr Calc Pharmacy 49.9 ml/min; Est GFR (Non-African American) 77.6 ml/min; Globulin 2.9 gm/dl (2.5-4.0); Potassium 3.8 mmol/L (3.5-5.1); Total Protein 6.2 gm/dl (6.0-8.3)
--- NOTE | 2024-02-26 07:52 | Surgery Progress Note ---
Date of Service February 26, 2024 Assessment & Plan (1) Diverticulitis of intestine with perforation: Plan: Pt here w/ perforated sigmoid diverticulitis Labs show WBC 17 (21), Hbg 10.8, K 3.8, Cr 0.8. Vitals stable. Went into afib yesterday evening, now HRs 70s with stable pressures. remains afebrile He does reports some improvement in pain, however is noting to me some nausea and gas-like discomfort this AM. He also states he is hungry Abdomen soft with generalized discomfort, worse in b/l lower abdomen Continue on IV abx. okay for ice/small sips of water only Hopeful for ongoing improvement with supportive care, no indications for acute surgical intervention at this time Will follow closely. Pt/family discussing on whether or not they would even agree to surgery if it becomes indicated [facility] covering the wknd Admission and Anticipated Discharge Date Admission Date: February 24, 2024 Supervising Physician Co-Signing Physician Notes I personally saw and evaluated the patient with Clover Melton PA-C and agree with the assessment and plan. 88 yo male with perforated diverticulitis He remains clinically stable hemodynamically His WBC is 17 from 21 yesterday Abdominal exam remains without peritoneal signs, and is improved today If he spikes a fever or worsens, consideration can be give to repeating CT A/P to see if any abscesses have formed that could be drained percutaneously Will try to get him through this without an operation, but he understands this is still a possibility if he worsens [facility] to cover the weekend Subjective Patient reports abdominal pain feels better, but that he is experiencing some gas and nausea sensations. Reports hunger. denies flatus. 3 BMs yesterday. Physical Exam Physical Exam: awake, no distress Respiratory: normal respiratory effort Gastrointestinal (Abdomen): Percussion/Palpation: + abdomen tender (generalized discomfort to palpation, worse in bilateral lower abdomen ) and abdomen soft Results & Data Vital Signs (Past 12 Hours) Vital Signs Temp Pulse Pulse Resp BP BP Pulse Ox 02/26/24 04:30 72 18 92 02/26/24 04:07 98.2 F 69 18 139/71 91 02/25/24 23:48 70 02/25/24 22:59 97.9 F 113 H 16 97/57 L 91 02/25/24 22:23 118 H 02/25/24 22:00 107 H 100/56 L 02/25/24 21:30 112 H 92/57 L 02/25/24 20:00 112 H 20 100/65 O2 Del Method 02/26/24 04:30 Room Air 02/26/24 04:07 Room Air 02/25/24 23:48 02/25/24 22:59 Room Air 02/25/24 22:23 02/25/24 22:00 02/25/24 21:30 02/25/24 20:00 Room Air PG Care Time/CCT Total # of Minutes Spent Total Time Spent with Patient: Total time spent is greater than 50% in coordination of care (as documented) at patient's floor/unit and/or counseling patient: Coding Level of Care Code 59045 SUB INP/OBS CARE 09/24MIN Diagnoses Diverticulitis of intestine with perforation K57.80
--- NOTE | 2024-02-26 10:21 | Electrocardiogram Report ---
Test Reason : Blood Pressure : / mmHG Vent. Rate : 069 BPM Atrial Rate : 069 BPM P-R Int : 212 ms QRS Dur : 098 ms QT Int : 432 ms P-R-T Axes : 023 -12 029 degrees QTc Int : 462 ms Sinus rhythm with 1st degree A-V block Otherwise normal ECG When compared with ECG of 25-FEB-2024 16:48, Sinus rhythm has replaced Atrial fibrillation Vent. rate has decreased BY 63 BPM Confirmed by Edgar Pleitez ([id number]) on 02/26/2024 10:21:02 AM Referred By: Alexandra Ellis Confirmed By:Edgar Pleitez
--- NOTE | 2024-02-26 12:53 | Hospitalist Progress Note ---
Date of Service February 26, 2024 Assessment & Plan (1) Perforation of sigmoid colon due to diverticulitis: Plan: recurrent diverticulitis, now with perforation. Continue intravenous Zosyn, day 3. N.p.o. with IV fluids. Appreciate general surgery consultation and recommendations. Hopefully surgery can be avoided. (2) COPD (chronic obstructive pulmonary disease): Plan: stable. Continue current medical management (3) Paroxysmal atrial fibrillation: Plan: He developed atrial fibrillation with rapid ventricular rate and hypotension yesterday, February 24. He has since converted back to normal sinus rhythm. Amiodarone drip was discontinued today, February 25. Lisinopril is on hold. Cardiac echo report is pending (4) Prostate cancer: Plan: chronic suprapubic catheter in place. (5) Hypertension: Plan: Hypotensive with atrial fibrillation which has now resolved. Lisinopril remains on hold Plan To be determined Admission and Anticipated Discharge Date Admission Date: February 24, 2024 Subjective Alert and oriented. He developed atrial fibrillation with rapid ventricular rate last evening, February 24. He has since converted back to normal sinus rhythm and the amiodarone drip has been discontinued. Cardiac echo report pending. Free T4 level is normal and free T3 level is slightly low. He is not thyrotoxic. Surgery entry noted. Lisinopril has been placed on hold due to low blood pressure associated with atrial fibrillation yesterday. Will repeat abdomen CT scan tomorrow, February 26. Continue Zosyn, day 3. Review of Systems 2 Review of Systems: Constitutional-no fever or chills ENT-no blurred vision, no double vision, no epistaxis, no sore throat Respiratory-no cough, no wheezing, no shortness of breath Cardiac-no palpitations, no chest pain, no syncope GI-no nausea, vomiting, diarrhea, melena, hematochezia. He does have abdominal discomfort -no urinary retention, no urinary incontinence, no dysuria, no hematuria Musculoskeletal-no joint pain, no muscle tenderness Skin-no bruising, no rashes, no pruritus Neuro-no isolated weakness, no paresthesia, no weakness Psych-no depression, no anxiety Physical Exam 2 Physical Exam: General-alert and oriented x3, no fever, no chills HEENT-head atraumatic and normocephalic, pupils equal and reactive to light, extraocular muscles intact Neck-no lymphadenopathy or thyromegaly, trachea midline Chest-clear to auscultation. No rales, wheezing or rhonchi Cardiac-regular rate and rhythm, normal S1 and S2 Abdomen-normal bowel sounds, no hepatosplenomegaly. Tender to palpation in the lower midline. No masses. No rebound or guarding Extremities-no cyanosis, clubbing, or edema Neuro-cranial nerves II through XII intact, motor and sensory function within normal limits, strength symmetrical, no focal deficits Psych-normal affect, normal mood Results & Data Results & Data Vital Signs (Past 12 Hours) Vital Signs Temp Pulse Resp BP BP Pulse Ox O2 Del Method 02/26/24 11:54 36.4 C L 69 20 145/71 H 94 Room Air 02/26/24 08:06 36.9 C 69 20 114/58 L Room Air 02/26/24 04:30 72 18 92 Room Air 02/26/24 04:07 36.8 C 69 18 139/71 91 Room Air Laboratory Results 02/26/24 06:09 02/26/24 06:09 PG Care Time/CCT Total # of Minutes Spent Total Time Spent with Patient: Total time spent is greater than 50% in coordination of care (as documented) at patient's floor/unit and/or counseling patient: Coding Level of Care Code 09556 SUB INP/OBS CARE 3/50MIN Diagnoses Perforation of sigmoid colon due to diverticulitis K57.20 COPD (chronic obstructive pulmonary disease) J44.9 Paroxysmal atrial fibrillation I48.0 Prostate cancer C61 Hypertension I10
--- NOTE | 2024-02-26 15:38 | XCELERA ---
[id number]
[2024-02-27 06:48] LABS: Basophils # (auto) 0.01 K/uL (0.00-0.20); Basophils % (auto) 0.1 %; Eosinophils # (auto) 0.02 K/uL (0.00-0.50); Eosinophils % (auto) 0.2 %; Hematocrit (blood only) 30.8 % (42.0-52.0); Hemoglobin 10.7 g/dl (14.0-18.0); Immature Granulocytes # (auto) 0.16 K/uL (0.01-0.20); Immature Granulocytes % (auto) 1.5 %; Lymphocytes # (auto) 0.75 K/uL (1.20-3.40); Lymphocytes % (auto) 6.9 %; Mean Corpuscular Hemoglobin 30.3 pg (25.0-34.0); Mean Corpuscular Hgb Conc 34.7 g/dL (32.0-36.0); Mean Corpuscular Volume 87.3 fL (80.0-100.0); Mean Platelet Volume 11.6 fL (9.4-12.4); Monocytes # (auto) 1.32 K/uL (0.11-0.59); Monocytes % (auto) 12.2 %; Neutrophils # (auto) 8.57 K/uL (1.40-6.50); Neutrophils % (auto) 79.1 %; Platelet Count 213 K/uL (130-400); RDW Coefficient of Variation 13.2 % (11.5-14.5); RDW Standard Deviation 42.4 fL (36.4-46.3); Red Blood Count 3.53 M/uL (4.70-6.10); White Blood Count 10.83 K/ul (4.8-10.8)
[2024-02-27 07:21] LABS: BUN Creatinine Ratio 24.6 (10-20); Bilirubin,Total 0.6 mg/dl (0.2-1.0); Calcium 8.1 mg/dl (8.6-10.3); Creatinine Clr Calc Pharmacy 60.8 ml/min; Est GFR (African American) 97.6 ml/min; Est GFR (Non-African American) 84.2 ml/min; Globulin 2.9 gm/dl (2.5-4.0); Potassium 3.6 mmol/L (3.5-5.1); Total Protein 5.9 gm/dl (6.0-8.3)
[2024-02-27] MEDS: OPTIRAY 320 100ml IV ONE (10:01)
--- NOTE | 2024-02-27 10:26 | CT Scan Report ---
CT OF THE ABDOMEN AND PELVIS WITH CONTRAST CLINICAL HISTORY: Perforated diverticulitis. COMPARISON STUDY: CT of the abdomen and pelvis February 24, 2024. TECHNIQUE: Following IV administration of 94 mL of Optiray, axial images of the abdomen and pelvis we re obtained from the lung bases to the proximal femurs. Images were reviewed in the axial, sagittal, and coronal planes. IV contrast was administered without complication. Automated exposure control wa s utilized for the study. A dose lowering technique was utilized adhering to the principles of ALARA . CT DOSE: 791.34 mGy.cm FINDINGS: Small bilateral pleural effusions have developed since CT of February 24, 2024. Associated subp leural opacities suggest atelectasis. A small pericardial effusion has developed. Multiple subcentime ter hypodense hepatic lesions favor cysts. These are unchanged. There is no biliary or pancreatic rochelle analy dilatation. There is pancreatic glandular atrophy. Spleen, adrenal glands and kidneys are unremar kable. Is no hydronephrosis. Gallbladder distention has slightly increased. Mild gallbladder wall thi ckening has developed. Extensive colonic diverticulosis is present. Several gas and fluid containing collections within the sigmoid mesentery are noted. These were shown on prior exam. Stranding within the pelvis is again noted. There has been interval development of multiple rim-enhancing pockets of f luid within the pelvis since prior CT. A right pelvic fluid collection on image 298 measures 3.8 x 3. 4 cm. A collection along the right aspect of the rectum measures 3.3 x 2.7 cm. Several these collecti ons likely communicate. The proximal to mid small bowel is moderately dilated and fluid-filled, new f inding since prior CT. Possible transition point within the mid ileum within the right lower quadrant on image 250 is noted. Distal small bowel is decompressed. A small amount of pneumoperitoneum is sim ilar to prior CT. Suprapubic catheter is in place. Prostate is surgically absent. L1 compression frac ture is likely subacute. IMPRESSION: 1. No significant change in a small amount of pneumoperitoneum consistent with a perforated hollow vi scus and the findings suggest perforated sigmoid diverticulitis. Interval development of several rim- enhancing pelvic fluid collections suggestive of developing abscesses. 2. Interval development of moderate small bowel dilatation with possible transition point within the right lower quadrant. The findings favor a partial small bowel obstruction. An ileus could appear sim ilar. 3. Small bilateral pleural effusions and a small pericardial effusion. Bilateral lower lobe airspace opacities favor atelectasis. 4. Gallbladder distention, slightly increased since prior exam. Mild gallbladder wall thickening. If right upper quadrant pain, ultrasound is recommended. ACT 112: Negative or not required by law. Electronically signed by: Josef Hall M.D. 02/27/2024 10:24 AM
--- NOTE | 2024-02-27 11:38 | Surgery Progress Note ---
Date of Service February 27, 2024 Assessment & Plan (1) Diverticulitis of intestine with perforation: (2) Perforation of sigmoid colon due to diverticulitis: Plan appears to be improving clinically, white count down to 10; however his CT scan demonstrates small developing abscesses, too small to drain. He also appears to be developing a small bowel obstruction. Will keep him n.p.o. for now. Continue IV antibiotics. If he deteriorates, he may require surgical exploration. Admission and Anticipated Discharge Date Admission Date: February 24, 2024 Subjective he is doing well. Denies significant pain. Is passing flatus and had a few bowel movements. No vomiting. Physical Exam Physical Exam: NAD, A&O x 3 NCAT Abdomen: Soft, mild distention, minimal TTP Results & Data Vital Signs (Past 12 Hours) Vital Signs Temp Pulse Pulse Resp BP Pulse Ox O2 Del Method 02/27/24 11:03 36.3 C L 71 22 119/77 92 Room Air 02/27/24 08:00 139 H 02/27/24 07:06 36.4 C L 96 H 22 123/75 91 Room Air 02/27/24 03:11 36.6 C 74 18 156/76 H 92 Room Air Laboratory Results 02/27/24 Range/Units 06:03 WBC 10.83 H (4.8-10.8) K/ul RBC 3.53 L (4.70-6.10) M/uL Hgb 10.7 L (14.0-18.0) g/dl Hct 30.8 L (42.0-52.0) % MCV 87.3 (80.0-100.0) fL MCH 30.3 (25.0-34.0) pg MCHC 34.7 (32.0-36.0) g/dL RDW Std Deviation 42.4 (36.4-46.3) fL RDW Coeff of Latasha 13.2 (11.5-14.5) % Plt Count 213 (130-400) K/uL MPV 11.6 (9.4-12.4) fL Immature Gran % (Auto) 1.5 % Neut % (Auto) 79.1 % Lymph % (Auto) 6.9 % [place] % (Auto) 12.2 % Eos % (Auto) 0.2 % Baso % (Auto) 0.1 % Neut # (Auto) 8.57 H (1.40-6.50) K/uL Lymph # (Auto) 0.75 L (1.20-3.40) K/uL [place] # (Auto) 1.32 H (0.11-0.59) K/uL Eos # (Auto) 0.02 (0.00-0.50) K/uL Baso # (Auto) 0.01 (0.00-0.20) K/uL Immature Gran # (Auto) 0.16 (0.01-0.20) K/uL Sodium 133 L (136-145) mmol/L Potassium 3.6 (3.5-5.1) mmol/L Chloride 103 (98-107) mmol/L Carbon Dioxide 22 (21-32) mmol/L Anion Gap 8 (3-11) BUN 17 (6-23) mg/dl Creatinine 0.69 (0.6-1.4) mg/dl Est Cr Clr Drug Dosing 60.8 ml/min Est GFR ( Amer) 97.6 ml/min Est GFR (Non-Af Amer) 84.2 ml/min BUN/Creatinine Ratio 24.6 H (10-20) Glucose 107 H (70-99(Fasting)) mg/dl Calcium 8.1 L (8.6-10.3) mg/dl Total Bilirubin 0.6 (0.2-1.0) mg/dl AST 9 L (13-39) U/L ALT 6 L (7-52) U/L Alkaline Phosphatase 42 (34-104) U/L Total Protein 5.9 L (6.0-8.3) gm/dl Albumin 3.0 L (3.4-5.0) gm/dl Globulin 2.9 (2.5-4.0) gm/dl Albumin/Globulin Ratio 1.0 (0.9-2) Diagnostic Findings CT OF THE ABDOMEN AND PELVIS WITH CONTRAST CLINICAL HISTORY: Perforated diverticulitis. COMPARISON STUDY: CT of the abdomen and pelvis February 24, 2024. TECHNIQUE: Following IV administration of 94 mL of Optiray, axial images of the abdomen and pelvis were obtained from the lung bases to the proximal femurs. Images were reviewed in the axial, sagittal, and coronal planes. IV contrast was administered without complication. Automated exposure control was utilized for the study. A dose lowering technique was utilized adhering to the principles of ALARA. CT DOSE: 791.34 mGy.cm FINDINGS: Small bilateral pleural effusions have developed since CT of February 24, 2024. Associated subpleural opacities suggest atelectasis. A small pericardial effusion has developed. Multiple subcentimeter hypodense hepatic lesions favor cysts. These are unchanged. There is no biliary or pancreatic ductal dilatation. There is pancreatic glandular atrophy. Spleen, adrenal glands and kidneys are unremarkable. Is no hydronephrosis. Gallbladder distention has slightly increased. Mild gallbladder wall thickening has developed. Extensive colonic diverticulosis is present. Several gas and fluid containing collections within the sigmoid mesentery are noted. These were shown on prior exam. Stranding within the pelvis is again noted. There has been interval development of multiple rim-enhancing pockets of fluid within the pelvis since prior CT. A right pelvic fluid collection on image 298 measures 3.8 x 3.4 cm. A collection along the right aspect of the rectum measures 3.3 x 2.7 cm. Several these collections likely communicate. The proximal to mid small bowel is moderately dilated and fluid-filled, new finding since prior CT. Possible transition point within the mid ileum within the right lower quadrant on image 250 is noted. Distal small bowel is decompressed. A small amount of pneumoperitoneum is similar to prior CT. Suprapubic catheter is in place. Prostate is surgically absent. L1 compression fracture is likely subacute. IMPRESSION: 1. No significant change in a small amount of pneumoperitoneum consistent with a perforated hollow viscus and the findings suggest perforated sigmoid diverticulitis. Interval development of several rim-enhancing pelvic fluid collections suggestive of developing abscesses. 2. Interval development of moderate small bowel dilatation with possible transition point within the right lower quadrant. The findings favor a partial small bowel obstruction. An ileus could appear similar. 3. Small bilateral pleural effusions and a small pericardial effusion. Bilateral lower lobe airspace opacities favor atelectasis. 4. Gallbladder distention, slightly increased since prior exam. Mild gallbladder wall thickening. If right upper quadrant pain, ultrasound is recommended.
--- NOTE | 2024-02-27 12:25 | Hospitalist Progress Note ---
Date of Service February 27, 2024 Assessment & Plan (1) Perforation of sigmoid colon due to diverticulitis: Plan: recurrent diverticulitis, now with perforation. Continue intravenous Zosyn, day 4. Abdominal pelvic CT scan #2 done today, February 26, reveals possible developing small bowel obstruction and multiple small pelvic abscesses. Appreciate general surgery input. Will keep n.p.o. for now and continue IV fluids and IV antibiotics. (2) COPD (chronic obstructive pulmonary disease): Plan: stable. Continue current medical management (3) Paroxysmal atrial fibrillation: Plan: He developed atrial fibrillation with rapid ventricular rate and hypotension in the late afternoon on February 24. He has since converted back to normal sinus rhythm. Amiodarone drip was discontinued on February 25. Lisinopril is on hold. Cardiac echo report reveals normal ejection fraction with no regional wall motion abnormalities, mild left atrial enlargement, and mild mitral regurgitation. (4) Prostate cancer: Plan: chronic suprapubic catheter in place. (5) Hypertension: Plan: Transiently hypotensive with atrial fibrillation which has now resolved. Lisinopril remains on hold Plan To be determined. OT and PT assessments have been requested Admission and Anticipated Discharge Date Admission Date: February 24, 2024 Subjective Alert and oriented. White count is down to 10,[address] scan reveals possible developing small bowel obstruction and developing pelvic abscesses. Case discussed with general surgery. Will keep n.p.o. for now and continue IV fluids and Zosyn, day 4. OT and PT ordered. He remains in normal sinus rhythm. Cardiac echo revealed normal ejection fraction with no regional wall motion abnormalities, mild left atrial enlargement, and moderate mitral regurgitation. Review of Systems 2 Review of Systems: Constitutional-no fever or chills ENT-no blurred vision, no double vision, no epistaxis, no sore throat Respiratory-no cough, no wheezing, no shortness of breath Cardiac-no palpitations, no chest pain, no syncope GI-no nausea, vomiting, diarrhea, melena, hematochezia. He does have intermittent abdominal discomfort -no urinary retention, no urinary incontinence, no dysuria, no hematuria Musculoskeletal-no joint pain, no muscle tenderness Skin-no bruising, no rashes, no pruritus Neuro-no isolated weakness, no paresthesia, no weakness Psych-no depression, no anxiety Physical Exam 2 Physical Exam: General-alert and oriented x3, no fever, no chills HEENT-head atraumatic and normocephalic, pupils equal and reactive to light, extraocular muscles intact Neck-no lymphadenopathy or thyromegaly, trachea midline Chest-clear to auscultation. No rales, wheezing or rhonchi Cardiac-regular rate and rhythm, normal S1 and S2 Abdomen-normal bowel sounds, no hepatosplenomegaly. Tender to palpation in the lower midline and left lower quadrant. No masses. No rebound or guarding Extremities-no cyanosis, clubbing, or edema Neuro-cranial nerves II through XII intact, motor and sensory function within normal limits, strength symmetrical, no focal deficits Psych-normal affect, normal mood Results & Data Results & Data Vital Signs (Past 12 Hours) Vital Signs Temp Pulse Pulse Resp BP Pulse Ox O2 Del Method 02/27/24 11:03 36.3 C L 71 22 119/77 92 Room Air 02/27/24 08:00 139 H 02/27/24 07:06 36.4 C L 96 H 22 123/75 91 Room Air 02/27/24 03:11 36.6 C 74 18 156/76 H 92 Room Air Laboratory Results 02/27/24 06:03 02/27/24 06:03 PG Care Time/CCT Total # of Minutes Spent Total Time Spent with Patient: Total time spent is greater than 50% in coordination of care (as documented) at patient's floor/unit and/or counseling patient: Coding Level of Care Code 64477 SUB INP/OBS CARE 3/50MIN Diagnoses Perforation of sigmoid colon due to diverticulitis K57.20 COPD (chronic obstructive pulmonary disease) J44.9 Paroxysmal atrial fibrillation I48.0 Prostate cancer C61 Hypertension I10
[2024-02-27] MEDS ORDERED: CLINOLIPID 20% IV FAT EMULSION 250 ML IV SCH (16:00)
[2024-02-27] MEDS ORDERED: TPN/PPN CONSULT PHARMACY PRN (16:42)
[2024-02-27] MEDS ORDERED: PERIPHERAL TPN IV SCH (16:45)
[2024-02-27] MEDS ORDERED: [UNRECOGNIZED DRUG - OTHER] IV SCH (16:45)
[2024-02-27] MEDS: D5W AND NSS 1,000 ML IV SCH (17:04)
[2024-02-27] MEDS: MELATONIN 3 MG TAB PO PRN (22:04)
[2024-02-28 06:17] LABS: Basophils # (auto) 0.01 K/uL (0.00-0.20); Basophils % (auto) 0.2 %; Eosinophils # (auto) 0.03 K/uL (0.00-0.50); Eosinophils % (auto) 0.5 %; Hematocrit (blood only) 28.9 % (42.0-52.0); Hemoglobin 9.9 g/dl (14.0-18.0); Immature Granulocytes # (auto) 0.08 K/uL (0.01-0.20); Immature Granulocytes % (auto) 1.3 %; Lymphocytes # (auto) 0.63 K/uL (1.20-3.40); Lymphocytes % (auto) 10.6 %; Mean Corpuscular Hgb Conc 34.3 g/dL (32.0-36.0); Mean Corpuscular Volume 87.6 fL (80.0-100.0); Mean Platelet Volume 11.1 fL (9.4-12.4); Monocytes # (auto) 1.16 K/uL (0.11-0.59); Monocytes % (auto) 19.6 %; Neutrophils # (auto) 4.02 K/uL (1.40-6.50); Neutrophils % (auto) 67.8 %; Platelet Count 227 K/uL (130-400); RDW Coefficient of Variation 13.3 % (11.5-14.5); RDW Standard Deviation 42.8 fL (36.4-46.3); White Blood Count 5.93 K/ul (4.8-10.8)
[2024-02-28 06:28] LABS: BUN Creatinine Ratio 22.1 (10-20); Calcium 7.6 mg/dl (8.6-10.3); Creatinine Clr Calc Pharmacy 61.7 ml/min; Est GFR (African American) 98.1 ml/min; Est GFR (Non-African American) 84.7 ml/min; Magnesium 1.8 mg/dl (1.7-2.4); Phosphorus 1.6 mg/dl (2.5-4.9); Potassium 3.3 mmol/L (3.5-5.1)
--- NOTE | 2024-02-28 08:05 | Pharmacy Report ---
Pharmacy Initial PN Consult Nt - Date of Service February 28, 2024 - Scope Pharmacy has been consulted on this date to manage parenteral nutrition orders and order appropriate labs. As part of the Nutrition Support Team Guidelines, pharmacy will work in conjunction with dietary when determining the patients c aloric needs. - Subjective * The patient is a 88 year old Male admitted on 02/24/24 for Perforation of sigmoid colon due to diverticulitis, day 5 Zosyn. * Patient is to receive parenteral nutrition for perforated sigmoid colon now showing evidence of SBO and multiple small pelvic abbesses. Pt has been NPO since admission and is receiving IVFs and ABX. Pt has bowel sounds, is passing gas, and having small BMs (02/24, 02/25, 02/26). Plan is to continue NPO at this time and initiate PPN. * Pertinent PMHx: COPD, Prostate cancer with chronic suprapubic catheter in place, HTN. - Objective Vascular Access: * Patient currently has a peripheral line. * Peripheral line was confirmed by IV Team to be acceptable for PPN use on this date. Height & Weight (Last Documented) Height 5 ft 4 in Weight 71.9 kg Diet Order(s) 02/24/24 16:15 NPO Intake & Ouput (24hrs) 02/27/24 02/28/24 02/29/24 06:59 06:59 06:59 Intake Total 2733.883 / 2733.883 2978 / 2978 Output Total 850 / 850 926 / 926 Balance 1883.883 / 8631.328 9897 / 2052 Selected Laboratory Results 02/28/24 05:43 Sodium 133 L Potassium 3.3 L Chloride 105 Carbon Dioxide 23 Anion Gap 5 BUN 15 Creatinine 0.68 Est GFR ( Amer) 98.1 Est GFR (Non-Af Amer) 84.7 BUN/Creatinine Ratio 22.1 H Glucose 143 H Calcium 7.6 L Phosphorus 1.6 L Magnesium 1.8 Triglycerides 114 - Assessment & Plan Assessment: * Appreciate dietitians recommendations for macronutrients. * Patient has been getting D5NS @ 80cc/hr = 96g Dextrose/day and 1920ml/day - therefore will begin PPN at goal macronutrients * Phos low today at 1.6 - replete this AM prior to PN initiation with 21mmol KPhos Plan: * For Day #1 of PPN administration, the following will be ordered: * Macronutrients: * Amino Acids: 77 grams/day * Dextrose: 90 grams/day * Lipids: 50 grams/day * Micronutrients: * TPN electrolytes: 40 mL/day - Contains 35 mEq Na, 20 mEq K, 4.5 mEq Ca, 5 mEq Mg, 35 mEq Cl, 29.5 mEq Acetate per 20 mL * Potassium phosphate: 21 mMol/day * Multivitamins: 10 mL/day * Trace elements: 1 mL/day * Thiamine: 100 mg/day * Folic Acid: 1 mg/day * Total volume of 1859 mL will be infused over 24 hours and will provide 1112 kcal/day * Patient is on PPN which has a maximum mOsm/L of 900. Final osmolarity of current solution is 815 mOsm/L. * Labs will be ordered per PN protocol. * Pharmacy will follow and adjust PN orders on a daily basis. Thank you!
[2024-02-28] MEDS: POTASSIUM PHOSPHATE 21 MMOL in SODIUM CHLORIDE 0.9% 500 ML IV ONE (08:13)
--- NOTE | 2024-02-28 08:24 | Surgery Progress Note ---
Date of Service February 28, 2024 Assessment & Plan (1) Diverticulitis of intestine with perforation: (2) Perforation of sigmoid colon due to diverticulitis: Plan appears to be improving clinically, white count down to 5; however his CT scan demonstrates small developing abscesses, too small to drain. He also appears to be developing a small bowel obstruction. Will keep him n.p.o. for now. Continue IV antibiotics. If he deteriorates, he may require surgical exploration. Admission and Anticipated Discharge Date Admission Date: February 24, 2024 Subjective no change. No nausea or vomiting. Minimal pain. Physical Exam Physical Exam: NAD, A&O x 3 NCAT Abdomen: Soft, mild distention, minimal TTP Results & Data Vital Signs (Past 12 Hours) Vital Signs Temp Pulse Pulse Resp BP Pulse Ox O2 Del Method 02/28/24 07:18 36.8 C 63 18 152/72 H 92 Room Air 02/28/24 04:17 36.9 C 65 16 160/59 H 91 Room Air 02/27/24 22:10 36.8 C 63 16 153/72 H 92 Room Air 02/27/24 21:48 70
[2024-02-28] MEDS: ACETAMINOPHEN 1,000 MG/100 ML VIAL IV STA (12:49)
--- NOTE | 2024-02-28 15:06 | Hospitalist Progress Note ---
Date of Service February 28, 2024 Assessment & Plan (1) Perforation of sigmoid colon due to diverticulitis: Plan: recurrent diverticulitis, now with perforation. Continue intravenous Zosyn, day 5. Abdominal pelvic CT scan #2 done on February 26, reveals possible developing small bowel obstruction and multiple small pelvic abscesses. Will repeat CT scan again tomorrow, February 28. Appreciate general surgery input. Will keep n.p.o. for now and continue IV fluids and IV antibiotics. PPN started today, February 27 (2) COPD (chronic obstructive pulmonary disease): Plan: stable. Continue current medical management (3) Paroxysmal atrial fibrillation: Plan: He developed atrial fibrillation with rapid ventricular rate and hypotension in the late afternoon on February 24. He has since converted back to normal sinus rhythm. Amiodarone drip was discontinued on February 25. Lisinopril has been restarted. Cardiac echo report reveals normal ejection fraction with no regional wall motion abnormalities, mild left atrial enlargement, and mild mitral regurgitation. (4) Prostate cancer: Plan: chronic suprapubic catheter in place. (5) Hypertension: Plan: Transiently hypotensive with atrial fibrillation which has now resolved. Lisinopril will be restarted today, February 27 (6) Hypophosphatemia: Plan: Parenteral replacement. Serial labs Plan To be determined. OT and PT assessments have been requested Admission and Anticipated Discharge Date Admission Date: February 24, 2024 Subjective Alert and oriented. No new problems. Surgery entry noted. Will obtain CT scan of the abdomen again tomorrow, February 28, to reassess the question of developing small bowel obstruction and pelvic abscesses. White count continues to improve down to 5900. Surgery entry noted. He remains n.p.o. and peripheral parenteral nutrition has been started. Potassium and phosphorus replacement today, February 27 Review of Systems 2 Review of Systems: Constitutional-no fever or chills ENT-no blurred vision, no double vision, no epistaxis, no sore throat Respiratory-no cough, no wheezing, no shortness of breath Cardiac-no palpitations, no chest pain, no syncope GI-no nausea, vomiting, diarrhea, melena, hematochezia. He does have intermittent abdominal discomfort -no urinary retention, no urinary incontinence, no dysuria, no hematuria Musculoskeletal-no joint pain, no muscle tenderness Skin-no bruising, no rashes, no pruritus Neuro-no isolated weakness, no paresthesia, no weakness Psych-no depression, no anxiety Physical Exam 2 Physical Exam: General-alert and oriented x3, no fever, no chills HEENT-head atraumatic and normocephalic, pupils equal and reactive to light, extraocular muscles intact Neck-no lymphadenopathy or thyromegaly, trachea midline Chest-clear to auscultation. No rales, wheezing or rhonchi Cardiac-regular rate and rhythm, normal S1 and S2 Abdomen-normal bowel sounds, no hepatosplenomegaly. Tender to palpation in the lower midline and left lower quadrant. No masses. No rebound or guarding Extremities-no cyanosis, clubbing, or edema Neuro-cranial nerves II through XII intact, motor and sensory function within normal limits, strength symmetrical, no focal deficits Psych-normal affect, normal mood Results & Data Results & Data Vital Signs (Past 12 Hours) Vital Signs Temp Pulse Pulse Resp BP Pulse Ox Pulse Ox 02/28/24 14:14 64 02/28/24 11:43 36.4 C L 64 16 169/91 H 91 02/28/24 09:26 91 02/28/24 08:00 63 02/28/24 07:18 36.8 C 63 18 152/72 H 92 02/28/24 04:17 36.9 C 65 16 160/59 H 91 O2 Del Method O2 Flow Rate 02/28/24 14:14 02/28/24 11:43 Room Air 02/28/24 09:26 0 02/28/24 08:00 02/28/24 07:18 Room Air 02/28/24 04:17 Room Air Laboratory Results 02/28/24 05:43 02/28/24 05:43 PG Care Time/CCT Total # of Minutes Spent Total Time Spent with Patient: Total time spent is greater than 50% in coordination of care (as documented) at patient's floor/unit and/or counseling patient: Coding Level of Care Code 13708 SUB INP/OBS CARE 3/50MIN Diagnoses Perforation of sigmoid colon due to diverticulitis K57.20 COPD (chronic obstructive pulmonary disease) J44.9 Paroxysmal atrial fibrillation I48.0 Prostate cancer C61 Hypertension I10 Hypophosphatemia E83.39
[2024-02-28] MEDS: lisinopril 10 MG TAB PO SCH (15:58)
[2024-02-28] MEDS ORDERED: DEXTROSE 10% 1,000 ML IV PRN (16:00)
[2024-02-28] MEDS: PERIPHERAL TPN IV SCH (16:00)
[2024-02-28] MEDS: [UNRECOGNIZED DRUG - OTHER] IV SCH (16:00)
[2024-02-28] MEDS: CLINOLIPID 20% IV FAT EMULSION 250 ML IV SCH (16:01)
[2024-02-28] MEDS: MoRPHine SULFATE 2 MG/ML CARP IV PRN (21:36)
[2024-02-28] MEDS: ACETAMINOPHEN 1,000 MG/100 ML VIAL IV PRN (21:37)
[2024-02-28] MEDS: STOP CLINOLIPID SCH (22:05)
[2024-02-29 06:54] LABS: Basophils # (auto) 0.02 K/uL (0.00-0.20); Basophils % (auto) 0.2 %; Eosinophils # (auto) 0.04 K/uL (0.00-0.50); Eosinophils % (auto) 0.5 %; Hematocrit (blood only) 30.6 % (42.0-52.0); Hemoglobin 10.4 g/dl (14.0-18.0); Immature Granulocytes # (auto) 0.35 K/uL (0.01-0.20); Immature Granulocytes % (auto) 4.3 %; Lymphocytes # (auto) 0.88 K/uL (1.20-3.40); Lymphocytes % (auto) 10.8 %; Mean Corpuscular Hemoglobin 30.2 pg (25.0-34.0); Mean Platelet Volume 11.3 fL (9.4-12.4); Monocytes # (auto) 2.08 K/uL (0.11-0.59); Monocytes % (auto) 25.6 %; Neutrophils # (auto) 4.77 K/uL (1.40-6.50); Neutrophils % (auto) 58.6 %; Platelet Count 227 K/uL (130-400); RDW Coefficient of Variation 13.1 % (11.5-14.5); RDW Standard Deviation 42.8 fL (36.4-46.3); Red Blood Count 3.44 M/uL (4.70-6.10); White Blood Count 8.14 K/ul (4.8-10.8)
[2024-02-29] MEDS: OPTIRAY 320 100ml IV ONE (07:56)
--- NOTE | 2024-02-29 09:01 | CT Scan Report ---
CT OF THE ABDOMEN AND PELVIS WITH CONTRAST CLINICAL HISTORY: Perforated sigmoid diverticulitis. COMPARISON STUDY: CT of the abdomen and pelvis February 27, 2024. TECHNIQUE: Following IV administration of 93 mL of Optiray, axial images of the abdomen and pelvis we re obtained from the lung bases to the proximal femurs. Images were reviewed in the axial, sagittal, and coronal planes. IV contrast was administered without complication. Automated exposure control wa s utilized for the study. A dose lowering technique was utilized adhering to the principles of ALARA . CT DOSE: 927.91 mGy.cm FINDINGS: Small bilateral pleural effusions have mildly increased in size. Lower lobe airspace opacit ies with volume loss favor atelectasis. Pneumoperitoneum has resolved. Subcentimeter hypodense hepati c lesions favor cysts. Spleen, adrenal glands, kidneys and pancreas are unremarkable with the excepti on of pancreatic glandular atrophy. Gallbladder distention with gallbladder wall thickening remains u nchanged. Peritoneal enhancement with omental stranding and ascites has mildly increased. There is ex tensive colonic diverticulosis, most pronounced within the sigmoid colon. Small gas and fluid contain ing collection within the sigmoid mesentery is unchanged, measuring 2.4 cm. Inflammation adjacent to the sigmoid colon has slightly increased. Several rim-enhancing right pelvic fluid collections are no aiden. The largest collection has slightly increased in size, along the right aspect of the sigmoid col on, measuring 5.2 x 3.4 cm, previously 3.8 x 3.4 cm. A right perirectal component measures 3.1 x 2.8 cm, similar to prior exam. The proximal to mid small bowel is moderately dilated and fluid-filled. Sm all bowel dilatation has slightly increased. Transition point within the right lower quadrant, within the mid ileum on image 225 of 269 is noted. Wall thickening of several small bowel loops is present. This was shown on prior exam. IMPRESSION: 1. Findings suggestive of perforated sigmoid diverticulitis. Although pneumoperitoneum has resolved, the remainder of the findings have progressed since CT of February 27, 2024. Mild increase in size of rim -enhancing right pelvic fluid collection consistent with multiple pelvic abscesses. Increase in perit gibson/mesenteric inflammation. 2. Findings consistent with a small bowel obstruction, as described above. Mild progression since tita or exam. 3. No change in mild gallbladder distention and mild gallbladder wall thickening. If right upper quad rant pain, ultrasound is recommended. 4. Increase in small bilateral pleural effusions. Associated bibasilar opacities favor atelectasis. ACT 112: Negative or not required by law. Electronically signed by: Josef Hall M.D. 02/29/2024 8:59 AM
[2024-02-29 10:54] LABS: Calcium 7.8 mg/dl (8.6-10.3); Magnesium 1.9 mg/dl (1.7-2.4); Potassium 3.6 mmol/L (3.5-5.1)
[2024-02-29 11:00] LABS: BUN Creatinine Ratio 22.4 (10-20); Creatinine Clr Calc Pharmacy 78.6 ml/min; Est GFR (African American) 104.8 ml/min; Est GFR (Non-African American) 90.4 ml/min; Phosphorus 1.9 mg/dl (2.5-4.9)
--- NOTE | 2024-02-29 12:06 | Surgery Progress Note ---
Date of Service February 29, 2024 Assessment & Plan (1) Diverticulitis of intestine with perforation: Plan: tolerating sips and chips Getting TPN , continue Repeat CT this AM showing increase in abd abscess reached out to IR, is unable to access collections safely VSS abd TTP throughout reports more discomfort lower quadrants, firm WBC wnl Continue IV antibiotics Will discuss plan with surgeon Dr Lopes Admission and Anticipated Discharge Date Admission Date: February 24, 2024 Supervising Physician Co-Signing Physician Notes I personally saw and evaluated the patient with Curt WOODS and agree with the assessment and plan. 88 yo male with perforated diverticulitis His CT images from today and the weekend were personally viewed and interpreted by myself He has some now mature appearing abscesses with less pneumoperitoneum than his original scan We did discuss his CT results with IR here, however he thought only the pelvic abscess could be drained percutaneously, which is the smaller of the two I think with his history of prostatectomy and pelvic radiation as well as his indwelling SP tube, transferring him to a tertiary care center with more robust IR capabilities as well as colorectal surgery would be in the patients best interest He is not worsening clinically, but unsure he will completely resolve this episode without at least drainage of one or both areas Will continue to follow Subjective pt without n/v has been sips and chips states he feels about the same had small bm Review of Systems Gastrointestinal: + abdominal pain; no nausea and no vomit ing Physical Exam Gastrointestinal (Abdomen): Inspection/Auscultation: + abdomen distended Percussion/Palpation: + abdomen tender and + abdomen firm Results & Data Vital Signs (Past 12 Hours) Vital Signs Temp Pulse Pulse Resp BP BP Pulse Ox 02/29/24 10:39 91 02/29/24 10:06 97.7 F 66 17 148/79 H 95 02/29/24 09:15 64 02/29/24 07:51 02/29/24 07:22 97.7 F 64 19 161/77 H 91 02/29/24 04:05 98.1 F 60 18 138/70 92 O2 Del Method O2 Flow Rate 02/29/24 10:39 2 02/29/24 10:06 Room Air 02/29/24 09:15 02/29/24 07:51 Nasal Cannula 2 02/29/24 07:22 Nasal Cannula 2 02/29/24 04:05 Room Air Diagnostic Findings [place], [place] [phone] CT Scan Report Patient: WASHINGTON EDWARDS Admit Date: 02/24/24 MR#: [id number] Address1: [address] Acct ID:[id number] Address2: [address] Date: 1935 [facility] Zip: [place] [address] Age: 88 Location: Sex: M Room/Bed: [facility] Att Phy: Serge Sheth MD Diagnosis: DIVERTICULITIS Agnes Phy: Alexandra EllisD.O. Service Date: 02/29/24 Fam Phy: Interpreting [facility]: Tequila Franklin MD Ordering Phy: Serge Sheth MD cc: ~ CT OF THE ABDOMEN AND PELVIS WITH CONTRAST CLINICAL HISTORY: Perforated sigmoid diverticulitis. COMPARISON STUDY: CT of the abdomen and pelvis February 27, 2024. TECHNIQUE: Following IV administration of 93 mL of Optiray, axial images of the abdomen and pelvis were obtained from the lung bases to the proximal femurs. Images were reviewed in the axial, sagittal, and coronal planes. IV contrast was administered without complication. Automated exposure control was utilized for the study. A dose lowering technique was utilized adhering to the principles of ALARA. CT DOSE: 927.91 mGy.cm FINDINGS: Small bilateral pleural effusions have mildly increased in size. Lower lobe airspace opacities with volume loss favor atelectasis. Pneumoperitoneum has resolved. Subcentimeter hypodense hepatic lesions favor cysts. Spleen, adrenal glands, kidneys and pancreas are unremarkable with the exception of pancreatic glandular atrophy. Gallbladder distention with gallbladder wall thickening remains unchanged. Peritoneal enhancement with omental stranding and ascites has mildly increased. There is extensive colonic diverticulosis, most pronounced within the sigmoid colon. Small gas and fluid containing collection within the sigmoid mesentery is unchanged, measuring 2.4 cm. Inflammation adjacent to the sigmoid colon has slightly increased. Several rim-enhancing right pelvic fluid collections are noted. The largest collection has slightly increased in size, along the right aspect of the sigmoid colon, measuring 5.2 x 3.4 cm, previously 3.8 x 3.4 cm. A right perirectal component measures 3.1 x 2.8 cm, similar to prior exam. The proximal to mid small bowel is moderately dilated and fluid- filled. Small bowel dilatation has slightly increased. Transition point within the right lower quadrant, within the mid ileum on image 225 of 269 is noted. Wall thickening of several small bowel loops is present. This was shown on prior exam. IMPRESSION: 1. Findings suggestive of perforated sigmoid diverticulitis. Although pneumoperitoneum has resolved, the remainder of the findings have progressed since CT of February 27, 2024. Mild increase in size of rim-enhancing right pelvic fluid collection consistent with multiple pelvic abscesses. Increase in periton eal/mesenteric inflammation. 2. Findings consistent with a small bowel obstruction, as described above. Mild progression since prior exam. 3. No change in mild gallbladder distention and mild gallbladder wall thickening. If right upper quadrant pain, ultrasound is recommended. 4. Increase in small bilateral pleural effusions. Associated bibasilar opacities favor atelectasis. ACT 112: Negative or not required by law. Electronically signed by: Josef Hall M.D. 02/29/2024 8:59 AM Dictated: 02/29/24 0838 Transcribed: 02/29/24 0841 Results CBC w Diff Results: RBC 3.44 M/uL (4.70-6.10) L 02/29/24 WBC 8.14 K/ul (4.8-10.8) 02/29/24 Hgb 10.4 g/dl (14.0-18.0) L 02/29/24 Hct 30.6 % (42.0-52.0) L 02/29/24 MCV 89.0 fL (80.0-100.0) 02/29/24 MCH 30.2 pg (25.0-34.0) 02/29/24 MCHC 34.0 g/dL (32.0-36.0) 02/29/24 RDW Standard Deviation 42.8 fL (36.4-46.3) 02/29/24 RDW Coefficient of Variation 13.1 % (11.5-14.5) 02/29/24 Plt Count 227 K/uL (130-400) 02/29/24 MPV 11.3 fL (9.4-12.4) 02/29/24 Neutrophils (%) (Auto) 58.6 % 02/29/24 Lymphocytes (%) (Auto) 10.8 % 02/29/24 Monocytes # (Auto) 2.08 K/uL (0.11-0.59) H 02/29/24 Eosinophils # (Auto) 0.04 K/uL (0.00-0.50) 02/29/24 Immature Granulocyte % (Auto) 4.3 % 02/29/24 Neutrophils # (Auto) 4.77 K/uL (1.40-6.50) 02/29/24 Lymphocytes # (Auto) 0.88 K/uL (1.20-3.40) L 02/29/24 Monocytes # (Auto) 2.08 K/uL (0.11-0.59) H 02/29/24 Eosinophils # (Auto) 0.04 K/uL (0.00-0.50) 02/29/24 Basophils # (Auto) 0.02 K/uL (0.00-0.20) 02/29/24 Immature Granulocyte # (Auto) 0.35 K/uL (0.01-0.20) H 02/28 ANC 3.86 K/uL (1.4-6.5) 09/16/21 ALC 1.52 K/uL (1.2-3.4) 09/16/21 Neutrophils % (Manual) 58.9 % 09/16/21 Lymphocytes % (Manual) 23.2 % 09/16/21 Monocytes % (Manual) 12.5 % 09/16/21 Eosinophils % (Manual) 2.7 % 09/16/21 Basophils % (Manual) 0.9 % 09/16/21 Metamyelocytes % (manual) 0.9 % 09/16/21 Myelocytes % (Manual) 0.9 % 09/16/21 Neutrophils # (Manual) 3.86 K/uL (1.4-6.5) 09/16/21 Lymphocytes # (Manual) 1.52 K/uL (1.2-3.4) 09/16/21 Monocytes # (Manual) 0.82 K/uL (0.11-0.59) H 09/16/21 Eosinophils # (Manual) 0.18 K/uL (0-0.5) 09/16/21 Basophils # (Manual) 0.06 K/uL (0-0.2) 09/16/21 Metamyelocytes # (Manual) 0.06 K/uL (0-0) H 09/16/21 Myelocytes # (Manual) 0.06 K/uL (0-0) H 09/16/21 Red Blood Cell Morphology Unremarkable 09/16/21 Echinocytes 1+ 02/25/24 PG Care Time/CCT Total # of Minutes Spent Total Time Spent with Patient: Total time spent is greater than 50% in coordination of care (as documented) at patient's floor/unit and/or counseling patient: Coding Level of Care Code 73515 SUB INP/OBS CARE 09/24MIN Diagnoses Diverticulitis of intestine with perforation K57.80
[2024-02-29] MEDS: PIPERACILLIN/TAZOBACTAM 4.5 GM in DEXTROSE 5% MINI-B 100 ML IV SCH (13:35)
--- NOTE | 2024-02-29 15:17 | Hospitalist Progress Note ---
Date of Service February 29, 2024 Assessment & Plan (1) Perforation of sigmoid colon due to diverticulitis: Plan: recurrent diverticulitis, now with perforation. Continue intravenous Zosyn, day 6. Abdominal pelvic CT scan #3 done today reveals progression of pelvic abscesses and developing small bowel obstruction. Surgery consultation and recommendations appreciated. 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 The patient and family have opted for [facility] and our transfer center has been notified. Keep n.p.o. and continue PPN IV fluids and IV antibiotics. (2) COPD (chronic obstructive pulmonary disease): Plan: stable. Continue current medical management (3) Paroxysmal atrial fibrillation: Plan: He developed atrial fibrillation with rapid ventricular rate and hypotension in the late afternoon on February 24. He has since converted back to normal sinus rhythm. Amiodarone drip was discontinued on February 25. Lisinopril has been restarted. Cardiac echo report reveals normal ejection fraction with no regional wall motion abnormalities, mild left atrial enlargement, and mild mitral regurgitation. (4) Prostate cancer: Plan: chronic suprapubic catheter in place. He had previous radiation therapy and general surgery was concerned about the possibility of a frozen pelvis (5) Hypertension: Plan: Transiently hypotensive with atrial fibrillation which has now resolved. Lisinopril was restarted on February 27 and well-tolerated so far (6) Hypophosphatemia: Plan: Corrected with parenteral replacement. Serial labs Plan Transfer to [facility] for colorectal surgery. Admission and Anticipated Discharge Date Admission Date: February 24, 2024 Subjective Alert and oriented. Family is at the bedside. Abdomen CT scan #3 looks worse although the patient is clinically stable. He remains on intravenous Zosyn. I spoke to our surgeon who recommends transfer to a tertiary care center for colorectal surgery in the event that he has a frozen pelvis from previous prostate cancer radiation therapy. Family has decided on [facility] and our transfer center has been notified and are making appropriate contacts now. Review of Systems 2 Review of Systems: Constitutional-no fever or chills ENT-no blurred vision, no double vision, no epistaxis, no sore throat Respiratory-no cough, no wheezing, no shortness of breath Cardiac-no palpitations, no chest pain, no syncope GI-no nausea, vomiting, diarrhea, melena, hematochezia. He does have intermittent abdominal discomfort -no urinary retention, no urinary incontinence, no dysuria, no hematuria Musculoskeletal-no joint pain, no muscle tenderness Skin-no bruising, no rashes, no pruritus Neuro-no isolated weakness, no paresthesia, no weakness Psych-no depression, no anxiety Physical Exam 2 Physical Exam: General-alert and oriented x3, no fever, no chills HEENT-head atraumatic and normocephalic, pupils equal and reactive to light, extraocular muscles intact Neck-no lymphadenopathy or thyromegaly, trachea midline Chest-clear to auscultation. No rales, wheezing or rhonchi Cardiac-regular rate and rhythm, normal S1 and S2 Abdomen-normal bowel sounds, no hepatosplenomegaly. Tender to palpation in the lower midline and left lower quadrant. No masses. No rebound or guarding Extremities-no cyanosis, clubbing, or edema Neuro-cranial nerves II through XII intact, motor and sensory function within normal limits, strength symmetrical, no focal deficits Psych-normal affect, normal mood Results & Data Results & Data Vital Signs (Past 12 Hours) Vital Signs Temp Pulse Pulse Resp BP BP Pulse Ox 02/29/24 10:39 91 02/29/24 10:06 36.5 C 66 17 148/79 H 95 02/29/24 09:15 64 02/29/24 07:51 02/29/24 07:22 36.5 C 64 19 161/77 H 91 02/29/24 04:05 36.7 C 60 18 138/70 92 O2 Del Method O2 Flow Rate 02/29/24 10:39 2 02/29/24 10:06 Room Air 02/29/24 09:15 02/29/24 07:51 Nasal Cannula 2 02/29/24 07:22 Nasal Cannula 2 02/29/24 04:05 Room Air Laboratory Results 02/29/24 05:49 02/29/24 05:49 PG Care Time/CCT Total # of Minutes Spent Total Time Spent with Patient: Total time spent is greater than 50% in coordination of care (as documented) at patient's floor/unit and/or counseling patient: Coding Level of Care Code 02664 SUB INP/OBS CARE 3/50MIN Diagnoses Perforation of sigmoid colon due to diverticulitis K57.20 COPD (chronic obstructive pulmonary disease) J44.9 Paroxysmal atrial fibrillation I48.0 Prostate cancer C61 Hypertension I10 Hypophosphatemia E83.39
[2024-02-29] MEDS: CLINOLIPID 20% IV FAT EMULSION 250 ML IV SCH (16:05)
[2024-02-29] MEDS: PERIPHERAL TPN IV SCH (16:06)
[2024-02-29] MEDS: [UNRECOGNIZED DRUG - OTHER] IV SCH (16:06)
== END 2024-03-01 00:45 | disposition short-term general hospital (02) | DRG 392 ==
LOC: ED 10:25 → EDINP 16:13 → SUATTDRO 17:36 → 2S 23:51